=== PATIENT | female | born 1945 | race Caucasian/White ===

== ENCOUNTER 2020-04-23 14:56 | Outpatient (CLI) | payer MEDICARE, SELFPAY ==
--- NOTE | ~2020-04-23 | XR_ITS ---
XR hip RT min 2V DATE: 04/23/2020 16:07 INDICATION: Increased pain, reduced mobility TECHNIQUE: 2 views COMPARISON: None FINDINGS: There is severe right hip joint space narrowing, with obliteration of the joint space super olaterally. There is bone destruction at the lateral aspect of the femoral head and apparently lateral aspect of the acetabulum as well. Right hip joint infection and osteomyelitis are suspected. Differential rick gnosis includes avascular necrosis of the femoral head and severe osteoarthritis. No fracture is evident. Diffuse osteopenia. IMPRESSION: Severe joint space narrowing and bone destruction at the lateral aspect of the femoral he ad and acetabulum, suggesting infected joint, associated osteomyelitis Reviewed, dictated and finalized at location A. [employer] ARTISTIC DIRECTOR IMPRESSION: Severe joint space narrowing and bone destruction at the lateral as pect of the femoral head and acetabulum, suggesting infected joint, associated osteomyelitis
--- NOTE | ~2020-04-23 | XR_ITS ---
EXAMINATION: XR knee RT min 4V DATE: 04/23/2020 16:08 INDICATION: Right knee pain. TECHNIQUE: 4 views of right knee were obtained. COMPARISON: None. FINDINGS: There is varus angulation at the knee. No fracture. There is diffuse osteopenia. There is s evere osteoarthritis of medial compartment and mild osteoarthritis of lateral and patellofemoral comp artments. No knee joint effusion. IMPRESSION: 1. Severe right knee osteoarthritis. Reviewed, dictated and finalized at location A. CIAL LAW CLERK
--- NOTE | ~2020-04-23 | XR_ITS ---
EXAMINATION: XR knee LT min 4V DATE: 04/23/2020 16:08 INDICATION: Left knee pain. TECHNIQUE: 4 views of left knee were obtained. COMPARISON: None. FINDINGS: There is varus angulation at the knee. No fracture. There is severe osteoarthritis of media l compartment and mild osteoarthritis of lateral and patellofemoral compartments. There is chondrocal cinosis of the menisci. There is a small knee joint effusion. IMPRESSION: 1. Severe left knee osteoarthritis. 2. Small left knee joint effusion. Reviewed, dictated and finalized at location A. RAISING DIRECTOR
== END 2020-04-23 14:57 | disposition home or self-care (01) ==
PROVIDERS: PCP Family Medicine
DX: M17.0 Bilateral primary osteoarthritis of knee (principal); M25.462 Effusion, left knee; M25.551 Pain in right hip
CPT/HCPCS: 73502; 73564

== ENCOUNTER 2020-05-01 10:08 | Emergency (ER) | payer MEDICARE, SELFPAY ==
--- NOTE | ~2020-05-01 | CT_ITS ---
EXAMINATION: CT hip RT wo con DATE: 05/01/2020 11:25 INDICATION: Severe right hip arthritis on prior] radiographs with appearance suggestive of possible o steomyelitis. TECHNIQUE: High resolution computed tomography (CT) of the right hip was performed without intravenou s contrast. Additional sagittal and coronal reconstructions were performed. Automated exposure contro l and iterative reconstruction technique were employed. The dose-length product was 887.11 mGy-cm. COMPARISON: Right hip radiographs dated 04/23/2020 FINDINGS: No fracture. Advanced osteoarthritis at the right hip with severe joint space narrowing with bone-on- bone apposition. There is subarticular sclerosis and cystic change along both sides of the joint spac e. There is remodeling with loss of bone stock along the along the cephalad aspect of the right femor al head. There are chronic erosions with sclerotic margins on the superolateral femoral head neck remi ction. The joint space narrowing and remodeling of the bones results in mild superolateral migration of the femoral head relative to the epicenter of the acetabulum. The inferomedial aspect of the joint space is now partially filled with prominent marginal osteophytes arising from the inferomedial aspe ct of the femoral head and inferior aspect of the acetabulum. There is suggestion of possible develop ing fusion across the joint spaces, correlate with physical exam for residual mobility at the hip alejandro nt. No significant right hip joint effusion. Mild fatty atrophy of the musculature about the right hi p and proximal thigh. There are few diverticula along the visualized portion of the sigmoid colon wit hout adjacent inflammatory change to suggest diverticulitis. Bladder and uterus are unremarkable. No pathologically enlarged right pelvic or inguinal lymphadenopathy. IMPRESSION: 1. Advanced right hip osteoarthritis potentially with developing ankylosis. No joint effusion or othe r findings to raise suspicion for septic arthritis/osteomyelitis. Reviewed, dictated and finalized at location B. SOM TECH IMPRESSION: 1. Advanced right hip osteoarthritis potentially with developing ankylosis. No joint effusion or other findings to raise suspicion for septic arthritis/osteom yelitis.
[2020-05-01 10:14] VITALS: BP 146/70; PULSE 78; RESP 16; TEMP 36.4; O2SAT 98
--- NOTE | 2020-05-01 10:21 | ED.GENADULT ---
HPI - General Adult General Chief complaint: Unspecified Stated complaint: hip pain Time Seen by Provider: 05/01/20 10:20 History of Present Illness HPI narrative: Sent here by PCP for possible osteo myelitis of the right hip. She reports that she has chronic pain in the right hip and knees bilaterally. This pain has worsened recently. She had x-rays done yesterday showing possible osteomyelitis or avascular necrosis of the the right hip. She reports no significant trauma. No fever or other systemic symptoms. Related Data Allergies Allergy/AdvReac Type Severity Reaction Status Date / Time No Known Allergies Allergy Verified 05/01/20 10:13 Review of Systems Review of Systems: All systems reviewed & are unremarkable except as noted in HPI and below Constitutional: Constitutional: Denies chills and Denies fever(s) Eyes: Eyes: Reports no additional eye complaints ENT: Reports system reviewed and no additional complaints, except as documented Cardiovascular: Cardiovascular: Denies chest pain Respiratory: Respiratory: Reports dyspnea on exertion Gastrointestinal: Gastrointestinal: Denies nausea and Denies vomiting Neurologic: Denies weakness [facility] Family History Family History (Updated 01/03/17 @ 08:00 by DOCTOR UNKNOWN) Sibling Hypertension Family history of malignant neoplasm of breast in first degree relative Father Hypertension Social History Social History Smoking status: Never smoker Alcohol intake: never Gender identity (if verbalized by the patient): Female Comments She reports no active medical issues Exam Const: General: no acute distress and alert Nutritional Appearance: obese Orientation/consciousness: patient oriented x3 HENMT: Head: normal to inspection Neck: Neck: normal visual inspection Chest: Chest palpation & inspection: no tenderness Resp: Effort & Inspection: normal respiratory effort Auscultation: clear to auscultation bilaterally, no rales, no rhonchi and no wheezes Cardio: Jugular venous distension: no JVD Rate: regular rate Rhythm: regular rhythm Heart sounds: no murmurs GI: Inspection: non-distended GI Palp: Yes Soft to palpation and No Tenderness to palpation present (GI) Skin: General skin exam: normal color Neuro: General: patient oriented x3, gait normal, moves all extremities and CN's II-XI intact bilaterally Speech: normal speech Extrem: General: edema bilateral (2+) Psych: Appearance: well kempt Affect: normal affect Course Course Emergency Course: CT of the hip consistent with severe osteoarthritis. Discussed with Dr. Aquino. He is recommending follow-up with PCP and possibly outpatient refferal to ortho at a later date. Dr. Werner contacted. He will follow-up with her next week. He would like me to prescribe a small amount of pain medication until then. Vital Signs Vital signs: Vital Signs Temperature 36.4 C L 05/01/20 10:14 Pulse Rate 78 05/01/20 10:14 Respiratory Rate 16 05/01/20 10:14 Blood Pressure 146/70 H 05/01/20 10:14 Pulse Oximetry 98 05/01/20 10:14 Temperature 36.4 C L 05/01/20 10:14 Pulse Rate 80 05/01/20 12:21 Respiratory Rate 12 05/01/20 12:21 Blood Pressure 136/73 05/01/20 12:21 Pulse Oximetry 98 05/01/20 12:21 Medical Decision Making Medical Records Medical records reviewed: Yes I reviewed the external patient's medical records. Vital Signs Vital Signs: Vital Signs Temperature 36.4 C L 05/01/20 10:14 Pulse Rate 78 05/01/20 10:14 Respiratory Rate 16 05/01/20 10:14 Blood Pressure 146/70 H 05/01/20 10:14 Pulse Oximetry 98 05/01/20 10:14 Temperature 36.4 C L 05/01/20 10:14 Pulse Rate 80 05/01/20 12:21 Respiratory Rate 12 05/01/20 12:21 Blood Pressure 136/73 05/01/20 12:21 Pulse Oximetry 98 05/01/20 12:21 Lab Data Lab results reviewed: Yes I reviewed the patient's lab results. Imaging Data Radiologist's impression: ITS Impressions
--- NOTE | 2020-05-01 10:34 | ECG_ITS ---
Measurements Intervals [place] Rate: 79 P: 44 MN: 170 QRS: -11 QRSD: 78 T: 47 QT: 375 QTc: 431 Interpretive Statements SINUS RHYTHM DELAYED PRECORDIAL R/S TRANSITION BORDERLINE T WAVE ABNORMALITY- ANTERIOR LEADS BASELINE ARTIFACT- II, III, AVF, V4 BORDERLINE ECG Electronically Signed On 05-01-2020 11:09:44 STATIONARY ENGINEER SUPERVISOR by Malik Dietrich D.O.
[2020-05-01 12:21] VITALS: BP 136/73; PULSE 80; RESP 12; O2SAT 98
== END 2020-05-01 13:38 | disposition home or self-care (01) ==
PROVIDERS: Emergency Provider Emergency Medicine; PCP Family Medicine
DX: M16.11 Unilateral primary osteoarthritis, right hip (principal); R94.31 Abnormal electrocardiogram [ECG] [EKG]
CPT/HCPCS: 73700; 93005; 99284

== ENCOUNTER 2020-06-04 13:15 | Outpatient (RCR) | payer MEDICARE, SELFPAY ==
--- NOTE | 2020-05-14 17:53 | PTOPEVAL ---
PHYSICAL THERAPY EVALUATION Thank you for referring Cristina Will to [facility].? The patient is scheduled to be seen for therapy?1 x/week for 4 weeks. Please review, sign, date and return this plan of care JOHNATHON. I agree with and certify that the following plan of care is medically necessary. Referring Physician Date Attending Provider: Sascha Werner MD *PT Outpatient Evaluation Start: 05/14/20 13:36 Freq: Status: Active Protocol: Document 05/14/20 13:20 MLV (Rec: 05/14/20 14:23 MLV [id number]) Therapy Assessment Status Assessment Status Evaluation Evaluation Information Problem Diagnosis dena. knee DJD/pain Onset chronic and progressive Cause no injury Additional Evaluation Detail The patient reports a progressive increase in dena. knee pain and right hip pain and the symptoms are now affecting her ability to get around. The patient has been using a rollator walker for about 1.5 years and now requires w/c on outings for last few months due to pain/ limits. The patient's goal is to have less pain with mobility in her home. The patient also has pain with sleeping and has a goal to sleep better with less pain. Diagnostic Tests X-Rays For This Problem Yes: severe dena. knee DJD Previous Treatments Previous Treatments For This Problem none Prior Level of Function Activity Level (Last 3 Months) Occupation retired Hand Dominance Right Activity of Daily Living Ability Independent Indoor/Home Mobility Independent Community Mobility Needs Some Help Stairs Ability Independent Functional Cognition (Planning, Shopping Needs Some Help , Taking Medications) Cooking No Cleaning No Laundry Yes Shopping No Driving No Home Setting Home Type House,Multiple Levels Environmental Barriers Jerilyn, Carpet,Jerilyn, Laminate Living Situation With Adult Child Support Available Local Family Support Mobility Assistive Devices (Used Last 3 Walker, Rollator,Wheelchair, Months) Manual,Wheelchair, Scooter Bathroom Environment Kristyn
--- NOTE | 2020-05-30 13:32 | PCPTNOTE ---
Patient called & cancelled scheduled appointment this date due to foot swelling and is calling the
--- NOTE | 2020-06-11 12:37 | PCPTNOTE ---
Patient called & cancelled scheduled appointment this date due to hip pain. Rescheduled.
--- NOTE | 2020-06-20 15:23 | PCPTNOTE ---
Note on 06/11/20 incorrect- patient had cancelled but did not reschedule and has not called to reschedule. Last appointment was to be a reassessment. DC PT at this time.
--- NOTE | 2020-06-20 15:25 | PCPTNOTE ---
PHYSICAL THERAPY DISCHARGE Attending Provider: Sascha Werner MD Patient:Cristina Will Date of :1945 Patient has not returned for any further treatments since 06/04/2020, therefore she will be discharged at this time. Patient?s initial visit was on 05/14/2020 13:15 and she had a total of 2 visits. The goals have not been met; only seen for 2 visits.. Thank you for referring this patient to [facility]. Please review, sign, date and return this discharge summary JOHNATHON. I have been updated about the patient's current status and I agree with discharge from the above service at this time. Referring Physician Date
== END 2020-07-08 14:11 | disposition home or self-care (01) ==
LOC: ANHPT 13:15
PROVIDERS: PCP Family Medicine; Visit Provider Family Medicine
DX: M25.551 Pain in right hip (principal); M25.561 Pain in right knee; M25.562 Pain in left knee
CPT/HCPCS: 97110; 97162; 97530

== ENCOUNTER 2020-10-06 15:30 | Outpatient (RCR) | payer MEDICARE, SELFPAY ==
--- NOTE | 2020-08-25 17:56 | PTOPEVAL ---
PHYSICAL THERAPY EVALUATION AND PLAN OF CARE Thank you for referring Cristina Will to [facility].? The patient is scheduled to be seen for therapy? 2x/month (every other week) for 4 visits to accomodate patient's ability to get transportation to attend visits. Please review, sign, date and return this plan of care JOHNATHON. I agree with and certify that the following plan of care is medically necessary. Referring Physician Date Attending Provider: Sascha Werner MD Evaluation Outpatient Past Medical History Genitourinary History Hx Other Genitourinary Disorders Yes: incontinence Musculoskeletal History Hx Arthritis Yes: severe DJD dena. knees and right hip Hx Back Pain Yes Psychosocial History Hx Anxiety Yes Hx Depression Yes Other History Hx Other Medical Conditions Yes: morbid obesity (BMI 45-49) Diagnosis bilateral knee pain; OA Onset chronic Subjective Information States she has severe Query Text:As Reported By Patient/ bilateral knee OA and right Family hip OA. At the end of August she is going to see an orthopedic surgeon. Uses a rollator walker at home, but any time she has a chance to use a wheelchair she does. States that her knees are probably about the same, but the right side feels worse because of the right hip also. She has pain with sitting, sleeping. standing, walking. States that she used to be lift her right leg into bed, but now she has to pull on her clothes to get them into bed. Self Report Pain Assessment Right Hip(s) Reported Pain Level 9 Pain Frequency Chronic,Continuous Bilateral Knee(s) Reported Pain Level 8 Pain Description With Movement Pain Frequency Chronic,Continuous Other Pain Description unstable Lowest Pain Intensity 8 Greatest Pain Intensity 9 Pain Aggravating Factors Walking,Weight Bearing/ Standing Pain Behaviors Anxious,Guarding Pain Score Pain Score 8,9: Self Report Interventions Used Interventions Used By Clinicians Exercise Lower Extremity Range of Motion Hip Range of Motion Right Hip Flexion Range of Motion - Active 80 Hip Extension Range of Motion - Active -25 Knee Range of Motion B
--- NOTE | 2020-09-24 14:36 | PCPTNOTE ---
Patient called & cancelled scheduled appointment this date due to sacral cyst. She rescheduled for next week.
--- NOTE | 2020-10-20 13:41 | PCPTNOTE ---
Patient called & cancelled scheduled appointment this date. Plans to reschedule this appointment.
--- NOTE | 2021-01-05 17:36 | PCPTNOTE ---
PHYSICAL THERAPY DISCHARGE NOTE Attending Provider: Sascha Werner MD Patient:Cristina Will Date of :1945 Patient has not returned for any further treatments since 10/06/2020, therefore will be discharged at this time. Patient?s initial visit was on 08/25/2020 had a total of 4 visits. Thank you for referring this patient to [facility]. Please review, sign, date and return this discharge summary JOHNATHON. I have been updated about the patient's current status and I agree with discharge from the above service at this time. Referring Physician Date
== END 2020-11-23 23:59 | disposition home or self-care (01) ==
LOC: ANHPT 15:30
PROVIDERS: PCP Family Medicine; Visit Provider Family Medicine
DX: M16.11 Unilateral primary osteoarthritis, right hip (principal)
CPT/HCPCS: 97110; 97163

== ENCOUNTER 2021-02-23 07:37 | Outpatient (RCR) | payer MEDICARE, SELFPAY ==
[2020-12-03 14:04] VITALS: BMI 48.8
--- NOTE | 2021-02-02 13:38 | PCWOUND ---
WOCN NOTE patient had scheduled appointment for today 02/02/21 at 1330. Patient calls at 1335 stating she hadn't left her house yet. Patient has been rescheduled for Tuesday02/03/21.
--- NOTE | 2021-03-02 13:37 | PCWOUND ---
WOCN NOTE patient called 10 minutes(1320) before her appointment time (1330) to say she was now ready to leave her house and was asking is she could still come in. Stated that if she could be here within 20 minutes that we could still see her today. Patient states that she should be able to that. Patient called back at 1335 stating they were just now leaving her subdivision and that she wouldn't make it in time. Patient rescheduled for tomorrow 03/03/21 at 1330.
--- NOTE | 2021-03-03 12:49 | PCWOUND ---
WOCN NOTE Patient left message to cancel for today, she just woke up and can not make it. called her back and rescheduled for Tuesday at 1330. Patient asked what she can do at home to help her legs as she is changing the dressing up to 4 times per day. Reeducated patient on reducing or avoiding salt in diet, elevating legs when sitting, exercising as much as possible, wearing compression, proper wound care. patient states you do not put compression on me when I am there anymore I reeducated patient that due to her large amount of serous exudate she is supposed to be wearing at minimum her tubigrip over her dressing and changing as needed or at least daily. Patient has received education multiple times on the phone and at every visit as she is non compliant. Reaffirmed with patient that she still has an appointment coming up with the vein specialist for evaluation. she states she does on the .
== END 2021-03-03 23:59 | disposition home or self-care (01) ==
LOC: ANHWOC 07:37
PROVIDERS: PCP Family Medicine; Visit Provider Family Medicine
DX: M16.11 Unilateral primary osteoarthritis, right hip (principal); M25.551 Pain in right hip; M25.561 Pain in right knee; M25.562 Pain in left knee
CPT/HCPCS: 29581; 99212; 99213; A9270; G0463

== ENCOUNTER 2021-03-09 13:31 | Outpatient (RCR) | payer MEDICARE, SELFPAY ==
[2021-03-04 00:05] VITALS: BMI 48.8
== END 2021-05-22 12:26 | disposition home or self-care (01) ==
LOC: ANHWOC 13:31
PROVIDERS: PCP Family Medicine; Visit Provider Family Medicine
DX: M16.11 Unilateral primary osteoarthritis, right hip (principal); M25.551 Pain in right hip; M25.561 Pain in right knee; M25.562 Pain in left knee
CPT/HCPCS: 99213; G0463

== ENCOUNTER 2021-03-13 16:58 | Inpatient (IN) | payer MEDICARE, MEDICAID, SELFPAY ==
--- NOTE | ~2021-03-13 | US_ITS ---
US renal BI 03/15/2021 09:03 Procedure: Realtime transabdominal ultrasound of the kidneys and bladder. Indication: Renal failure Comparison: No prior studies for comparison. Findings: Renal echotexture is normal bilaterally without hydronephrosis, contour deforming mass or r enal calculus. The right kidney measures 9.4 cm and left kidney measures 10.9 cm. Bladder within nor mal limits. Fatty infiltration of the liver. Impression: 1: Unremarkable renal ultrasound. No stones, masses or hydronephrosis. Reviewed, dictated and finalized at location A. KFAST SUPERVISOR Impression: 1: Unremarkable renal ultrasound. No stones, masses or hydronephrosis.
--- NOTE | ~2021-03-13 | US_ITS ---
EXAMINATION: US venous doppler [facility] DATE: 03/16/2021 16:54 INDICATION: Lower limb edema. TECHNIQUE: Grayscale ultrasound images without and with compression and Doppler ultrasound images of the bilateral lower extremity veins were obtained. COMPARISON: None. FINDINGS: The visualized portions of right common femoral vein, profunda (deep) femoral vein, femoral vein, pop liteal vein, peroneal veins, posterior tibial veins, and greater saphenous vein outflow are patent. The visualized portions of left common femoral vein, profunda femoral vein, femoral vein, popliteal v ein, peroneal veins, posterior tibial veins, and greater saphenous vein outflow are patent. IMPRESSION: 1. No deep venous thrombosis. Reviewed, dictated and finalized at location A. K CAR AND BUS CLEANER
--- NOTE | ~2021-03-13 | US_ITS ---
EXAMINATION: US art doppler w press LE BI EXAM DATE: 03/14/2021 16:53 INDICATION: Chronic venous stasis ulcers and weak pedal pulse . TECHNIQUE: Segmental pressures and plethysmographic and Doppler waveforms of the brachial and lower e xtremity arteries were obtained. There is no prior study for comparison. FINDINGS: Notation was made that technologist was unable to complete right-sided posterior tibial art mike evaluation due to pain, and on the left side patient had a pressure dressing. Right and left brachial artery pressures of 103 mm Hg and 105 mm Hg, respectively, are concordant (no rmal difference <= 30 mmHg). RIGHT LEG: The ankle-brachial index (NIKOLE) is 0.92 (normal >= 0.9-1). The great toe-brachial index (TBI) is 0.59 (normal >= 0.65). The lower extremity ratios, segmental pressure gradients as follows; Dorsalis pedis: Could not obtain ( mmHg). Posterior tibial: 0.92 (97 mmHg). (Normal gradients <= 20-30 mmHg between adjacent levels on the same leg or the same levels on the two legs). Arterial waveforms are monophasic. LEFT LEG: The ankle-brachial index (NIKOLE) is 1.01 (normal >= 0.9-1). The great toe-brachial index (TBI) is 0.49 (normal >= 0.65). The lower extremity ratios, segmental pressure gradients as follows; Dorsalis pedis: 1.01 (106 mmHg). Posterior tibial: Could not obtain ( mmHg). (Normal gradients <= 20-30 mmHg between adjacent levels on the same leg or the same levels on the two legs). Arterial waveforms are monophasic. IMPRESSION: 1. Right ankle-brachial index 0.92, normal. 2. Left ankle-brachial index 1.01, normal. Reviewed, dictated and finalized at location G. EMIC SUPPORT CENTER DIRECTOR
--- NOTE | ~2021-03-13 | XR_ITS ---
EXAMINATION: XR chest 1V portable INDICATION: Bilateral lower limb swelling TECHNIQUE: Portable AP chest at 1733 hours COMPARISON: None available FINDINGS: The heart size is upper limits of normal for technique. There is a mild diffuse interstitia l pattern. No pleural effusion or pneumothorax is identified. IMPRESSION: 1. Mild diffuse interstitial pattern, likely mild pulmonary edema. Reviewed, dictated and finalized at location F. AND BEVERAGE SERVICE MANAGER
[2021-03-13 16:58] VITALS: BP 104/85; PULSE 103; RESP 30; O2SAT 96
[2021-03-13 17:18] LABS: Basophils Absolute Auto 0.1 K/mm3 (0.0-0.1); Basophils Percent Auto 0.3 % (0.2-1.2); Eosinophils Absolute Auto 0.1 K/mm3 (0-0.3); Eosinophils Percent Auto 0.8 % (0-4.4); Hematocrit 26.1 % (37.0-47.0); Hemoglobin 7.8 g/dL (12.0-15.0); Immature Granulocyte Absolute 0.21 K/mm3 (0.00-0.031); Immature Granulocyte Percent A 1.2 % (0-0.5); Lymphocytes Absolute Auto 2.63 K/mm3 (0.9-3.2); Lymphocytes Percent Auto 15.6 % (18.3-44.2); Mean Corpuscular HGB Conc 29.9 g/dl (32-36); Mean Corpuscular Hemoglobin 24.1 pg (26-34); Mean Corpuscular Volume 80.8 fl (80-100); Mean Platelet Volume 8.5 fl (7.4-10.4); Monocytes Absolute Auto 1.1 K/mm3 (0.1-0.6); Monocytes Percent Auto 6.6 % (2.6-8.5); Neutrophils Absolute Auto 12.7 K/mm3 (1.3-6.7); Neutrophils Percent Auto 75.5 % (45.5-73.1); Nucleated Red Blood Cells Perc 0.1 % (0.0-0.2); Platelet Count Result 544 k/mm3 (150-375); Red Blood Count 3.23 M/mm3 (4.2-5.4); White Blood Count 16.9 K/mm3 (4.5-10.0)
[2021-03-13 17:28] LABS: INR 1.1; Prothrombin Time 14.3 Seconds (11.1-14.7)
[2021-03-13] MEDS: HYDROcodone/acetaminophen (*CRX) 5-325 MG TABLET 1 TAB PO (17:35)
[2021-03-13 17:39] LABS: Anion Gap 14 mmol/L (8-16); Blood Urea Nitrogen 79 mg/dL (7-17); Calcium 9.2 mg/dL (8.4-10.2); Carbon Dioxide 21 mmol/L (22-30); Chloride 92 mmol/L (98-107); Estimated CRCL calculation 31 ml/min; Estimated Glomerular Filt Rate 26; Glucose 314 mg/dL (65-110); Potassium 5.2 mmol/L (3.4-5.0); Sodium 127 mmol/L (137-145)
[2021-03-13 17:53] LABS: CRP 6.1 mg/dL (<1.0)
--- NOTE | 2021-03-13 17:53 | ED.LOWEXIN ---
HPI - Extremity Injury (Lower) General Chief Complaint: Extremity Injury, Lower <Meseret Toribio PA-C - Last Filed: 03/13/21 21:56> Stated Complaint: profuse leg bleeding <ESTEPHANIE Yang Last Filed: 03/13/21 21:56> Time Seen by Provider: 03/13/21 17:19 <Meseret Toribio PA-C - Last Filed: 03/13/21 21:56> Source: patient <ESTEPHANIE Yang Last Filed: 03/13/21 21:56> Mode of arrival: EMS <ESTEPHANIE Yang Last Filed: 03/13/21 21:56> Limitations: no limitations <ESTEPHANIE Yang Last Filed: 03/13/21 21:56> History of Present Illness HPI Narrative: This is a 75 year old female that presents to the ER for bleeding wound. Reports history of lower extremity edema. Ongoing for months. She has been seeing wound care here at [place] for this. Reports she has had trouble with bleeding varicose veins to the lower extremities. She was itching her leg today and the left leg starting bleeding. They were unable to get the bleeding controlled so they called EMS. She is not on any blood thinners. Reports bilateral lower extremity redness and swelling. Denies fever, chest pain or shortness of breath. <ESTEPHANIE Yang Last Filed: 03/13/21 21:56> Related Data Home Medications: Home Medications Medication Instructions Recorded Confirmed amitriptyline 25 mg PO TID 03/13/21 03/13/21 chlorthalidone 25 mg PO DAILY 03/13/21 03/13/21 clotrimazole 1 applic TOPICAL BID 03/13/21 03/13/21 tramadol 50 mg PO TID PRN 03/13/21 03/13/21 <ESTEPHANIE Yang Last Filed: 03/13/21 21:56> Allergies/Adverse Reactions: Allergies Allergy/AdvReac Type Severity Reaction Status Date / Time No Known Allergies Allergy Verified 12/03/20 14:19 <ESTEPHANIE Yang Last Filed: 03/13/21 21:56> Review of Systems Review of Systems: CONSTITUTIONAL: Denies fever CARDIOVASCULAR: Denies chest pain RESPIRATORY: Denies dyspnea. SKIN: Reports erythema and edema <Meseret Toribio PA-C - Last Filed: 03/13/21 21:56> All systems reviewed & are unremarkable except as noted in HPI and below <Meseret Toribio PA-C - Last Filed: 03/13/21 21:56> [facility] Past Medical History Medical History: Medical History Anxiety Arthritis Bilateral knee pain BMI greater than 40 Cellulitis Chronic right hip pain Claustrophobia Degenerative joint disease of knee Degenerative joint disease of right hip Frequency of urination History of cellulitis History of UTI Painful urination Poor dentition Sleep disorder SOB (shortness of breath) Urination pain Vision abnormalities Wears glasses <Meseret Toribio PA-C - Last Filed: 03/13/21 21:56> Surgical History Surgical History: Surgical History History of bilateral carpal tunnel release History of laparoscopic cholecystectomy <ESTEPHANIE Yang Last Filed: 03/13/21 21:56> Family History Family History: Family History Sibling Hypertension Family history of malignant neoplasm of breast in first degree relative Father Hypertension Other Arthritis Asthma Lung disease Skin cancer <Meseret Toribio PA-C - Last Filed: 03/13/21 21:56> Social History Social History: Social History (Updated 03/13/21 @ 23:11 by Thais Wade NP) Social History: The patient is and has 2 children. She lives with her daughter. She is retired. Patient is a former smoker. She denies any drugs alcohol marijuana or illicit drugs. Her 2 children are her durable power of employment law attorney for healthcare. Code status full code Smoking packs per day: 1.5 Smoking cigarettes per day: 30.0 Years smoked: 55 Smoking pack-years: 82.50 Smoking status: Former smoker Smoking end date: 09/28/18 Alcohol intake: never Drinks per week: 1 Substan
[2021-03-13 17:59] LABS: Hypochromasia 1+ (NORMAL); Platelet Estimate Increased (Adequate)
[2021-03-13 18:00] LABS: Anisocytosis 1+ (NORMAL)
[2021-03-13 18:03] LABS: NT Pro B Type Natriuretic Pept 345 pg/mL (5-100)
[2021-03-13 18:04] LABS: Erythrocyte Sedimentation Rate 54 mm/hr (0-20)
[2021-03-13] MEDS: MORPHINE SULFATE (*CRX) 2 MG/ML INJ IV PUSH (18:32)
[2021-03-13 19:17] VITALS: BP 96/44; PULSE 99; RESP 26; O2SAT 100
[2021-03-13 20:01] VITALS: BP 95/60; PULSE 97; RESP 28; TEMP 35.5; O2SAT 96
[2021-03-13 20:16] LABS: Lactic Acid Reflex 3.1 mmol/L (0.7-2.1)
--- NOTE | 2021-03-13 20:26 | PC.NURSE ---
Spoke with Scott from pharmacy, vancomycin dose to be changed per protocol prior to sending to ED.
[2021-03-13 20:33] LABS: Glucose Point of Care 228 mg/dl (65-105)
--- NOTE | 2021-03-13 21:02 | PM.IMHP ---
H&P: HPI History of Present Illness Date/Time: 03/13/21 21:02 this is a 75-year-old female patient who has some peripheral artery disease and has chronic venous stasis ulcers to her lower extremities. The patient stated that she had been going multiple days to the wound care clinic. However she stated that now she is down to once a week. She feels that her legs are getting worse. Today the patient was brought in due to a bleeding varicose vein to lower extremity. EMS had to place a tourniquet on the leg to stop the bleeding. The patient also stated that she started itching her legs today and they started to bleed. She was unable to control the bleeding so she called EMS. The patient is not on any blood thinners. She denied any fever chills or shortness of breath. Patient is rolling around in the bed and screaming in pain. The patient was given a [place] in the emergency room as well as morphine and she stated that her pain did not feel any better. She stated that typically they place Silvadene cream on her legs and dress it and that helps with the pain. The patient stated that she had been taking something for her neuropathy in the past but it was discontinued because it would worsen her peripheral artery disease. The patient stated that she was told to go to a vascular surgeon and she has not done so as of yet. She stated that she was told that her legs would not heal she did not go to a vascular surgeon. The patient stated that the wound care clinic told her they did all they could do and that her wounds will not heal without a vascular surgeon. I explained to the patient that we do not have a vascular surgeon here. The the bleeding has stopped. Her white count is 16.9. H&H is 7.8 and 26.1. Sodium is 127. Potassium 5.2. Creatinine 1.9. Her blood sugar initially was 314 and is now 228. The patient denies having any history of diabetes. Her C reactive protein is 6.1 and lactic is 3.1. We do not have any previous labs to compare these values. Chest x-ray was read as mild diffuse interstitial pattern likely mild pulmonary edema. The patient is being admitted to observation status on the date of service of 03/13/2021. Chief Complaint: Bleeding to lower extremities Review of Systems Review of Systems: All systems reviewed & are unremarkable except as noted in HPI and below Constitutional: Constitutional: Reports as per HPI and Reports no additional constitutional complaints Eyes: Eyes: Reports as per HPI and Reports no additional eye complaints ENT: Reports system reviewed and no additional complaints, except as documented and Reports Normal hearing present Cardiovascular: Cardiovascular: Reports no additional cardiovascular complaints Respiratory: Respiratory: Reports no additional respiratory complaints and Reports no additional respiratory complaints Gastrointestinal: Gastrointestinal: Reports as per HPI and Reports no additional gastrointestinal complaints Musculoskeletal: Musculoskeletal: Reports no additional musculoskeletal complaints Integumentary/Breasts: Skin/Breast: Reports system reviewed and no additional complaints, except as docu and Reports as per HPI Neurologic: Reports system reviewed and no additional complaints, except as documented, Reports as per HPI and Reports Normal hearing present Psychiatric: Psychiatric: Reports no additional psychiatric complaints and Reports as per HPI Endocrine: Endocrine: Reports no additional endocrine complaints Hematologic/Lymphatic: Hematologic/Lymphatic: Reports no additional hematologic/lymphatic complaints Allergic/Immunologic: Allergic/Immunologic: Reports no additional allergic/immunologic complaints PMFSH Past Medical History Medical History Anxiety Arthritis Bilateral knee pain BMI greater than 40 Cellulitis Chronic right hip pain Claustrophobia Degenerative joint disease of knee Degenerative joint disease of ri
[2021-03-13 21:20] VITALS: BP 120/47; PULSE 97; RESP 16; O2SAT 100
[2021-03-13 21:28] LABS: Hemoglobin A1C 8.4 % (<5.7)
[2021-03-13 21:36] VITALS: BP 148/62; PULSE 95; RESP 22; TEMP 36.2; O2SAT 99
--- NOTE | 2021-03-13 21:56 | ADMGEN ---
This patient, Cristina Will, was admitted to Medical Room 243-01. Patient/family oriented to hospital policies and general routines including ID bracelet, bed and alarms, visiting hours, pain management, procedures, bathroom and other care routines, personal items, smoking policy, room service/diet, and visiting hours. Information on how to activate the Rapid Response Team has been discussed. Patient/Family are encouraged to report perceived risks to care and to ask questions if they do not understand what they are told or what they should do.
[2021-03-13 22:00] VITALS: BMI 42.7
[2021-03-13] MEDS: HYDROmorphone HCL INJ (*CRX) 1 MG/ML SYR 0.5 MG IV PUSH (22:39)
[2021-03-13] MEDS: LORazepam (*CRX) 0.5 MG TABLET PO (22:41)
[2021-03-13] MEDS: SILVERGEL (ELTA) 45 ML 1 APPLIC TOPICAL (22:46)
[2021-03-13 23:04] LABS: Reflex Lactic Acid Yes or No Add Lactic
[2021-03-13 23:31] LABS: Hematocrit 23.4 % (37.0-47.0)
[2021-03-13 23:45] LABS: Hemoglobin 6.9 g/dL (12.0-15.0)
[2021-03-13 23:47] LABS: Anion Gap 15 mmol/L (8-16); Blood Urea Nitrogen 75 mg/dL (7-17); Calcium 8.9 mg/dL (8.4-10.2); Carbon Dioxide 18 mmol/L (22-30); Chloride 94 mmol/L (98-107); Estimated CRCL calculation 24 ml/min; Estimated Glomerular Filt Rate 22; Glucose 242 mg/dL (65-110); Potassium 5.5 mmol/L (3.4-5.0); Sodium 127 mmol/L (137-145)
[2021-03-14] VITALS (7 sets, daily range): BP systolic 98–122; BP diastolic 44–68; PULSE 74–102; RESP 17–20; TEMP 36.3–36.8; O2SAT 90–100
--- NOTE | 2021-03-14 | ECHO_ITS ---
Patient Info Name: Cristina Will Age: 75 years : 1945 Gender: Female Ht: 64 in Wt: 249 lbs BSA: 2.32 m2 HR: 102 bpm BP: 122 / 64 mmHg Heart Rhythm: Sinus Rhythm, Tachycardia Technical Quality: Good Exam Date: 03/14/2021 8:21 AM Exam Location: [facility] Pulmonary Exam Room: [facility] Patient Status: Outpatient Admit Date: 03/13/2021 Staff Ordering Physician: Thais Wade NP 911 Operator: Amanda Smith RDCS Attending Provider: Hiren Pryor M.A., MD Referring Physician: Sheri BAH; Exam Type: CA echo doppler color flow Study Info Indications - pulmonary edema elevated bnp Complete two-dimensional, color flow and Doppler transthoracic echocardiogram is performed. Summary 1. Complete two-dimensional, color flow and Doppler transthoracic echocardiogram is performed. 2. Normal left ventricular size with borderline concentric hypertrophy. Hyperdynamic left ventricular systolic function with an ejection fraction of 74%. No focal wall motion abnormalities. Grade 1 diastolic dysfunction is present. 3. Left atrial chamber dimension is mildly enlarged. 4. Moderate pulmonary hypertension, estimated pulmonary arterial systolic pressure is 47 mmHg. 5. No significant valve disease. 6. Sinus tachycardia. Left Ventricle Left ventricular chamber dimension is normal. Left ventricular systolic function is hyperdynamic, estimated at >70%. There is mildly increased left ventricular wall thickness. Left ventricular septal wall motion is normal. The left ventricular diastolic function is grade I diastolic dysfunction. Right Ventricle Right ventricular chamber dimension is normal. Right ventricular systolic function is normal. Left Atria Left atrial chamber dimension is mildly enlarged. Right Atria Right atrial chamber dimension is normal. Aortic Valve The aortic valve is trileaflet. There is no aortic valve sclerosis. There is no aortic valve stenosis. There is no aortic valve regurgitation. Pulmonic Valve The pulmonic valve is normal. There is no pulmonic valve stenosis. There is no pulmonic regurgitation. Mitral Valve The mitral valve has normal leaflets. There is no mitral valve stenosis. There is no mitral valve regurgitation. Tricuspid Valve The tricuspid valve leaflets are normal. There is no significant tricuspid valve stenosis. There is trace tricuspid valve regurgitation. Moderate pulmonary hypertension, estimated pulmonary arterial systolic pressure is 47 mmHg. Pericardium/Pleural The pericardium appears normal. There is no pericardial effusion. Inferior Vena Cava Normal inferior vena cava with >50% collapse upon inspiration consistent with Empty right atrial pressure, 10 mmHg. Aorta The aortic root size at the sinus of Valsalva is normal. The prox ascending aorta size is normal. There is mild aortic atherosclerosis. Left Ventricular Outflow Tract Name Value Normal LVOT 2D LVOT Diameter 2.1 cm LVOT Doppler LVOT Peak Gradient 8 mmHg LVOT Mean Gradient 5 mmHg LVOT VTI
[2021-03-14 00:03] LABS: Lactic Acid 4.2 mmol/L (0.7-2.1)
[2021-03-14] MEDS: SODIUM CHLORIDE 0.9% IV 250 ML 30 ML IV CONT (00:41)
[2021-03-14] MEDS: SODIUM CHLORIDE 0.9% IV 1,000 ML 999 ML IV CONT (00:42)
[2021-03-14] MEDS: SODIUM CHLORIDE 0.9% IV 1,000 ML 100 ML IV CONT ×2 (03:13→13:57)
[2021-03-14] MEDS: HYDROmorphone HCL INJ (*CRX) 1 MG/ML SYR 0.5 MG IV PUSH ×2 (03:15→12:07)
[2021-03-14 04:35] LABS: Hematocrit 24.5 % (37.0-47.0); Hemoglobin 7.5 g/dL (12.0-15.0)
--- NOTE | 2021-03-14 04:40 | PC.NURSE ---
PATIENT HAS BEEN RESTLESS AND TEARFUL THIS SHIFT DESPITE PAIN MEDS AND ANTI ANXIETY MEDS GIVEN.
[2021-03-14 04:53] LABS: Hemoglobin A1C 7.9 % (<5.7); Lactic Acid Reflex 1.6 mmol/L (0.7-2.1)
[2021-03-14 04:58] LABS: Alanine Aminotransferase 18 U/L (4-35); Albumin Level 2.9 g/dL (3.5-5.1); Alkaline Phosphatase 68 U/L (38-126); Anion Gap 9 mmol/L (8-16); Aspartate Amino Transferase 31 U/L (14-36); Bilirubin,Total 0.3 mg/dL (0.2-1.3); Blood Urea Nitrogen 74 mg/dL (7-17); CRP 8.9 mg/dL (<1.0); Calcium 8.6 mg/dL (8.4-10.2); Carbon Dioxide 22 mmol/L (22-30); Chloride 97 mmol/L (98-107); Estimated CRCL calculation 28 ml/min; Estimated Glomerular Filt Rate 26; Glucose 186 mg/dL (65-110); Magnesium 2.3 mg/dL (1.6-2.3); Potassium 5.5 mmol/L (3.4-5.0); Sodium 128 mmol/L (137-145)
[2021-03-14 05:23] LABS: Lactate Dehydrogenase 330 U/L (313-618)
[2021-03-14] MEDS: LORazepam (*CRX) 0.5 MG TABLET PO ×2 (06:26→23:01)
[2021-03-14 07:46] LABS: Glucose Point of Care 163 mg/dl (65-105)
[2021-03-14] MEDS: SILVERGEL (ELTA) 45 ML 1 APPLIC TOPICAL (08:43)
[2021-03-14] MEDS: AMITRIPTYLINE HCL 25 MG TABLET PO ×4 (08:43→21:39)
[2021-03-14] MEDS: traMADol HCL (*CRX) 50 MG TABLET PO ×2 (09:35→16:54)
[2021-03-14 09:59] LABS: Hematocrit 25.2 % (37.0-47.0); Hemoglobin 7.9 g/dL (12.0-15.0)
[2021-03-14 11:19] LABS: Glucose Point of Care 201 mg/dl (65-105)
[2021-03-14] MEDS: INSULIN ASPART (*BKC) 100 UNITS/ML SUB-Q (12:06)
--- NOTE | 2021-03-14 12:41 | PM.IMPN ---
Progress Note: A&P Assessment and Plan (1) Cellulitis: Qualifiers: Laterality: right Site of cellulitis: extremity Site of cellulitis of extremity: lower extremity Qualified Code(s): L03.115 - Cellulitis of right lower limb Code(s): L03.90 - Cellulitis, unspecified Status: Acute Assessment and Plan: Continue Primaxin and vancomycin Continue wound care Scheduled Tylenol with p.r.n. and Dilaudid for pain (2) Anemia: Qualifiers: Anemia type: unspecified type Qualified Code(s): D64.9 - Anemia, unspecified Code(s): D64.9 - Anemia, unspecified Status: Acute Assessment and Plan: Likely a combination of chronic disease and blood loss from her wounds 03/14 H&H stable at 7.9 and 25.2 (3) Acute kidney injury: Code(s): N17.9 - Acute kidney failure, unspecified Status: Acute Assessment and Plan: 03/13 creatinine is 1.9 with K 5.2 and Na 127 (baseline unknown) 03/14 creatinine 1.9, K 5.5, Na 128 (likely chronic) (4) Diabetes mellitus: Qualifiers: Diabetes mellitus complication status: with hyperglycemia Diabetes mellitus terminal gauger insulin use: without alf use Diabetes mellitus type: type 2 Qualified Code(s): E11.65 - Type 2 diabetes mellitus with hyperglycemia Code(s): E11.9 - Type 2 diabetes mellitus without complications Status: Acute Assessment and Plan: Basal glargine 20 U Accu-Cheks AC and HS with Sliding scale insulin. 03/14 BS reviewed and trending down (5) Anxiety: Code(s): F41.9 - Anxiety disorder, unspecified Status: Acute Assessment and Plan: As amitriptyline is relatively contraindicated due to her age, 03/14 dose reduced to 25mg at HS 03/14 tramadol stopped due to potential drug interaction with amitriptyline (6) Chronic right hip pain: Code(s): M25.551 - Pain in right hip; G89.29 - Other chronic pain Status: Acute Assessment and Plan: 03/14 Scheduled acetaminophen, stopped tramadol, reduced amitriptyline from 25mg TID to 25mg q HS Subjective Date/time seen: 03/14/21 12:41 Interval history: Admitted March 13 due to cellulitis of legs with open wounds 03/14 visit: Bilateral leg discomfort. Burning. Hydromorphone helps but causes sedation and the effect does not last long. Fatigued. Poor appetite. Denied pain elsewhere. Denied shortness of breath. Denied abnormal bleeding. Denied GI or changes. Knows that at home she ambulates with a walker. She is very sedentary. Review of Systems Review of Systems: All systems reviewed & are unremarkable except as noted in HPI and below Exam Narrative: HEENT: PERRL, sclerae nonicteric, pharyngeal mucosa pink and intact NECK: No JVD CHEST: Clear to auscultation. Normal effort. HEART: NL S1/S2, regular, no murmur ABDOMEN: BS+, soft, nontender, no mass, no bruits EXTREMITIES: Erythema and venous stasis changes bilateral lower legs with warmth and tenderness and nonpitting edema. NEUROLOGIC: CN intact and symmetric to inspection. MUSCULOSKELETAL: Tone and strength symmetric. PSYCH: Alert. Oriented to person, place, and time. Objective Data Vital Signs Vital Signs: Vital Signs - 24 hr 03/13/21 16:58 03/13/21 19:17 03/13/21 20:01 Temperature 96 F L Pulse Rate 103 H 99 97 Respiratory Rate 30 H 26 H 28 H Blood Pressure 104/85 96/44 L 95/60 L Pulse Oximetry 96 100 96 03/13/21 21:20 03/13/21 21:36 03/14/21 01:04 Temperature 97.2 F L 97.9 F Pulse Rate 97 95 94 Respiratory Rate 16 22 H 20 Blood Pressure 120/47 L 148/62 H 102/48 L Pulse Oximetry 100 99 98 03/14/21 01:19 03/14/21 02:19 03/14/21 03:15 Temperature 97.9 F 98 F 98.2 F Pulse Rate 92 101 H 102 H Respiratory Rate 18 20 20 Blood Pressure 98/44 L 118/58 L 122/64 Pulse Oximetry 94 100 97 03/14/21 03:21 Temperature 98.2 F Pulse Rate 102 H Respiratory Rate 20 Blood Pressure 122/64 Pulse Oximetry 97 Intake/Output Intake/Output:
[2021-03-14 16:46] LABS: Glucose Point of Care 163 mg/dl (65-105)
[2021-03-14] MEDS: ACETAMINOPHEN 500 MG TABLET 1000 MG PO ×2 (16:54→23:01)
[2021-03-14] MEDS: HEPARIN SODIUM 5,000 UNITS/ML VIAL 5000 UNITS SUB-Q (21:39)
[2021-03-14] MEDS: INSULIN GLARGINE (*BKC) 100 UNITS/ML 20 UNITS SUB-Q (21:45)
[2021-03-14 21:56] LABS: Glucose Point of Care 175 mg/dl (65-105)
[2021-03-14 22:02] LABS: Add Urine Microscopic? YES; Appearance Urine Clear (Clear); Bacteria Urine Trace /hpf; Bilirubin Urine Negative (Negative); Blood Urine Negative (Negative); Color Urine Yellow (Yellow); Glucose Urine UA 1+ mg/dL (Negative); Ketones Urine Negative (Negative); Leukocyte Esterase Ur Negative LEU/UL (Negative); Mucus Urine Rare /lpf; Nitrate Urine Negative (Negative); Protein Urine Negative (Negative); RBC Urine 0-2 /hpf (0-2); Specific Grav Ur 1.011 (1.001-1.035); Squamous Epithelial Cell Urine Rare /hpf (Few); Urobilinogen Urine Negative mg/dL (<2.0); WBC Urine 0-3 /hpf
[2021-03-15] VITALS (9 sets, daily range): BP systolic 107–138; BP diastolic 48–62; PULSE 91–96; RESP 16–20; TEMP 36.1–36.8; O2SAT 93–98
[2021-03-15] MEDS: SODIUM CHLORIDE 0.9% IV 1,000 ML 100 ML IV CONT ×2 (02:31→20:46)
[2021-03-15 05:38] LABS: Hematocrit 21.9 % (37.0-47.0); Immature Reticulocyte Fraction 31.1 % (3.0-15.9); Mean Corpuscular HGB Conc 31.1 g/dl (32-36); Mean Corpuscular Hemoglobin 24.5 pg (26-34); Mean Corpuscular Volume 79.1 fl (80-100); Mean Platelet Volume 8.4 fl (7.4-10.4); Platelet Count Result 443 k/mm3 (150-375); Red Blood Count 2.77 M/mm3 (4.2-5.4); Red Cell Distribution Width 15.2 % (11.5-14.5); Reticulocyte Hemoglobin Conten 22.4 pg (28.2-35.7); Reticulocyte Percent 3.18 % (0.7-4.3); Reticulocytes Absolute 0.09 B/L (32.2-175.7); White Blood Count 19.2 K/mm3 (4.5-10.0)
[2021-03-15 06:12] LABS: Iron 13 ug/dL (37-170)
[2021-03-15 06:15] LABS: Albumin Level 2.9 g/dL (3.5-5.1); Anion Gap 7 mmol/L (8-16); Blood Urea Nitrogen 53 mg/dL (7-17); Calcium 8.4 mg/dL (8.4-10.2); Carbon Dioxide 24 mmol/L (22-30); Chloride 100 mmol/L (98-107); Estimated CRCL calculation 48 ml/min; Estimated Glomerular Filt Rate 48; Glucose 117 mg/dL (65-110); Potassium 4.5 mmol/L (3.4-5.0); Sodium 131 mmol/L (137-145); Uric Acid 9.3 mg/dL (2.5-7.5)
[2021-03-15 06:21] LABS: Percent Iron Saturation 5 % (20-50)
[2021-03-15 06:26] LABS: Hemoglobin 6.8 g/dL (12.0-15.0)
[2021-03-15 06:47] LABS: CRP 17.8 mg/dL (<1.0)
[2021-03-15 07:47] LABS: Folic Acid 8.2 ng/mL (2.76->20)
[2021-03-15 07:48] LABS: Glucose Point of Care 124 mg/dl (65-105)
[2021-03-15] MEDS: SODIUM CHLORIDE 0.9% IV 250 ML 30 ML IV CONT (08:09)
[2021-03-15] MEDS: SILVERGEL (ELTA) 45 ML 1 APPLIC TOPICAL (09:58)
[2021-03-15] MEDS: ACETAMINOPHEN 500 MG TABLET 1000 MG PO ×3 (09:58→23:58)
[2021-03-15] MEDS: HEPARIN SODIUM 5,000 UNITS/ML VIAL 5000 UNITS SUB-Q ×2 (10:02→20:52)
[2021-03-15 11:36] LABS: Glucose Point of Care 137 mg/dl (65-105)
--- NOTE | 2021-03-15 12:28 | PM.IMPN ---
Progress Note: A&P Assessment and Plan (1) Cellulitis: Qualifiers: Laterality: right Site of cellulitis: extremity Site of cellulitis of extremity: lower extremity Qualified Code(s): L03.115 - Cellulitis of right lower limb Code(s): L03.90 - Cellulitis, unspecified Status: Acute Assessment and Plan: Continue Primaxin and vancomycin Continue wound care Scheduled Tylenol with p.r.n. and Dilaudid for pain 03/15 CRP increased to 17.8 and WBC to 19.2, f/u labs and clinical progress 03/15 added gabapentin 100mg qid for pain and anxiety (2) Anemia: Qualifiers: Anemia type: unspecified type Qualified Code(s): D64.9 - Anemia, unspecified Code(s): D64.9 - Anemia, unspecified Status: Acute Assessment and Plan: Likely a combination of chronic disease and blood loss from her wounds 03/14 H&H stable at 7.9 and 25.2 03/15 7.3 and 23.2 (repeat after AM 6.8 and 21.9); IV iron sucrose 300mg (3) Acute kidney injury: Code(s): N17.9 - Acute kidney failure, unspecified Status: Acute Assessment and Plan: 03/13 creatinine is 1.9 with K 5.2 and Na 127 (baseline unknown) 03/14 creatinine 1.9, K 5.5, Na 128 (likely chronic) 03/15 creatinine 1.1, K 4.5, Na 131 (4) Diabetes mellitus: Qualifiers: Diabetes mellitus complication status: with hyperglycemia Diabetes mellitus local company intermodal truck driver insulin use: without local company intermodal truck driver use Diabetes mellitus type: type 2 Qualified Code(s): E11.65 - Type 2 diabetes mellitus with hyperglycemia Code(s): E11.9 - Type 2 diabetes mellitus without complications Status: Acute Assessment and Plan: 03/14 Basal glargine 20 U Accu-Cheks AC and HS with Sliding scale insulin. 03/14 BS reviewed and well controlled (5) Anxiety: Code(s): F41.9 - Anxiety disorder, unspecified Status: Acute Assessment and Plan: As amitriptyline is relatively contraindicated due to her age, 03/14 dose reduced to 25mg at HS 03/14 tramadol stopped due to potential drug interaction with amitriptyline 03/15 added gabapentin 100mg qid for pain and anxiety (6) Chronic right hip pain: Code(s): M25.551 - Pain in right hip; G89.29 - Other chronic pain Status: Acute Assessment and Plan: 03/14 Scheduled acetaminophen, stopped tramadol, reduced amitriptyline from 25mg TID to 25mg q HS 03/15 added gabapentin 100mg qid for pain and anxiety Subjective Date/time seen: 03/15/21 12:28 Interval history: Admitted March 13 due to cellulitis of legs with open wounds 03/15 visit: Bilateral leg discomfort. Burning. Hydromorphone helps but causes sedation and the effect does not last long. Acetaminophen scheduled added 03/14 without much relief. Fatigued. Appetite fair. Denied pain elsewhere. Denied shortness of breath. Denied abnormal bleeding. Denied GI or changes. Admits hat at home she ambulates short distances with a walker and is otherwise very sedentary. Review of Systems Review of Systems: All systems reviewed & are unremarkable except as noted in HPI and below Exam Narrative: HEENT: PERRL, sclerae nonicteric, pharyngeal mucosa pink and intact NECK: No JVD CHEST: Clear to auscultation. Normal effort. HEART: NL S1/S2, regular, no murmur ABDOMEN: BS+, soft, nontender, no mass, no bruits EXTREMITIES: Erythema and venous stasis changes bilateral lower legs with warmth and tenderness and nonpitting edema. NEUROLOGIC: CN intact and symmetric to inspection. MUSCULOSKELETAL: Tone and strength symmetric. PSYCH: Alert. Oriented to person, place, and time. Objective Data Vital Signs Vital Signs: Vital Signs - 24 hr 03/14/21 14:50 03/14/21 19:06 03/15/21 03:12 Temperature 98 F 97.4 F L 96.9 F L Pulse Rate 74 98 91 Respiratory Rate 20 17 18 Blood Pressure 103/68 114/45 L 109/56 L Pulse Oximetry 98 90 93 03/15/21 08:41 03/15/21 09:00 Temperature 97.3 F L 97.7 F Pulse Rate 95 96 Respiratory Rate 18 18 Blood Pr
[2021-03-15 12:50] LABS: Hematocrit 23.2 % (37.0-47.0); Hemoglobin 7.3 g/dL (12.0-15.0)
[2021-03-15 16:44] LABS: Glucose Point of Care 126 mg/dl (65-105)
[2021-03-15] MEDS: GABAPENTIN 100 MG CAPSULE PO ×2 (16:47→20:52)
[2021-03-15] MEDS: AMITRIPTYLINE HCL 25 MG TABLET PO (20:52)
[2021-03-15] MEDS: INSULIN GLARGINE (*BKC) 100 UNITS/ML 20 UNITS SUB-Q (20:56)
[2021-03-15 21:33] LABS: Glucose Point of Care 132 mg/dl (65-105)
[2021-03-16 03:14] VITALS: BP 100/48; PULSE 81; RESP 17; TEMP 36.6; O2SAT 92
[2021-03-16] MEDS: LORazepam (*CRX) 0.5 MG TABLET PO (03:18)
[2021-03-16 05:33] LABS: Hematocrit 24.9 % (37.0-47.0); Hemoglobin 7.5 g/dL (12.0-15.0); Mean Corpuscular HGB Conc 30.1 g/dl (32-36); Mean Corpuscular Hemoglobin 24.8 pg (26-34); Mean Corpuscular Volume 82.5 fl (80-100); Mean Platelet Volume 8.3 fl (7.4-10.4); Platelet Count Result 365 k/mm3 (150-375); Red Blood Count 3.02 M/mm3 (4.2-5.4); Red Cell Distribution Width 15.5 % (11.5-14.5)
[2021-03-16 05:54] LABS: Albumin Level 2.6 g/dL (3.5-5.1); Anion Gap 5 mmol/L (8-16); Blood Urea Nitrogen 28 mg/dL (7-17); Calcium 8.2 mg/dL (8.4-10.2); Carbon Dioxide 27 mmol/L (22-30); Chloride 100 mmol/L (98-107); Estimated CRCL calculation 57 ml/min; Estimated Glomerular Filt Rate > 60; Glucose 100 mg/dL (65-110); Phosphorus 3.3 mg/dL (2.5-4.5); Potassium 3.9 mmol/L (3.4-5.0); Sodium 132 mmol/L (137-145)
[2021-03-16 06:03] LABS: CRP 11.4 mg/dL (<1.0)
[2021-03-16 06:52] LABS: IFOB Positive Control Positive; Immunochemical Fecal Occult Bl Positive (N)
[2021-03-16 08:01] LABS: Glucose Point of Care 97 mg/dl (65-105)
[2021-03-16] MEDS: ACETAMINOPHEN 500 MG TABLET 1000 MG PO ×3 (09:35→23:00)
[2021-03-16] MEDS: SILVERGEL (ELTA) 45 ML 1 APPLIC TOPICAL (09:36)
[2021-03-16] MEDS: GABAPENTIN 100 MG CAPSULE PO ×4 (09:36→20:13)
[2021-03-16] MEDS: HEPARIN SODIUM 5,000 UNITS/ML VIAL 5000 UNITS SUB-Q ×2 (09:36→20:13)
[2021-03-16 12:10] LABS: Glucose Point of Care 97 mg/dl (65-105)
--- NOTE | 2021-03-16 14:13 | P.PNIM_ITS ---
Progress Note: A&P Assessment and Plan (1) Cellulitis: Qualifiers: Laterality: right Site of cellulitis: extremity Site of cellulitis of extremity: lower extremity Qualified Code(s): L03.115 - Cellulitis of right lower limb Code(s): L03.90 - Cellulitis, unspecified Status: Acute Assessment and Plan: Bilateral lower extremities. * Continue Primaxin and vancomycin * Continue local wound care * Supportive care. Analgesics available as needed for pain * WBC and CRP improving * Left leg wound culture with growth of Pseudomonas and Staph aureus. info analyst reports this is chronic for patient * Blood cultures negative to date (2) Bilateral leg pain: Code(s): M79.604 - Pain in right leg; M79.605 - Pain in left leg Status: Acute Assessment and Plan: chronic pain of bilateral lower extremities * supportive care. Continue elevation * gabapentin 100 mg qid * outpatient vascular surgery follow-up 03/24/21 * NIKOLE reviewed; normal * Check venous doppler (3) Anemia: Qualifiers: Anemia type: unspecified type Qualified Code(s): D64.9 - Anemia, unspecified Code(s): D64.9 - Anemia, unspecified Status: Acute Assessment and Plan: Acute on chronic. * Suspect secondary to chronic disease * Acutely worsened initially felt to be due to blood loss from leg wounds but Hgb continued to decline even after wound bleeding resolved * She has required 2 units pRBC. Hgb stabilized following transfusion * Stool occult blood test positive though no obvious GI bleeding. Will proceed with GI consultation given acute anemia * Repeat H&H this afternoon to ensure remaining stable. (4) Acute kidney injury: Code(s): N17.9 - Acute kidney failure, unspecified Status: Acute Assessment and Plan: Resolved. * Creatinine 0.9 today * Continue to monitor renal function (5) Diabetes mellitus: Qualifiers: Diabetes mellitus complication status: with hyperglycemia Diabetes mellitus fci insulin use: without load dispatcher use Diabetes mellitus type: type 2 Qualified Code(s): E11.65 - Type 2 diabetes mellitus with hyperglycemia Code(s): E11.9 - Type 2 diabetes mellitus without complications Status: Acute Assessment and Plan: Blood sugars well controlled. A1c is 7.9 * continue Accu-Cheks, sliding scale insulin, hypoglycemic protocol * Lantus 20 units qHS (6) Anxiety: Code(s): F41.9 - Anxiety disorder, unspecified Status: Acute Assessment and Plan: No acute issues at this time * As amitriptyline is relatively contraindicated due to her age, 03/14 dose reduced to 25mg at HS. Follow up with PCP to consider discontinuin * 03/14 tramadol stopped due to potential drug interaction with amitriptyline * 03/15 added gabapentin 100mg qid for pain and anxiety Subjective Date/time seen: 03/16/21 14:13 Interval history: Date of service: 03/16/2021 Cristina Will is a 75-year-old female with a history of recurrent cellulitis, peripheral vascular disease, anxiety who is seen in follow-up for cellulitis. She is established with wound care for the past 3 months for maceration of the extremities. Spoke with wound RN who notes that she has had significant improvement in appearance of legs. She is now being referred to vascular surgery and has an appointment on 03/24/21. She has a habit of scratching and rubbing the legs due to pain and notes that they frequently bleed and weep serous fluid. She admits to wound RN poor complianc
--- NOTE | 2021-03-16 14:13 | PM.IMPN ---
Progress Note: A&P Assessment and Plan (1) Cellulitis: Qualifiers: Laterality: right Site of cellulitis: extremity Site of cellulitis of extremity: lower extremity Qualified Code(s): L03.115 - Cellulitis of right lower limb Code(s): L03.90 - Cellulitis, unspecified Status: Acute Assessment and Plan: Bilateral lower extremities. Continue Primaxin and vancomycin Continue local wound care Supportive care. Analgesics available as needed for pain WBC and CRP improving Left leg wound culture with growth of Pseudomonas and Staph aureus. 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 Continue elevation gabapentin 100 mg qid outpatient vascular surgery follow-up 03/24/21 NIKOLE reviewed; normal Check venous doppler (3) Anemia: Qualifiers: Anemia type: unspecified type Qualified Code(s): D64.9 - Anemia, unspecified Code(s): D64.9 - Anemia, unspecified Status: Acute Assessment and Plan: Acute on chronic. Suspect secondary to chronic disease Acutely worsened initially felt to be due to blood loss from leg wounds but Hgb continued to decline even after wound bleeding resolved She has required 2 units pRBC. Hgb stabilized following transfusion Stool occult blood test positive though no obvious GI bleeding. Will proceed with GI consultation given acute anemia Repeat H&H this afternoon to ensure remaining stable. (4) Acute kidney injury: Code(s): N17.9 - Acute kidney failure, unspecified Status: Acute Assessment and Plan: Resolved. Creatinine 0.9 today Continue to monitor renal function (5) Diabetes mellitus: Qualifiers: Diabetes mellitus complication status: with hyperglycemia Diabetes mellitus readers' advisory service librarian insulin use: without penitentiary use Diabetes mellitus type: type 2 Qualified Code(s): E11.65 - Type 2 diabetes mellitus with hyperglycemia Code(s): E11.9 - Type 2 diabetes mellitus without complications Status: Acute Assessment and Plan: Blood sugars well controlled. A1c is 7.9 continue Accu-Cheks, sliding scale insulin, hypoglycemic protocol Lantus 20 units qHS (6) Anxiety: Code(s): F41.9 - Anxiety disorder, unspecified Status: Acute Assessment and Plan: No acute issues at this time As amitriptyline is relatively contraindicated due to her age, 03/14 dose reduced to 25mg at HS. Follow up with PCP to consider discontinuin 03/14 tramadol stopped due to potential drug interaction with amitriptyline 03/15 added gabapentin 100mg qid for pain and anxiety Subjective Date/time seen: 03/16/21 14:13 Interval history: Date of service: 03/16/2021 Cristina Will is a 75-year-old female with a history of recurrent cellulitis, peripheral vascular disease, anxiety who is seen in follow-up for cellulitis. She is established with wound care for the past 3 months for maceration of the extremities. Spoke with wound RN who notes that she has had significant improvement in appearance of legs. She is now being referred to vascular surgery and has an appointment on 03/24/21. She has a habit of scratching and rubbing the legs due to pain and notes that they frequently bleed and weep serous fluid. She admits to wound RN poor compliance with regimen and states she does not follow low sodium diet or elevate extremities. Today she complains of 8/10 pain in her bilateral lower extremities. This pain affects her mobility and she does require the use of a walker. She has not had any further bleeding from her legs today. She reports regular bowel movements with brown stools. Denies melena or hematochezia. Denies hematuria. No nausea, vomiting, fever,
[2021-03-16 15:18] LABS: Hematocrit 24.9 % (37.0-47.0); Hemoglobin 7.5 g/dL (12.0-15.0)
[2021-03-16 16:40] VITALS: BP 119/58; PULSE 91; RESP 28; TEMP 36.8; O2SAT 95
[2021-03-16 16:49] LABS: Glucose Point of Care 194 mg/dl (65-105)
[2021-03-16 20:00] VITALS: PULSE 94; RESP 21; O2SAT 100
[2021-03-16] MEDS: INSULIN GLARGINE (*BKC) 100 UNITS/ML 20 UNITS SUB-Q (20:15)
[2021-03-16] MEDS: traMADol HCL (*CRX) 50 MG TABLET PO (20:17)
[2021-03-16 21:05] LABS: Hematocrit 25.1 % (37.0-47.0); Hemoglobin 7.5 g/dL (12.0-15.0)
[2021-03-16 21:33] LABS: Vancomycin Trough 10.5 ug/mL (10.0-20.0)
[2021-03-16 22:00] VITALS: BP 102/50; PULSE 94; RESP 21; TEMP 36.3; O2SAT 100
[2021-03-16 22:57] LABS: Glucose Point of Care 159 mg/dl (65-105)
[2021-03-17] MEDS: traMADol HCL (*CRX) 50 MG TABLET PO ×2 (04:20→09:55)
--- NOTE | 2021-03-17 05:35 | PC.NURSE ---
0530 ENTERED PT ROOM AT [facility] REQUEST TO PT YELLING AT [facility]. INSERTER OPERATOR INFORMED ME THAT PT WAS REFUSING TO GET UP AND USE THE RESTROOM ALSO THAT PT HAD NOT URINATED ALL NIGHT. PT YELLING STATING SHE WAS NOT GOING TO TRY TO USE THE BATHROOM AT 5AM AND SHE WOULD GO WHEN SHE FELT LIKE IT. I OFFERED THE PT THE OPTION TO USE THE BEDPAN AND SHE CONTINUED TO YELL THAT SHE WOULD GO WHEN SHE FELT LIKE IT AND TO LEAVE HER ALONE.
[2021-03-17 05:44] LABS: Hematocrit 24.8 % (37.0-47.0); Hemoglobin 7.4 g/dL (12.0-15.0); Mean Corpuscular HGB Conc 29.8 g/dl (32-36); Mean Corpuscular Hemoglobin 24.5 pg (26-34); Mean Corpuscular Volume 82.1 fl (80-100); Mean Platelet Volume 8.1 fl (7.4-10.4); Platelet Count Result 390 k/mm3 (150-375); Red Blood Count 3.02 M/mm3 (4.2-5.4); Red Cell Distribution Width 15.7 % (11.5-14.5); White Blood Count 10.6 K/mm3 (4.5-10.0)
[2021-03-17 05:52] LABS: CRP 6.7 mg/dL (<1.0)
[2021-03-17 05:58] LABS: Albumin Level 2.7 g/dL (3.5-5.1); Anion Gap 4 mmol/L (8-16); Blood Urea Nitrogen 18 mg/dL (7-17); Calcium 8.2 mg/dL (8.4-10.2); Carbon Dioxide 28 mmol/L (22-30); Chloride 101 mmol/L (98-107); Estimated CRCL calculation 64 ml/min; Estimated Glomerular Filt Rate > 60; Glucose 92 mg/dL (65-110); Potassium 3.7 mmol/L (3.4-5.0); Sodium 133 mmol/L (137-145)
[2021-03-17 06:00] VITALS: BP 115/64; PULSE 86; RESP 18; TEMP 36.2; O2SAT 96
[2021-03-17 08:42] LABS: Glucose Point of Care 142 mg/dl (65-105)
[2021-03-17] MEDS: ACETAMINOPHEN 500 MG TABLET 1000 MG PO (09:51)
[2021-03-17] MEDS: GABAPENTIN 100 MG CAPSULE PO ×4 (09:51→21:08)
[2021-03-17] MEDS: HEPARIN SODIUM 5,000 UNITS/ML VIAL 5000 UNITS SUB-Q ×2 (09:52→21:08)
[2021-03-17] MEDS: SILVERGEL (ELTA) 45 ML 1 APPLIC TOPICAL (09:52)
--- NOTE | 2021-03-17 11:37 | WPDGICN ---
Assessment and Plan Assessment and plan (1) Acute on chronic blood loss anemia: Code(s): D62 - Acute posthemorrhagic anemia Status: Acute Assessment and Plan: probably from recent recurrent bleeding from varicose veins but also noted occult blood in stools. She denies overt gib, no abdominal pain. Also noted that she has been taking daily nsaid's for a while. I recommended to get EGD to check if ulcers, esophagitis, etc and also colonoscopy since never had one but patient refuses, she understands that could have even colon lesion but does not want to have any endoscopic evaluation. If she changes her mind then she can contact our office. use ppi for now and avoid nsaid's if possible (2) Occult blood positive stool: Code(s): R19.5 - Other fecal abnormalities Status: Acute Assessment and Plan: no overt gib patient does not want to have scopes (3) Cellulitis: Qualifiers: Laterality: right Site of cellulitis: extremity Site of cellulitis of extremity: lower extremity Qualified Code(s): L03.115 - Cellulitis of right lower limb Code(s): L03.90 - Cellulitis, unspecified Status: Acute Assessment and Plan: on antibiotics (4) Acute kidney injury: Code(s): N17.9 - Acute kidney failure, unspecified Status: Acute Assessment and Plan: resolved (5) Bilateral edema of lower extremity: Code(s): R60.0 - Localized edema Status: Acute (6) Bilateral leg pain: Code(s): M79.604 - Pain in right leg; M79.605 - Pain in left leg Status: Acute (7) BMI greater than 40: Status: Acute GI Consult Note Consult date/time: 03/17/21 11:37 Reason for consult: acute on chronic blood loss anemia, FOBT + HPI: Cristina Will is a 75 year old female with history of peripheral artery disease, chronic venous stasis ulcers in legs, recurrent cellulitis who is established with wound care for the past 3 months for maceration of the extremities. She normally will scratch and rub her legs due to pain and recently has been having episodes of more bleeding and weeping serous fluid, in fact she was admitted 4 days ago after had more bleeding than usual and noted to have cellulitis. Hb ~ 7, received blood transfusion but denies overt gib however never had egd or colonoscopy. FOBT was positive though, she says that normally takes aleve daily for last few years because of chronic pain, no blood thinners. Denies abdominal pain, nausea, dysphagia and she has good appetite. Review of Systems Constitutional: Constitutional: Denies chills Eyes: Eyes: Reports no additional eye complaints ENT: Reports Normal hearing present Cardiovascular: Cardiovascular: Denies chest pain Respiratory: Respiratory: Denies dyspnea Gastrointestinal: Gastrointestinal: Denies abdominal pain, Denies nausea and Denies vomiting Genitourinary: Genitourinary: Denies hematuria Musculoskeletal: Comments: chronic venous stasis legs Neurologic: Denies headache(s) Psychiatric: Psychiatric: Reports no additional psychiatric complaints [facility] Past Medical History Medical History (Updated 03/17/21 @ 11:47 by Gera Perrin MD) Acute on chronic blood loss anemia Anxiety Arthritis Bilateral knee pain BMI greater than 40 Cellulitis Chronic right hip pain Claustrophobia 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
[2021-03-17 12:25] LABS: Glucose Point of Care 102 mg/dl (65-105)
[2021-03-17 13:45] VITALS: BP 116/50; PULSE 87; RESP 22; TEMP 37; O2SAT 92
--- NOTE | 2021-03-17 14:06 | P.PNIM_ITS ---
Progress Note: A&P Assessment and Plan (1) Cellulitis: Qualifiers: Laterality: right Site of cellulitis: extremity Site of cellulitis of extremity: lower extremity Qualified Code(s): L03.115 - Cellulitis of right lower limb Code(s): L03.90 - Cellulitis, unspecified Status: Acute Assessment and Plan: Bilateral lower extremities. * Left leg wound culture with growth of Pseudomonas and Staph aureus * Continue Primaxin based on susceptibilities for Pseudomonas * Discontinue Vancomycin. Transition to PO doxycycline which is appropriate based on susceptibilites for Staph aureus. * Continue local wound care * Supportive care. Analgesics available as needed for pain * WBC and CRP improving * Blood cultures negative to date (2) Bilateral leg pain: Code(s): M79.604 - Pain in right leg; M79.605 - Pain in left leg Status: Acute Assessment and Plan: chronic pain of bilateral lower extremities * supportive care. Continue elevation * gabapentin 100 mg qid * outpatient vascular surgery follow-up 03/24/21 * NIKOLE reviewed; normal * Venous doppler negative for DVT (3) Anemia: Qualifiers: Anemia type: unspecified type Qualified Code(s): D64.9 - Anemia, unspecified Code(s): D64.9 - Anemia, unspecified Status: Acute Assessment and Plan: Acute on chronic. * Suspect secondary to chronic disease * Acutely worsened initially felt to be due to blood loss from leg wounds. * She does have occult positive stools but no obvious active GI bleeding * H&H remaining stable but is low. * She has required 2 units pRBC. Hgb stabilized following transfusion * Iron stores are low. Will initiate IV iron infusions and plan to transition to PO iron supplementation daily (4) Acute kidney injury: Code(s): N17.9 - Acute kidney failure, unspecified Status: Acute Assessment and Plan: Resolved. * Creatinine 0.8 today * Continue to monitor renal function (5) Diabetes mellitus: Qualifiers: Diabetes mellitus complication status: with hyperglycemia Diabetes mellitus retirement insulin use: without petroleum terminal plant operator use Diabetes mellitus type: type 2 Qualified Code(s): E11.65 - Type 2 diabetes mellitus with hyperglycemia Code(s): E11.9 - Type 2 diabetes mellitus without complications Status: Acute Assessment and Plan: Blood sugars well controlled. A1c is 7.9 * continue Accu-Cheks, sliding scale insulin, hypoglycemic protocol * Lantus 20 units qHS (6) Anxiety: Code(s): F41.9 - Anxiety disorder, unspecified Status: Acute Assessment and Plan: No acute issues at this time * As amitriptyline is relatively contraindicated due to her age, 03/14 dose reduced to 25mg at HS. Follow up with PCP to consider discontinuing * 03/14 tramadol stopped due to potential drug interaction with amitriptyline. * 03/15 added gabapentin 100mg qid for pain and anxiety (7) Occult blood positive stool: Code(s): R19.5 - Other fecal abnormalities Status: Acute Assessment and Plan: No obvious GI bleed * She does endorse daily NSAID use * Seen in consultation by Gastroenterology * Recommended EGD, however patient refused * Avoid NSAIDs * Protonix b.i.d. * Consider outpatient EGD and colonoscopy if she changes her mind Subjective Date/time seen: 03/17/21 14:06 Interval history: Date of service: 03/17/2021 Cristina Tomas Will is a 75-year-old female with a history of recurrent cell
--- NOTE | 2021-03-17 14:06 | PM.IMPN ---
Progress Note: A&P Assessment and Plan (1) Cellulitis: Qualifiers: Laterality: right Site of cellulitis: extremity Site of cellulitis of extremity: lower extremity Qualified Code(s): L03.115 - Cellulitis of right lower limb Code(s): L03.90 - Cellulitis, unspecified Status: Acute Assessment and Plan: Bilateral lower extremities. Left leg wound culture with growth of Pseudomonas and Staph aureus Continue Primaxin based on susceptibilities for Pseudomonas Discontinue Vancomycin. Transition to PO doxycycline which is appropriate based on susceptibilites for Staph aureus. Continue local wound care Supportive care. Analgesics available as needed for pain WBC and CRP improving Blood cultures negative to date (2) Bilateral leg pain: Code(s): M79.604 - Pain in right leg; M79.605 - Pain in left leg Status: Acute Assessment and Plan: chronic pain of bilateral lower extremities supportive care. Continue elevation gabapentin 100 mg qid outpatient vascular surgery follow-up 03/24/21 NIKOLE reviewed; normal Venous doppler negative for DVT (3) Anemia: Qualifiers: Anemia type: unspecified type Qualified Code(s): D64.9 - Anemia, unspecified Code(s): D64.9 - Anemia, unspecified Status: Acute Assessment and Plan: Acute on chronic. Suspect secondary to chronic disease Acutely worsened initially felt to be due to blood loss from leg wounds. She does have occult positive stools but no obvious active GI bleeding H&H remaining stable but is low. She has required 2 units pRBC. Hgb stabilized following transfusion Iron stores are low. Will initiate IV iron infusions and plan to transition to PO iron supplementation daily (4) Acute kidney injury: Code(s): N17.9 - Acute kidney failure, unspecified Status: Acute Assessment and Plan: Resolved. Creatinine 0.8 today Continue to monitor renal function (5) Diabetes mellitus: Qualifiers: Diabetes mellitus complication status: with hyperglycemia Diabetes mellitus sales vendor insulin use: without alf use Diabetes mellitus type: type 2 Qualified Code(s): E11.65 - Type 2 diabetes mellitus with hyperglycemia Code(s): E11.9 - Type 2 diabetes mellitus without complications Status: Acute Assessment and Plan: Blood sugars well controlled. A1c is 7.9 continue Accu-Cheks, sliding scale insulin, hypoglycemic protocol Lantus 20 units qHS (6) Anxiety: Code(s): F41.9 - Anxiety disorder, unspecified Status: Acute Assessment and Plan: No acute issues at this time As amitriptyline is relatively contraindicated due to her age, 03/14 dose reduced to 25mg at HS. Follow up with PCP to consider discontinuing 03/14 tramadol stopped due to potential drug interaction with amitriptyline. 03/15 added gabapentin 100mg qid for pain and anxiety (7) Occult blood positive stool: Code(s): R19.5 - Other fecal abnormalities Status: Acute Assessment and Plan: No obvious GI bleed She does endorse daily NSAID use Seen in consultation by Gastroenterology Recommended EGD, however patient refused Avoid NSAIDs Protonix b.i.d. Consider outpatient EGD and colonoscopy if she changes her mind Subjective Date/time seen: 03/17/21 14:06 Interval history: Date of service: 03/17/2021 Cristina Will is a 75-year-old female with a history of recurrent cellulitis, peripheral vascular disease, anxiety who is seen in follow-up for cellulitis. She is doing okay today. She was upset this morning because someone came in her room at 4:00 a.m. to wake her up. She states she did not get good sleep last night. She also complains of leg pain. She says her legs are ?like raw meat.? She did say the gabapentin helped. She has not been weeping as much fluid and overall she feels that she is improving. No more bleeding from
[2021-03-17] MEDS: IRON SUCROSE COMPLEX 200 MG in SODIUM CHLORIDE 0.9% IV 50 ML 120 MG IVPB (15:05)
--- NOTE | 2021-03-17 16:45 | PC.NURSE ---
On 03/17/21, the student Gloria Lopez provided care and completed [employer] documentation on the patient. I have reviewed the student's documentation and agree with the findings.
[2021-03-17] MEDS: HYDROcodone/acetaminophen (*CRX) 5-325 MG TABLET 1 TAB PO (16:49)
[2021-03-17 16:58] LABS: Glucose Point of Care 105 mg/dl (65-105)
[2021-03-17 20:00] VITALS: PULSE 82; RESP 18; O2SAT 92
[2021-03-17] MEDS: PANTOPRAZOLE 40 MG TABLET PO (21:08)
[2021-03-17] MEDS: INSULIN GLARGINE (*BKC) 100 UNITS/ML 20 UNITS SUB-Q (21:08)
[2021-03-17] MEDS: DOXYCYCLINE HYCLATE 100 MG TABLET PO (21:08)
[2021-03-17 21:37] VITALS: BP 107/48; PULSE 82; RESP 18; TEMP 37.4; O2SAT 92
[2021-03-17 22:47] LABS: Glucose Point of Care 109 mg/dl (65-105)
[2021-03-18] VITALS (7 sets, daily range): BP systolic 85–118; BP diastolic 46–61; PULSE 78–97; RESP 16–24; TEMP 36.3–36.9; O2SAT 93–98
[2021-03-18] MEDS: ONDANSETRON INJ 4 MG/2 ML VIAL IV PUSH (03:16)
[2021-03-18] MEDS: HYDROcodone/acetaminophen (*CRX) 5-325 MG TABLET 1 TAB PO ×2 (04:02→14:04)
[2021-03-18 05:16] LABS: Hematocrit 25.6 % (37.0-47.0); Hemoglobin 7.5 g/dL (12.0-15.0); Mean Corpuscular HGB Conc 29.3 g/dl (32-36); Mean Corpuscular Hemoglobin 24.2 pg (26-34); Mean Corpuscular Volume 82.6 fl (80-100); Mean Platelet Volume 8.2 fl (7.4-10.4); Platelet Count Result 397 k/mm3 (150-375); Red Cell Distribution Width 16.5 % (11.5-14.5)
[2021-03-18 05:49] LABS: Anion Gap 7 mmol/L (8-16); Blood Urea Nitrogen 13 mg/dL (7-17); CRP 4.8 mg/dL (<1.0); Calcium 8.4 mg/dL (8.4-10.2); Carbon Dioxide 29 mmol/L (22-30); Chloride 98 mmol/L (98-107); Estimated CRCL calculation 64 ml/min; Estimated Glomerular Filt Rate > 60; Glucose 91 mg/dL (65-110); Potassium 3.8 mmol/L (3.4-5.0); Sodium 134 mmol/L (137-145)
[2021-03-18 07:58] LABS: Glucose Point of Care 115 mg/dl (65-105)
[2021-03-18] MEDS: GABAPENTIN 100 MG CAPSULE PO ×4 (09:02→21:09)
[2021-03-18] MEDS: ACETAMINOPHEN 325 MG TABLET 650 MG PO (09:02)
[2021-03-18] MEDS: HEPARIN SODIUM 5,000 UNITS/ML VIAL 5000 UNITS SUB-Q ×2 (09:03→21:09)
[2021-03-18] MEDS: SILVERGEL (ELTA) 45 ML 1 APPLIC TOPICAL (09:03)
[2021-03-18] MEDS: PANTOPRAZOLE 40 MG TABLET PO ×2 (09:03→21:09)
[2021-03-18] MEDS: DOXYCYCLINE HYCLATE 100 MG TABLET PO ×2 (09:03→21:09)
--- NOTE | 2021-03-18 10:26 | P.PNIM_ITS ---
Progress Note: A&P Assessment and Plan (1) Cellulitis: Qualifiers: Laterality: right Site of cellulitis: extremity Site of cellulitis of extremity: lower extremity Qualified Code(s): L03.115 - Cellulitis of right lower limb Code(s): L03.90 - Cellulitis, unspecified Status: Acute Assessment and Plan: Bilateral lower extremities. * Left leg wound culture with growth of Pseudomonas and Staph aureus * Continue Primaxin based on susceptibilities for Pseudomonas * Continue PO doxycycline which is appropriate based on susceptibilites for Staph aureus. * Continue local wound care * Supportive care. Analgesics available as needed for pain * WBC and CRP improved * Blood cultures negative to date (2) Bilateral leg pain: Code(s): M79.604 - Pain in right leg; M79.605 - Pain in left leg Status: Acute Assessment and Plan: chronic pain of bilateral lower extremities * supportive care. Continue elevation * gabapentin 100 mg qid * outpatient vascular surgery follow-up 03/24/21 * NIKOLE reviewed; normal * Venous doppler negative for DVT (3) Anemia: Qualifiers: Anemia type: unspecified type Qualified Code(s): D64.9 - Anemia, unspecified Code(s): D64.9 - Anemia, unspecified Status: Acute Assessment and Plan: Acute on chronic. * Suspect secondary to chronic disease * Acutely worsened initially felt to be due to blood loss from leg wounds. * She does have occult positive stools but no obvious active GI bleeding. EGD this afternoon to assess. * H&H remaining stable but is low. * She required 2 units pRBC. Hgb stabilized following transfusion * Iron stores are low. Continue IV iron infusions and plan to transition to PO iron supplementation daily (4) Acute kidney injury: Code(s): N17.9 - Acute kidney failure, unspecified Status: Acute Assessment and Plan: Resolved. * Creatinine 0.8 today * Continue to monitor renal function (5) Diabetes mellitus: Qualifiers: Diabetes mellitus complication status: with hyperglycemia Diabetes mellitus senior living insulin use: without termite treater use Diabetes mellitus type: type 2 Qualified Code(s): E11.65 - Type 2 diabetes mellitus with hyperglycemia Code(s): E11.9 - Type 2 diabetes mellitus without complications Status: Acute Assessment and Plan: New onset. A1c is 7.9. Blood sugars well controlled with fasting glucose 91 this morning. * continue Accu-Cheks, sliding scale insulin, hypoglycemic protocol * Decrease Lantus to 18 units qHS * Patient would like diabetes education and ginner evaluation (6) Anxiety: Code(s): F41.9 - Anxiety disorder, unspecified Status: Acute Assessment and Plan: No acute issues at this time * As amitriptyline is relatively contraindicated due to her age, 03/14 dose reduced to 25mg at HS. Follow up with PCP to consider discontinuing * 03/14 tramadol stopped due to potential drug interaction with amitriptyline. * 03/15 added gabapentin 100mg qid for pain and anxiety (7) Occult blood positive stool: Code(s): R19.5 - Other fecal abnormalities Status: Acute Assessment and Plan: No obvious GI bleed * She does endorse daily NSAID use * Seen in consultation by Gastroenterology * Avoid NSAIDs * Protonix b.i.d. * Plan for EGD this afternoon. She declined colonoscopy Subjective Date/time seen: 03/18/21 10:26 Interval history: Date of service: 03/17/2021
--- NOTE | 2021-03-18 10:26 | PM.IMPN ---
Progress Note: A&P Assessment and Plan (1) Cellulitis: Qualifiers: Laterality: right Site of cellulitis: extremity Site of cellulitis of extremity: lower extremity Qualified Code(s): L03.115 - Cellulitis of right lower limb Code(s): L03.90 - Cellulitis, unspecified Status: Acute Assessment and Plan: Bilateral lower extremities. Left leg wound culture with growth of Pseudomonas and Staph aureus Continue Primaxin based on susceptibilities for Pseudomonas Continue PO doxycycline which is appropriate based on susceptibilites for Staph aureus. Continue local wound care Supportive care. Analgesics available as needed for pain WBC and CRP improved Blood cultures negative to date (2) Bilateral leg pain: Code(s): M79.604 - Pain in right leg; M79.605 - Pain in left leg Status: Acute Assessment and Plan: chronic pain of bilateral lower extremities supportive care. Continue elevation gabapentin 100 mg qid outpatient vascular surgery follow-up 03/24/21 NIKOLE reviewed; normal Venous doppler negative for DVT (3) Anemia: Qualifiers: Anemia type: unspecified type Qualified Code(s): D64.9 - Anemia, unspecified Code(s): D64.9 - Anemia, unspecified Status: Acute Assessment and Plan: Acute on chronic. Suspect secondary to chronic disease Acutely worsened initially felt to be due to blood loss from leg wounds. She does have occult positive stools but no obvious active GI bleeding. EGD this afternoon to assess. H&H remaining stable but is low. She required 2 units pRBC. Hgb stabilized following transfusion Iron stores are low. Continue IV iron infusions and plan to transition to PO iron supplementation daily (4) Acute kidney injury: Code(s): N17.9 - Acute kidney failure, unspecified Status: Acute Assessment and Plan: Resolved. Creatinine 0.8 today Continue to monitor renal function (5) Diabetes mellitus: Qualifiers: Diabetes mellitus complication status: with hyperglycemia Diabetes mellitus senior living insulin use: without senior living use Diabetes mellitus type: type 2 Qualified Code(s): E11.65 - Type 2 diabetes mellitus with hyperglycemia Code(s): E11.9 - Type 2 diabetes mellitus without complications Status: Acute Assessment and Plan: New onset. A1c is 7.9. Blood sugars well controlled with fasting glucose 91 this morning. continue Accu-Cheks, sliding scale insulin, hypoglycemic protocol Decrease Lantus to 18 units qHS Patient would like diabetes education and market risk specialist evaluation (6) Anxiety: Code(s): F41.9 - Anxiety disorder, unspecified Status: Acute Assessment and Plan: No acute issues at this time As amitriptyline is relatively contraindicated due to her age, 03/14 dose reduced to 25mg at . Follow up with PCP to consider discontinuing 03/14 tramadol stopped due to potential drug interaction with amitriptyline. 03/15 added gabapentin 100mg qid for pain and anxiety (7) Occult blood positive stool: Code(s): R19.5 - Other fecal abnormalities Status: Acute Assessment and Plan: No obvious GI bleed She does endorse daily NSAID use Seen in consultation by Gastroenterology Avoid NSAIDs Protonix b.i.d. Plan for EGD this afternoon. She declined colonoscopy Subjective Date/time seen: 03/18/21 10:26 Interval history: Date of service: 03/17/2021 Cristina Will is a 75-year-old female with a history of recurrent cellulitis, peripheral vascular disease, anxiety who is seen in follow-up for cellulitis. She is doing all right today. She stated last night she felt nauseous but did not have any vomiting. This morning she endorses nasal congestion and intermittent nonproductive cough. She denies fevers or chills. Denies chest pain, shortness of breath, palpitations, dizziness, lightheadedness. Last bowel moveme
[2021-03-18 11:53] LABS: Glucose Point of Care 91 mg/dl (65-105)
--- NOTE | 2021-03-18 12:01 | WPDANESEPPF ---
Anes - Initial Pre Proc Eval Procedure: Operation Date: 03/18/21 14:30 Proposed Procedures p Esophagogastroduodenoscopy - Gera Perrin MD Date/Time: 03/18/21 12:01 Surgeon: Rena Rocha PA-C Pre Op Diagnosis: Lower extremity cellulitis Patient Data Age: 75 Gender: F Height: 1.63 m Weight: 113 kg Last Vital Signs Temp 36.9 C 03/18/21 06:00 Pulse 92 03/18/21 06:00 Resp 18 03/18/21 06:00 BP 114/53 L 03/18/21 06:00 Pulse Ox 94 03/18/21 06:00 Allergies Allergy/AdvReac Type Severity Reaction Status Date / Time No Known Allergies Allergy Verified 03/18/21 12:00 Home Medications Medication Instructions Recorded Confirmed Type amitriptyline 25 mg PO TID 03/13/21 03/18/21 History chlorthalidone 25 mg PO DAILY 03/13/21 03/18/21 History clotrimazole 1 applic TOPICAL BID 03/13/21 03/18/21 History tramadol 50 mg PO TID PRN 03/13/21 03/18/21 History Laboratory Tests 03/17/21 03/17/21 03/17/21 11:49 16:36 20:53 WBC RBC Hgb Hct MCV MCH MCHC RDW Plt Count MPV Sodium Potassium Chloride Carbon Dioxide Anion Gap BUN Creatinine Estim Creat Clear Calc Estimated GFR Glucose POC Capillary Glucose 102 mg/dl mg/dl 105 mg/dl mg/dl 109 mg/dl H mg/dl (65-105) (65-105) (65-105) Calcium C-Reactive Protein 03/18/21 03/18/21 03/18/21 04:08 04:08 07:49 WBC 12.0 K/mm3 H K/mm3 (4.5-10.0) RBC 3.10 M/mm3 L M/mm3 (4.2-5.4) Hgb 7.5 g/dL L g/dL (12.0-15.0) Hct 25.6 % L % (37.0-47.0) MCV 82.6 fl fl (80-100) MCH 24.2 pg L pg (26-34) MCHC 29.3 g/dl L g/dl (32-36) RDW 16.5 % H % (11.5-14.5) Plt Count 397 k/mm3 H k/mm3 (150-375) MPV 8.2 fl fl (7.4-10.4) Sodium 134 mmol/L L mmol/L (137-145) Potassium 3.8 mmol/L mmol/L (3.4-5.0) Chloride 98 mmol/L mmol/L (98-107) Carbon Dioxide 29 mmol/L mmol/L (22-30) Anion Gap 7 mmol/L L mmol/L (8-16) BUN 13 mg/dL D mg/dL (7-17) Creatinine 0.80 mg/dL mg/dL (0.7-1.0) Estim Creat Clear Calc 64 ml/min ml/min Estimated GFR > 60 (59 - ) Glucose 91 mg/dL mg/dL (65-110) POC Capillary Glucose 115 mg/dl H mg/dl (65-105) Calcium 8.4 mg/dL mg/dL (8.4-10.2) C-Reactive Protein 4.8 mg/dL H mg/dL (<1.0) 03/18/21 11:44 WBC RBC Hgb Hct MCV MCH MCHC RDW Plt Count MPV Sodium Potassium Chloride Carbon Dioxide Anion Gap BUN Creatinine Estim Creat Clear Calc Estimated GFR Glucose POC Capillary Glucose 91 mg/dl mg/dl (65-105) Calcium C-Reactive Protein Patient hx anesthesia problems: none Family hx anesthesia problems: none Results Review: All pre-operative results and documents have been reviewed as part of the pre-operative evaluation. 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
[2021-03-18] MEDS: LACTATED RINGERS 1,000 ML 150 ML IV CONT (12:06)
--- NOTE | 2021-03-18 12:46 | PCDIET ---
Consulted to provide diabetes management education. Attempted to provide education but pt was not in room due to a procedure. Will attempt to educate at a later time.
[2021-03-18] MEDS: IRON SUCROSE COMPLEX 200 MG in SODIUM CHLORIDE 0.9% IV 50 ML 120 MG IVPB (13:55)
[2021-03-18] MEDS: LORazepam (*CRX) 0.5 MG TABLET PO (14:04)
--- NOTE | 2021-03-18 18:51 | PC.NURSE ---
pt's daughter, Allyn, called and wants/needs to be the point of contact going forward as pt lives with her and she is the one who will be taking care of pt upon discharge. Her contact information is [phone] (home) and [phone] (cell). Allyn would also like to have a list of recommended PCP for pt to begin using upon discharge if care coordination would provide that to her. She would also like to be included in the diabetes education so that she can provide better meals/care for pt going forward.
[2021-03-18] MEDS: AMITRIPTYLINE HCL 25 MG TABLET PO (21:09)
[2021-03-18] MEDS: INSULIN GLARGINE (*BKC) 100 UNITS/ML 18 UNITS SUB-Q (21:09)
[2021-03-18 21:27] LABS: Glucose Point of Care 124 mg/dl (65-105)
[2021-03-19] MEDS: HYDROcodone/acetaminophen (*CRX) 5-325 MG TABLET 1 TAB PO ×2 (02:23→10:38)
[2021-03-19 02:49] LABS: Hematocrit 26.3 % (37.0-47.0); Hemoglobin 7.8 g/dL (12.0-15.0); Mean Corpuscular HGB Conc 29.7 g/dl (32-36); Mean Corpuscular Hemoglobin 25.3 pg (26-34); Mean Corpuscular Volume 85.4 fl (80-100); Mean Platelet Volume 7.9 fl (7.4-10.4); Platelet Count Result 335 k/mm3 (150-375); Red Blood Count 3.08 M/mm3 (4.2-5.4); Red Cell Distribution Width 17.2 % (11.5-14.5); White Blood Count 12.9 K/mm3 (4.5-10.0)
[2021-03-19 03:00] LABS: Anion Gap 3 mmol/L (8-16); Blood Urea Nitrogen 11 mg/dL (7-17); Calcium 8.4 mg/dL (8.4-10.2); Carbon Dioxide 32 mmol/L (22-30); Chloride 97 mmol/L (98-107); Estimated CRCL calculation 57 ml/min; Estimated Glomerular Filt Rate > 60; Glucose 108 mg/dL (65-110); Sodium 132 mmol/L (137-145)
[2021-03-19 03:19] LABS: Vancomycin Trough < 5.0 ug/mL (10.0-20.0)
[2021-03-19] MEDS: LORazepam (*CRX) 0.5 MG TABLET PO (04:55)
[2021-03-19 06:00] VITALS: BP 114/50; PULSE 89; RESP 20; TEMP 36.8; O2SAT 94
[2021-03-19 08:00] LABS: Glucose Point of Care 85 mg/dl (65-105)
[2021-03-19 08:30] VITALS: BP 118/50; PULSE 86; RESP 16; TEMP 37.7; O2SAT 88
[2021-03-19] MEDS: PANTOPRAZOLE 40 MG TABLET PO ×2 (08:50→18:28)
[2021-03-19] MEDS: HEPARIN SODIUM 5,000 UNITS/ML VIAL 5000 UNITS SUB-Q ×2 (08:50→20:35)
[2021-03-19] MEDS: GABAPENTIN 100 MG CAPSULE PO ×4 (08:50→20:35)
[2021-03-19] MEDS: SILVERGEL (ELTA) 45 ML 1 APPLIC TOPICAL (08:51)
--- NOTE | 2021-03-19 10:44 | PCDIET ---
Physician consult for Diabetes. See Nutritional Teaching Intervention. Spoke with URIEL Chase today recommending a diabetic diet vs regular. Thank you for the consult.
--- NOTE | 2021-03-19 11:00 | P.PNIM_ITS ---
Progress Note: A&P Assessment and Plan (1) Wound of lower extremity: Code(s): S81.809A - Unspecified open wound, unspecified lower leg, initial encounter Status: Acute Assessment and Plan: Infected wound of bilateral lower extremities, likely secondary to persistent scratching. * Left leg wound culture with growth of Pseudomonas and Staph aureus * Continue Primaxin based on susceptibilities for Pseudomonas * Change to Ancef for Staph aureus. * Continue local wound care. Appreciate wound nurse evaluation, with whom patient is established and noted to be poorly compliant with wound care at home. Home health being arranged to assist. * Supportive care. Analgesics available as needed for pain * CRP improved. Slight increase in WBC * Blood cultures negative to date (2) Bilateral leg pain: Code(s): M79.604 - Pain in right leg; M79.605 - Pain in left leg Status: Acute Assessment and Plan: chronic pain of bilateral lower extremities * supportive care. Continue elevation * gabapentin 100 mg qid * outpatient vascular surgery follow-up 03/24/21 * NIKOLE reviewed; normal * Venous doppler negative for DVT (3) Anemia: Qualifiers: Anemia type: unspecified type Qualified Code(s): D64.9 - Anemia, unspecified Code(s): D64.9 - Anemia, unspecified Status: Acute Assessment and Plan: Acute on chronic. * Suspect secondary to chronic disease * Acutely worsened initially felt to be due to blood loss from leg wounds (secondary to scratching). * H&H low but remains stable * She required 2 units pRBC. Hgb stabilized following transfusion * Iron stores are low. Continue IV iron infusions and plan to transition to PO iron supplementation daily (4) Acute kidney injury: Code(s): N17.9 - Acute kidney failure, unspecified Status: Acute Assessment and Plan: Resolved. * Creatinine 0.9 today * Continue to monitor renal function (5) Diabetes mellitus: Qualifiers: Diabetes mellitus complication status: with hyperglycemia Diabetes mellitus continuous churn buttermaker insulin use: without fci use Diabetes mellitus type: type 2 Qualified Code(s): E11.65 - Type 2 diabetes mellitus with hyperglycemia Code(s): E11.9 - Type 2 diabetes mellitus without complications Status: Acute Assessment and Plan: New onset. A1c is 7.9. Blood sugars well controlled with fasting glucose 108 this morning. * continue Accu-Cheks, sliding scale insulin, hypoglycemic protocol * Continue Lantus 18 units qHS * Patient would like diabetes education and manager of construction evaluation. Seen by manager of construction and education provided 03/19 * She would like to start metformin at discharge. She is not agreeable to starting insulin at this time. (6) Anxiety: Code(s): F41.9 - Anxiety disorder, unspecified Status: Acute Assessment and Plan: No acute issues at this time * As amitriptyline is relatively contraindicated due to her age, 03/14 dose reduced to 25mg at HS. Follow up with PCP to consider discontinuing after taper * 03/14 tramadol stopped due to potential drug interaction with amitriptyline. * 03/15 added gabapentin 100mg qid for pain and anxiety (7) Occult blood positive stool: Code(s): R19.5 - Other fecal abnormalities Status: Acute Assessment and Plan: No obvious GI bleed * She does endorse daily NSAID use * Seen in consultation by Gastroenterology * Underwent EGD 03/18/21 which showed gastritis that explains occult blood though
--- NOTE | 2021-03-19 11:00 | PM.IMPN ---
Progress Note: A&P Assessment and Plan (1) Wound of lower extremity: Code(s): S81.809A - Unspecified open wound, unspecified lower leg, initial encounter Status: Acute Assessment and Plan: Infected wound of bilateral lower extremities, likely secondary to persistent scratching. Left leg wound culture with growth of Pseudomonas and Staph aureus Continue Primaxin based on susceptibilities for Pseudomonas Change to Ancef for Staph aureus. Continue local wound care. Appreciate wound nurse evaluation, with whom patient is established and noted to be poorly compliant with wound care at home. Home health being arranged to assist. Supportive care. Analgesics available as needed for pain CRP improved. Slight increase in WBC Blood cultures negative to date (2) Bilateral leg pain: Code(s): M79.604 - Pain in right leg; M79.605 - Pain in left leg Status: Acute Assessment and Plan: chronic pain of bilateral lower extremities supportive care. Continue elevation gabapentin 100 mg qid outpatient vascular surgery follow-up 03/24/21 NIKOLE reviewed; normal Venous doppler negative for DVT (3) Anemia: Qualifiers: Anemia type: unspecified type Qualified Code(s): D64.9 - Anemia, unspecified Code(s): D64.9 - Anemia, unspecified Status: Acute Assessment and Plan: Acute on chronic. Suspect secondary to chronic disease Acutely worsened initially felt to be due to blood loss from leg wounds (secondary to scratching). H&H low but remains stable She required 2 units pRBC. Hgb stabilized following transfusion Iron stores are low. Continue IV iron infusions and plan to transition to PO iron supplementation daily (4) Acute kidney injury: Code(s): N17.9 - Acute kidney failure, unspecified Status: Acute Assessment and Plan: Resolved. Creatinine 0.9 today Continue to monitor renal function (5) Diabetes mellitus: Qualifiers: Diabetes mellitus complication status: with hyperglycemia Diabetes mellitus terminal manager insulin use: without terminal manager use Diabetes mellitus type: type 2 Qualified Code(s): E11.65 - Type 2 diabetes mellitus with hyperglycemia Code(s): E11.9 - Type 2 diabetes mellitus without complications Status: Acute Assessment and Plan: New onset. A1c is 7.9. Blood sugars well controlled with fasting glucose 108 this morning. continue Accu-Cheks, sliding scale insulin, hypoglycemic protocol Continue Lantus 18 units qHS Patient would like diabetes education and ceo & board director evaluation. Seen by ceo & board director and education provided 1/20 She would like to start metformin at discharge. She is not agreeable to starting insulin at this time. (6) Anxiety: Code(s): F41.9 - Anxiety disorder, unspecified Status: Acute Assessment and Plan: No acute issues at this time As amitriptyline is relatively contraindicated due to her age, 03/14 dose reduced to 25mg at HS. Follow up with PCP to consider discontinuing after taper 03/14 tramadol stopped due to potential drug interaction with amitriptyline. 03/15 added gabapentin 100mg qid for pain and anxiety (7) Occult blood positive stool: Code(s): R19.5 - Other fecal abnormalities Status: Acute Assessment and Plan: No obvious GI bleed She does endorse daily NSAID use Seen in consultation by Gastroenterology Underwent EGD 03/18/21 which showed gastritis that explains occult blood though no active bleeding on EGD Continue protonix BID Avoid NSAIDs Repeat EGD in 8 weeks to assess for healing. Can also have outpatient colonoscopy at that time Subjective Date/time seen: 03/19/21 11:00 Interval history: Date of service: 03/19/2021 Cristina Will is a 75-year-old female with a history of recurrent cellulitis, peripheral vascular disease, anxiety who is seen in follow-up for wound infection of the lower extremitie
[2021-03-19 11:07] VITALS: O2SAT 92
[2021-03-19 11:48] LABS: Glucose Point of Care 184 mg/dl (65-105)
[2021-03-19 14:05] VITALS: BP 106/50; PULSE 90; RESP 18; TEMP 37; O2SAT 93
--- NOTE | 2021-03-19 14:54 | WPDGIPROGNO ---
Progress Note: A&P Assessment and Plan (1) Erosive esophagitis: Code(s): K22.10 - Ulcer of esophagus without bleeding Status: Acute Assessment and Plan: found yesterday now on ppi and she can go home with protonix bid or similar, then can do EGD in 8 weeks to assess healing and also colonoscopy (if she is finally agreeable) (2) Occult blood positive stool: Code(s): R19.5 - Other fecal abnormalities Status: Acute Assessment and Plan: probably from egd findings, she will think about colonoscopy as outpatient (3) Acute on chronic blood loss anemia: Code(s): D62 - Acute posthemorrhagic anemia Status: Acute (4) Bilateral edema of lower extremity: Code(s): R60.0 - Localized edema Status: Acute (5) Cellulitis: Qualifiers: Laterality: right Site of cellulitis: extremity Site of cellulitis of extremity: lower extremity Qualified Code(s): L03.115 - Cellulitis of right lower limb Code(s): L03.90 - Cellulitis, unspecified Status: Acute (6) NSAID induced gastritis: Code(s): K29.60 - Other gastritis without bleeding; T39.395A - Adverse effect of other nonsteroidal anti-inflammatory drugs [NSAID], initial encounter Status: Acute Assessment and Plan: discussed about it and will discontinue Subjective Date/time seen: 03/19/21 14:54 Interval history: egd yesterday showed severe esophagitis and moderate erosive gastritis, she is doing well today. Review of Systems Review of Systems: All systems reviewed & are unremarkable except as noted in HPI and below Exam Const: General: comfortable and no acute distress HENMT: General nose exam: Normal nares present Eyes: Sclera: sclerae normal Neck: Neck: supple Resp: Effort & Inspection: normal respiratory effort Auscultation: clear to auscultation bilaterally Cardio: Rate: regular rate GI: Inspection: non-distended GI Palp: Yes Soft to palpation, No Tenderness to palpation present (GI) and No Guarding due to palpation present (GI) Auscultation: normal bowel sounds Skin: Other: chronic venous stasis, Legs are wrapped and dressing is clean and dry Neuro: Speech: normal speech Motor exam (neuro): Normal motor muscle tone present throughout Extrem: Other: cellulitis legs Psych: Mental Status: mental status grossly normal Objective Data Vital Signs Vital Signs: Vital Signs - 24 hr 03/18/21 21:12 03/19/21 06:00 03/19/21 08:30 Temperature 98.3 F 98.2 F 99.8 F H Pulse Rate 97 89 86 Respiratory Rate 16 20 16 Blood Pressure 90/61 L 114/50 L 118/50 L Pulse Oximetry 93 94 88 L 03/19/21 11:07 03/19/21 14:05 Temperature 98.6 F Pulse Rate 90 Respiratory Rate 18 Blood Pressure 106/50 L Pulse Oximetry 92 93 Intake/Output Intake/Output: Intake & Output 03/16/21 03/17/21 03/18/21 03/19/21 23:59 23:59 23:59 23:59 Intake Total 1420 1620 1190 1130 Output Total 1900 1050 600 Balance -480 815 432 7591 Meds/Results Medications: Active Medications Generic Name Dose Route Start Last Admin Trade Name Freq PRN Reason Stop Dose Admin Acetaminophen 650 mg 03/17/21 14:35 03/18/21 09:02 Acetaminophen 325 Mg Tablet PO 650 mg Q4H PRN Administration Pain 1-5 Hydrocodone Bitart/Acetaminophen 1 tab 03/17/21 14:34 03/19/21 10:38 Hydrocodone/Acetaminophen (*Crx) 5-325 Mg Tablet PO 1 tab Q4H PRN Administration Pain Rated 6-10 Amitriptyline HCl 25 mg 03/14/21 21:00 03/18/21 21:09 Amitriptyline Hcl 25 Mg Tablet PO 25 mg HS AL Administration Dextrose 12.5 gm 03/13/21 23:07 Dextrose 50% 25 Gm/50 Ml Syringe IV PUSH PRN PRN Hypoglycemia Protocol Ferrous Sulfate 324 mg 03/19/21 17:00 Ferrous Sulfate 324 Mg Tablet PO BIDWM AL Gabapentin 100 mg 03/15/21 17:00 03/19/21 12:45 Gabapentin 100 Mg Capsule PO 100 mg QID AL Administration Glucagon 1 mg 03/13/21 23:07 Glucagon For
--- NOTE | 2021-03-19 15:45 | PC.NURSE ---
On 03/19/21, the student, [Viviane Valentine], provided care and completed [facility] documentation on this patient. I have reviewed the student's documentation and agree with the findings.
[2021-03-19 16:49] LABS: Glucose Point of Care 176 mg/dl (65-105)
[2021-03-19] MEDS: FERROUS SULFATE 324 MG TABLET PO (17:46)
[2021-03-19 19:24] VITALS: BP 108/58; PULSE 89; RESP 17; TEMP 36.2; O2SAT 94
[2021-03-19 20:21] LABS: Glucose Point of Care 213 mg/dl (65-105)
[2021-03-19] MEDS: AMITRIPTYLINE HCL 25 MG TABLET PO (20:35)
[2021-03-19] MEDS: INSULIN GLARGINE (*BKC) 100 UNITS/ML 18 UNITS SUB-Q (20:36)
[2021-03-20 03:38] VITALS: BP 101/58; PULSE 84; RESP 16; TEMP 37.2; O2SAT 92
[2021-03-20] MEDS: LORazepam (*CRX) 0.5 MG TABLET PO (03:47)
[2021-03-20] MEDS: HYDROcodone/acetaminophen (*CRX) 5-325 MG TABLET 1 TAB PO (04:42)
[2021-03-20 05:47] LABS: Anion Gap 7 mmol/L (8-16); Blood Urea Nitrogen 14 mg/dL (7-17); Calcium 8.2 mg/dL (8.4-10.2); Carbon Dioxide 30 mmol/L (22-30); Chloride 95 mmol/L (98-107); Estimated CRCL calculation 57 ml/min; Estimated Glomerular Filt Rate > 60; Glucose 112 mg/dL (65-110); Potassium 3.9 mmol/L (3.4-5.0); Sodium 132 mmol/L (137-145)
[2021-03-20 05:51] LABS: Basophils Percent Auto 0.3 % (0.2-1.2); Eosinophils Absolute Auto 0.2 K/mm3 (0-0.3); Eosinophils Percent Auto 1.4 % (0-4.4); Hematocrit 25.8 % (37.0-47.0); Hemoglobin 7.7 g/dL (12.0-15.0); Immature Granulocyte Absolute 0.25 K/mm3 (0.00-0.031); Immature Granulocyte Percent A 1.8 % (0-0.5); Lymphocytes Absolute Auto 1.69 K/mm3 (0.9-3.2); Lymphocytes Percent Auto 12.1 % (18.3-44.2); Mean Corpuscular HGB Conc 29.8 g/dl (32-36); Mean Corpuscular Volume 83.8 fl (80-100); Mean Platelet Volume 8.3 fl (7.4-10.4); Monocytes Absolute Auto 1.7 K/mm3 (0.1-0.6); Monocytes Percent Auto 11.8 % (2.6-8.5); Neutrophils Absolute Auto 10.1 K/mm3 (1.3-6.7); Neutrophils Percent Auto 72.6 % (45.5-73.1); Nucleated Red Blood Cells Perc 0.1 % (0.0-0.2); Platelet Count Result 367 k/mm3 (150-375); Red Blood Count 3.08 M/mm3 (4.2-5.4); Red Cell Distribution Width 17.6 % (11.5-14.5)
[2021-03-20 06:48] LABS: Anisocytosis 1+ (NORMAL); Hypochromasia 1+ (NORMAL); Platelet Estimate Adequate (Adequate)
[2021-03-20 07:52] LABS: Glucose Point of Care 115 mg/dl (65-105)
[2021-03-20] MEDS: GABAPENTIN 100 MG CAPSULE PO ×3 (09:19→17:07)
[2021-03-20] MEDS: PANTOPRAZOLE 40 MG TABLET PO (09:19)
[2021-03-20] MEDS: HEPARIN SODIUM 5,000 UNITS/ML VIAL 5000 UNITS SUB-Q (09:19)
[2021-03-20] MEDS: FERROUS SULFATE 324 MG TABLET PO ×2 (09:19→17:06)
[2021-03-20] MEDS: TOLNAFTATE 1% POWDER 45 GM BTL 1 APPLIC TOPICAL (09:19)
[2021-03-20] MEDS: SILVERGEL (ELTA) 45 ML 1 APPLIC TOPICAL (09:21)
[2021-03-20 10:15] VITALS: BMI 42.7
[2021-03-20 12:06] LABS: Glucose Point of Care 148 mg/dl (65-105)
--- NOTE | 2021-03-20 13:53 | P.DS_ITS ---
DS: Admitting Diagnosis Discharge Date 03/20/2021 Admitting Diagnosis Bilateral leg wounds DS: Discharge Diagnosis Discharge Diagnosis (1) Wound of lower extremity: Code(s): S81.809A - Unspecified open wound, unspecified lower leg, initial encounter Status: Acute Assessment and Plan: Infected wound of bilateral lower extremities, likely secondary to persistent scratching. * Left leg wound culture with growth of Pseudomonas and Staph aureus * Treated with IV Primaxin based on susceptibilities for Pseudomonas. Switched to PO Levaquin on discharge based on susceptibilities to complete 10 days of antibiotic therapy. * Treated with IV Ancef for Staph aureus. Switched to PO Keflex and will complete 10 days. * Continue local wound care. Appreciate wound nurse evaluation, with whom patient is established and noted to be poorly compliant with wound care at home. Home health arranged for wound care management. * CRP improved. Slight increase in WBC although wounds improved with resolution of drainage, patient remained afebrile. * Blood cultures negative (2) Bilateral leg pain: Code(s): M79.604 - Pain in right leg; M79.605 - Pain in left leg Status: Acute Assessment and Plan: chronic pain of bilateral lower extremities * supportive care. Continue elevation * Started on gabapentin 100 mg qid * outpatient vascular surgery follow-up 03/24/21 * NIKOLE reviewed; normal * Venous doppler negative for DVT (3) Anemia: Qualifiers: Anemia type: unspecified type Qualified Code(s): D64.9 - Anemia, unspecified Code(s): D64.9 - Anemia, unspecified Status: Acute Assessment and Plan: Acute on chronic. * Suspect secondary to chronic disease * Acutely worsened initially felt to be due to blood loss from leg wounds (secondary to scratching). * She required 2 units pRBC. Hgb stabilized following transfusion * H&H was low but remained stable. * Iron stores are low. Received IV iron infusions and will continue PO iron supplementation daily (4) Acute kidney injury: Code(s): N17.9 - Acute kidney failure, unspecified Status: Acute Assessment and Plan: Resolved. (5) Diabetes mellitus: Qualifiers: Diabetes mellitus complication status: with hyperglycemia Diabetes mellitus terminal gauger insulin use: without terminal gauger use Diabetes mellitus type: type 2 Qualified Code(s): E11.65 - Type 2 diabetes mellitus with hyperglycemia Code(s): E11.9 - Type 2 diabetes mellitus without complications Status: Acute Assessment and Plan: New onset. A1c is 7.9. Blood sugars well controlled during admission * managed with Accu-Cheks, sliding scale insulin, hypoglycemic protocol. * Long acting insulin initiated during hospitalization but patient did not wish to continue with home insulin * Started on metformin 500 mg BID * Continue to monitor glucose at home and follow up with PCP in 1 week for monitoring. May need uptitration of metformin based on tolerability * Evaluated by diabetes education and cafeteria associate for education. (6) Anxiety: Code(s): F41.9 - Anxiety disorder, unspecified Status: Acute Assessment and Plan: No acute issues at this time * As amitriptyline is relatively contraindicated due to her age dose was educed to 25mg HS. Follow up with PCP to consider discontinuing after taper * Tramadol stopped due to potential drug interaction with amitriptyline. * Started on gabapentin 100mg qid for pain and anxiety (7) Occult blo
--- NOTE | 2021-03-20 13:53 | PM.DS ---
DS: Admitting Diagnosis Discharge Date 03/20/2021 Admitting Diagnosis Bilateral leg wounds DS: Discharge Diagnosis Discharge Diagnosis (1) Wound of lower extremity: Code(s): S81.809A - Unspecified open wound, unspecified lower leg, initial encounter Status: Acute Assessment and Plan: Infected wound of bilateral lower extremities, likely secondary to persistent scratching. Left leg wound culture with growth of Pseudomonas and Staph aureus Treated with IV Primaxin based on susceptibilities for Pseudomonas. Switched to PO Levaquin on discharge based on susceptibilities to complete 10 days of antibiotic therapy. Treated with IV Ancef for Staph aureus. Switched to PO Keflex and will complete 10 days. Continue local wound care. Appreciate wound nurse evaluation, with whom patient is established and noted to be poorly compliant with wound care at home. Home health arranged for wound care management. CRP improved. Slight increase in WBC although wounds improved with resolution of drainage, patient remained afebrile. Blood cultures negative (2) Bilateral leg pain: Code(s): M79.604 - Pain in right leg; M79.605 - Pain in left leg Status: Acute Assessment and Plan: chronic pain of bilateral lower extremities supportive care. Continue elevation Started on gabapentin 100 mg qid outpatient vascular surgery follow-up 03/24/21 NIKOLE reviewed; normal Venous doppler negative for DVT (3) Anemia: Qualifiers: Anemia type: unspecified type Qualified Code(s): D64.9 - Anemia, unspecified Code(s): D64.9 - Anemia, unspecified Status: Acute Assessment and Plan: Acute on chronic. Suspect secondary to chronic disease Acutely worsened initially felt to be due to blood loss from leg wounds (secondary to scratching). She required 2 units pRBC. Hgb stabilized following transfusion H&H was low but remained stable. Iron stores are low. Received IV iron infusions and will continue PO iron supplementation daily (4) Acute kidney injury: Code(s): N17.9 - Acute kidney failure, unspecified Status: Acute Assessment and Plan: Resolved. (5) Diabetes mellitus: Qualifiers: Diabetes mellitus complication status: with hyperglycemia Diabetes mellitus truck terminal manager insulin use: without truck terminal manager use Diabetes mellitus type: type 2 Qualified Code(s): E11.65 - Type 2 diabetes mellitus with hyperglycemia Code(s): E11.9 - Type 2 diabetes mellitus without complications Status: Acute Assessment and Plan: New onset. A1c is 7.9. Blood sugars well controlled during admission managed with Accu-Cheks, sliding scale insulin, hypoglycemic protocol. Long acting insulin initiated during hospitalization but patient did not wish to continue with home insulin Started on metformin 500 mg BID Continue to monitor glucose at home and follow up with PCP in 1 week for monitoring. May need uptitration of metformin based on tolerability Evaluated by diabetes education and rv service technician for education. (6) Anxiety: Code(s): F41.9 - Anxiety disorder, unspecified Status: Acute Assessment and Plan: No acute issues at this time As amitriptyline is relatively contraindicated due to her age dose was educed to 25mg HS. Follow up with PCP to consider discontinuing after taper Tramadol stopped due to potential drug interaction with amitriptyline. Started on gabapentin 100mg qid for pain and anxiety (7) Occult blood positive stool: Code(s): R19.5 - Other fecal abnormalities Status: Acute Assessment and Plan: No obvious GI bleed She endorsed daily NSAID use Seen in consultation by Gastroenterology Underwent EGD 03/18/21 which showed gastritis that explains occult blood though no active bleeding on EGD Continue protonix BID Avoid NSAIDs Repeat EGD in 8 weeks to assess for healing. Can also have outpatient col
[2021-03-20 14:00] VITALS: BP 130/58; PULSE 89; RESP 12; TEMP 37; O2SAT 97
[2021-03-20 16:30] LABS: Glucose Point of Care 146 mg/dl (65-105)
--- NOTE | 2021-03-20 18:20 | PC.NURSE ---
discharge packet gone over with pt and IV removed. Attempted to get pt dressed including having pt sit on the side of the bed and then stand and pivot to chair in anticipation of getting pt in the car to be transported home. Pt screamed in pain while getting her to sit up and sit on the side of the bed. attempted to get pt to stand for nearly 20+ minutes but pt was not able to do so. Pt was not able to lift her butt off the bed at all. Discussion was had my multiple members of the healthcare team about getting rehab, et al. but pt refused all of it and said she was content to urinate on herself and sit in it all day. An ambulance was ordered, with pt's consent, to transport pt home.
[2021-03-20 19:28] VITALS: BP 117/76; PULSE 94; RESP 17; TEMP 36.3; O2SAT 93
== END 2021-03-20 19:53 | disposition home or self-care (01) | DRG 603 ==
LOC: ANHED 20:23 → ANH2MED 20:28
PROVIDERS: Internal Medicine; Internal Medicine Gastroenterology; Nurse Practitioner; Physician Assistant; Admitting Provider Internal Medicine; Emergency Provider Emergency Medicine; PCP Family Medicine; Visit Provider Physician Assistant
PROC: 0DJ08ZZ Inspection of Upper Intestinal Tract, Via Natural or Artificial Opening Endoscopic (ICD-10-PCS; CPT 43235; principal; 2021-03-18 14:30)
DX: L03.115 Cellulitis of right lower limb (principal); N17.9 Acute kidney failure, unspecified; D62 Acute posthemorrhagic anemia; S81.802A Unspecified open wound, left lower leg, initial encounter; S81.801A Unspecified open wound, right lower leg, initial encounter; B96.5 Pseudomonas (aeruginosa) (mallei) (pseudomallei) as the cause of diseases classified elsewhere; B95.61 Methicillin susceptible Staphylococcus aureus infection as the cause of diseases classified elsewhere; M79.605 Pain in left leg; M79.604 Pain in right leg; M25.551 Pain in right hip; G89.29 Other chronic pain; K21.00 Gastro-esophageal reflux disease with esophagitis, without bleeding; K29.60 Other gastritis without bleeding; T39.395A Adverse effect of other nonsteroidal anti-inflammatory drugs [NSAID], initial encounter; R19.5 Other fecal abnormalities; I87.8 Other specified disorders of veins; E11.65 Type 2 diabetes mellitus with hyperglycemia; E11.51 Type 2 diabetes mellitus with diabetic peripheral angiopathy without gangrene; F41.9 Anxiety disorder, unspecified; Z28.21 Immunization not carried out because of patient refusal; Z87.891 Personal history of nicotine dependence; Z79.1 Long term (current) use of non-steroidal anti-inflammatories (NSAID)
CPT/HCPCS: 36415; 36430; 71045; 76775; 80048; 80053; 80069; 80202; 81001; 82274; 82607; 82728; 82746; 82948; 83036; 83540; 83550; 83605; 83615; 83735; 83880; 84443; 84550; 85014; 85018; 85025; 85027; 85046; 85610; 85652; 86140; 86850; 86900; 86901; 86920; 87040; 87070; 87077; 87081; 87186; 87205; 88305; 93306; 93923; 93970; 96361; 96365; 96366; 96367; 96375; 96376; 97110; 97162; 97166; 97530; 97535; 99285; A9270; G0378; J0131; J0690; J0743; J1170; J1644; J1756; J1815; J2270; J2405; J2704; J3370; J7030; J7050; J7120; P9016

== ENCOUNTER 2021-03-22 17:14 | Inpatient (IN) | payer MEDICARE, SELFPAY ==
[2021-03-22] VITALS (37 sets, daily range): BP systolic 78–130; BP diastolic 46–83; PULSE 92–113; RESP 14–32; O2SAT 82–100
--- NOTE | ~2021-03-22 | XR_ITS ---
EXAMINATION: XR chest 1V portable EXAM DATE: 03/25/2021 06:10 INDICATION: COVID . TECHNIQUE: Portable AP frontal chest x-ray was obtained. Comparison is made to prior examination from 03/24/2021. FINDINGS: Mild cardiomegaly. There is pulmonary vascular congestion. There is indistinct reticulation with a bibasal predominance which may indicate pulmonary edema. Superimposed ill-defined and conflue nt pneumonia also possible. There is no pneumothorax suspected. There are no pleural effusions. There is aortic arteriosclerosis. There are mild bony degenerative changes. IMPRESSION: 1. Small to moderate amount of ill-defined edema or pneumonia. Reviewed, dictated and finalized at location A. NT COORDINATOR
--- NOTE | ~2021-03-22 | US_ITS ---
EXAMINATION:US venous doppler LE BI INDICATION:Cellulitis TECHNIQUE: Multiple grayscale, color flow and Doppler images of the right and left lower extremity de ep venous systems were obtained and reviewed. COMPARISON:03/16/2021 FINDINGS: The common femoral, superficial femoral and popliteal veins demonstrate normal respiratory variation, augmentation and compressibility. Color flow is also seen within the posterior tibial, pe roneal, greater saphenous and profunda veins. IMPRESSION: 1: No lower extremity deep venous thrombosis. Reviewed, dictated and finalized at location B. T MAKER LOCKSTITCH
--- NOTE | ~2021-03-22 | XR_ITS ---
EXAMINATION: XR chest 1V portable EXAM DATE: 03/27/2021 10:53 INDICATION: covid . TECHNIQUE: Portable AP frontal chest x-ray was obtained. Comparison is made to prior examination from 03/25/2021, 03/24, 03/22. FINDINGS: Continued interval progression in small to moderate amount of right-sided, small amount of left-sided ill-defined airspace disease, probably COVID pneumonia. No sizable pleural effusion or pne umothorax. Mild cardiomegaly. IMPRESSION: Mild progression in small to moderate amount of pneumonia. Reviewed, dictated and finalized at location A. OMER COUNTER REPRESENTATIVE
--- NOTE | ~2021-03-22 | US_ITS ---
EXAMINATION: US renal BI DATE: 03/23/2021 16:19 INDICATION: Acute kidney injury. TECHNIQUE: Multiple ultrasound grayscale images of the kidneys were obtained. COMPARISON: Ultrasound kidneys 03/15/2021 FINDINGS: The right kidney measures 9.9 x 5.1 x 5.7 cm. The left kidney measures 11.0 x 5.8 x 6.1 cm. The kidne ys demonstrate normal parenchymal echogenicity. There is no hydronephrosis. The bladder is normal. IMPRESSION: 1. Normal kidneys. No hydronephrosis. Reviewed, dictated and finalized at location A. GER GROCERY
--- NOTE | ~2021-03-22 | CT_ITS ---
EXAMINATION: CT pelvis wo con DATE: 03/23/2021 15:56 INDICATION: Right hip pain. TECHNIQUE: Computed tomography (CT) of the pelvis was performed without intravenous contrast. Automat ed exposure control and iterative reconstruction technique were employed. The dose-length product was 862.11 mGy-cm. COMPARISON: Right hip radiographs 03/23/2021, right hip CT 05/01/2020 FINDINGS: There is an umbilical hernia containing fat. There is mild bilateral common iliac, external iliac, and inguinal lymphadenopathy. For example, a right inguinal lymph node measures 2.8 x 2.2 cm. There is lumbar levoscoliosis and severe spondylosis. There is advanced right hip osteoarthritis inc luding flattening of superior femoral head. There is moderate left hip osteoarthritis. There is no fr acture. IMPRESSION: 1. No fracture. 2. Advanced right hip osteoarthritis and moderate left hip osteoarthritis. 3. Chronic mild pelvic lymphadenopathy, likely reactive. Reviewed, dictated and finalized at location A. AND TROLLEY DISPATCHER
--- NOTE | ~2021-03-22 | XR_ITS ---
EXAMINATION: XR chest 1V portable DATE: 03/29/2021 10:16 INDICATION: Shortness of breath. TECHNIQUE: A single frontal view of the chest was obtained. COMPARISON: Chest single view 03/27/2021 FINDINGS: The patient is rotated to her left. There are airspace opacities in the perihilar regions b ilaterally. No pleural effusion or pneumothorax. The heart size is normal. IMPRESSION: 1. Stable airspace opacities in the perihilar regions, consistent with pulmonary edema versus pneumon ia. Reviewed, dictated and finalized at location A. E SPLITTER IMPRESSION: 1. Stable airspace opacities in the perihilar regions, consistent with pulmonar y edema versus pneumonia.
--- NOTE | ~2021-03-22 | XR_ITS ---
XR hip RT 2V w AP pelvis 03/23/2021 14:53 Indication: Severe right hip pain Procedure: 3 portable views of the right hip Comparison: 09/22/2020 Findings: The study is very limited due to patient body habitus. There is severe osteoarthritis of th e right hip with possible underlying avascular necrosis of the femoral head. There is sclerosis in th e subcapital region of the femur which may be due to osteophyte formation, although a nondisplaced fr acture is not excluded. Impression: 1: Significantly limited study due to patient body habitus. Severe osteoarthritis. Cannot exclude non displaced femoral neck fracture. Reviewed, dictated and finalized at location B. NCE ASSISTANT Impression: 1: Significantly limited study due to patient body habitus. Severe osteoarthrit is. Cannot exclude nondisplaced femoral neck fracture.
--- NOTE | ~2021-03-22 | XR_ITS ---
EXAMINATION: XR chest 1V portable DATE: 03/31/2021 12:59 INDICATION: Fever TECHNIQUE: frontal view of the chest was obtained. COMPARISON: Chest radiograph dated 03/29/2021 FINDINGS: Significant interval improvement in the prior perihilar predominant pulmonary vascular congestion lik michelle pulmonary edema. Residual opacities in the bilateral lower lung zones. No pneumothorax or definit milagro pleural effusion. Heart size is normal. IMPRESSION: 1. Opacities in the bilateral lower lung zones which could represent atelectasis, pulmonary edema, pn eumonia or some combination thereof. 2. Improvement in prior perihilar pulmonary vascular congestion and pulmonary edema. Reviewed, dictated and finalized at location A. RANCE DEFENSE ATTORNEY IMPRESSION: 1. Opacities in the bilateral lower lung zones which could represent atelectasi s, pulmonary edema, pneumonia or some combination thereof. 2. Improvement in prior perihilar pulmonary vascular congestion and pulmonary e traci.
--- NOTE | ~2021-03-22 | XR_ITS ---
EXAMINATION: XR chest 1V portable EXAM DATE: 03/24/2021 05:35 INDICATION: covid . TECHNIQUE: Portable AP frontal chest x-ray was obtained. Comparison is made to prior examination from 03/22, 03/13. FINDINGS: Small amount of ill-defined bilateral pneumonia or edema not significantly changed. No pneu mothorax or pleural effusion. The cardiomediastinal silhouette is prominent but magnified on this AP technique. There are no osseous abnormalities identified. IMPRESSION: Small amount of bilateral ill-defined pneumonia or edema, unchanged. Reviewed, dictated and finalized at location A. ARY ACQUISITIONS TECHNICIAN IMPRESSION: Small amount of bilateral ill-defined pneumonia or edema, unchanged .
--- NOTE | ~2021-03-22 | XR_ITS ---
EXAMINATION: XR chest 1V portable INDICATION: Tachycardia TECHNIQUE: Portable AP chest at 1927 hours COMPARISON: 03/13/2021 FINDINGS: The lungs are free of acute opacities. There is no pleural effusion or pneumothorax. The ca rdiomediastinal silhouette is stable. IMPRESSION: 1. No acute cardiopulmonary abnormality. Reviewed, dictated and finalized at location F. TE HEALTH COACH
--- NOTE | 2021-03-22 19:20 | ECG_ITS ---
Measurements Intervals [place] Rate: 100 P: 48 SD: 148 QRS: 7 QRSD: 74 T: 49 QT: 324 QTc: 418 Interpretive Statements SINUS TACHYCARDIA VENTRICULAR PREMATURE COMPLEXES BORDERLINE T WAVE ABNORMALITY- ANTERIOR LEADS BASELINE ARTIFACT- I, II, III, AVR, AVL, AVF, V3-V6 BORDERLINE ECG Electronically Signed On 03-22-2021 20:26:30 [employer]ITATION TRUCK [employer] by Malik Dietrich D.O.
--- NOTE | 2021-03-22 19:25 | ED.GENADULT ---
HPI - General Adult General Chief complaint: Extremity Injury, Lower Stated complaint: cellulitis Time Seen by Provider: 03/22/21 17:22 History of Present Illness HPI narrative: Patient presents for evaluation of difficulty getting up out of her wheelchair. She was admitted here in on 03/13/2021 due to bleeding from a wound on her lower extremity. On presentation her hemoglobin was 6.9, sodium 127, potassium 5.5. Chest x-ray showed mild diffuse interstitial pattern. She was seen by gastroenterology. She was treated with IV antibiotics for cellulitis in the lower extremities. Wound culture grew out Pseudomonas and staph and she was treated with Primaxin and Ancef. She underwent EGD due to anemia and occult blood in stool. She was converted to Levaquin and Keflex. She was discharged 2 days ago. She states that she has been unable to get up out of her wheelchair at home. She continued to urinate on herself at home. Neither her daughter nor her son were able to get her up. Therefore she contacted EMS who brought her here for further evaluation. She reports that she was diagnosed with diabetes during her hospitalization here. She was unable to get testing strips due to the manner in which the prescription was written. Therefore she has not been checking her blood sugar at home. She has experienced chills since arriving here in the emergency department. She has experienced nausea without vomiting. She denies any fever. She reports neuropathy in lower extremities for which gabapentin has been effective. Related Data Allergies Allergy/AdvReac Type Severity Reaction Status Date / Time No Known Allergies Allergy Verified 03/22/21 17:44 Review of Systems Review of Systems: CONSTITUTIONAL: Reports chills. Denies fever EYES: Denies visual changes, redness, or discharge. ENT: Denies rhinorrhea, congestion, sore throat, or otalgia. CARDIOVASCULAR: Denies chest pain, palpitations, or edema. RESPIRATORY: Denies cough or dyspnea. GASTROINTESTINAL: Denies abdominal pain, nausea, vomiting, or diarrhea. GENITOURINARY: Denies dysuria or hematuria. SKIN: Reports redness to bilateral lower extremities. Denies rash or itching. MUSCULOSKELETAL: Reports pain in bilateral lower extremities denies back pain, joint pain NEUROLOGIC: Reports numbness, tingling, burning sensation in bilateral lower extremity. Denies headache, dizziness, or weakness. PSYCHIATRIC: Denies anxiety or depression. [facility] Past Medical History Medical History (Updated 03/22/21 @ 20:30 by ANNITA RobertsP, ) Anemia Diabetes mellitus type 2 in obese GERD (gastroesophageal reflux disease) Neuropathy Obesity Surgical History Surgical History Surgical history unknown Family History Family History Mother Family history unknown Social History Social History Substance use: never Gender identity (if verbalized by the patient): Female Sexual Orientation (if Verbalized by the Patient): Straight or Heterosexual Spiritual care concerns: No Exam Narrative: GENERAL: Appears chronically unwell but is in no distress HEAD: Normocephalic, atraumatic. EYES: PERRLA and EOMI. ENT: Nares clear, no rhinorrhea or epistaxis. Mucous membranes moist. Oropharynx without tonsillar hypertrophy exudate or other lesions. Bilateral TMs pearly mariee nonbulging NECK: Supple. No adenopathy or masses. No carotid bruits or JVD CHEST: Clear to auscultation. No respiratory distress. No wheezes rales or rhonchi HEART: Regular rate and rhythm. No murmur heard. Normal peripheral pulses. ABDOMEN: Soft, nontender, nondistended, normal active bowel sounds. EXTREMITIES: Normal range of motion. No edema. SKIN: Erythema extending from lower abdomen into bilateral inguinal folds and gluteal folds. There is marke
[2021-03-22 19:32] LABS: Basophils Percent Auto 0.2 % (0.2-1.2); Eosinophils Absolute Auto 0.3 K/mm3 (0-0.3); Eosinophils Percent Auto 2.5 % (0-4.4); Hematocrit 31.5 % (37.0-47.0); Hemoglobin 9.2 g/dL (12.0-15.0); Immature Granulocyte Absolute 0.11 K/mm3 (0.00-0.031); Immature Granulocyte Percent A 0.8 % (0-0.5); Lymphocytes Absolute Auto 0.78 K/mm3 (0.9-3.2); Mean Corpuscular HGB Conc 29.2 g/dl (32-36); Mean Corpuscular Hemoglobin 24.6 pg (26-34); Mean Corpuscular Volume 84.2 fl (80-100); Mean Platelet Volume 8.3 fl (7.4-10.4); Monocytes Absolute Auto 0.7 K/mm3 (0.1-0.6); Monocytes Percent Auto 5.1 % (2.6-8.5); Neutrophils Absolute Auto 11.1 K/mm3 (1.3-6.7); Neutrophils Percent Auto 85.4 % (45.5-73.1); Platelet Count Result 463 k/mm3 (150-375); Red Blood Count 3.74 M/mm3 (4.2-5.4); Red Cell Distribution Width 17.9 % (11.5-14.5)
[2021-03-22 19:42] LABS: Add Urine Microscopic? YES; Appearance Urine Cloudy (Clear); Bacteria Urine Trace /hpf; Bilirubin Urine Negative (Negative); Blood Urine 2+ (Negative); Budding Yeast Urine Present /hpf; Color Urine Yellow (Yellow); Glucose Urine UA Negative (Negative); Ketones Urine Negative (Negative); Leukocyte Esterase Ur 2+ LEU/UL (Negative); Mucus Urine Rare /lpf; Nitrate Urine Negative (Negative); Protein Urine 1+ mg/dL (Negative); Squamous Epithelial Cell Urine Moderate /hpf (Few); Urobilinogen Urine Negative mg/dL (<2.0)
[2021-03-22 19:43] LABS: Lactic Acid Reflex 1.9 mmol/L (0.7-2.1)
[2021-03-22 19:43] LABS: Alanine Aminotransferase 15 U/L (4-35); Albumin Level 3.4 g/dL (3.5-5.1); Alkaline Phosphatase 92 U/L (38-126); Anion Gap 9 mmol/L (8-16); Aspartate Amino Transferase 29 U/L (14-36); Bilirubin,Total 0.3 mg/dL (0.2-1.3); Blood Urea Nitrogen 18 mg/dL (7-17); Carbon Dioxide 30 mmol/L (22-30); Chloride 94 mmol/L (98-107); Creatine Kinase 41 U/L (30-135); Estimated Glomerular Filt Rate > 60; Glucose 137 mg/dL (65-110); Potassium 4.3 mmol/L (3.4-5.0); Sodium 133 mmol/L (137-145)
--- NOTE | 2021-03-22 19:50 | PC.NURSE ---
Per report, pt d/c from hospital to home recently. lives with grown children. pt arrived in heavily urine-soaked depend and with saturated gauze dressings to BLE. Extensive cellulitis. Dressings removed and chux pads placed underneath. Pt has another chart under her nickname (Cristina). Appears anxious and per chart review, refused to get up to restroom with [employer] tech. Spoke with this pt about possible rehab placement prior to d/c, which pt agrees to 'talk to someone after my medical issues are dealt with'. On compliance monitor.
[2021-03-22 19:54] LABS: Troponin I < 0.012 ng/mL (0.000-0.034)
[2021-03-22] MEDS: HYDROcodone/acetaminophen (*CRX) 5-325 MG TABLET 2 TAB PO (20:03)
[2021-03-22] MEDS: GABAPENTIN 100 MG CAPSULE PO (20:03)
[2021-03-22 20:08] LABS: Platelet Estimate Increased (Adequate)
[2021-03-22 20:09] LABS: Anisocytosis 2+ (NORMAL); Hypochromasia 1+ (NORMAL)
[2021-03-22 20:18] LABS: SARS-CoV-2 RNA PCR Positive
--- NOTE | 2021-03-22 20:20 | PM.IMHP ---
H&P: HPI History of Present Illness Date/Time: 03/22/21 20:20 Chief Complaint: Weakness Narrative: This is a 75-year-old female with past medical history significant for morbid obesity, hypertension, type 2 diabetes mellitus, peripheral venous insufficiency. Patient was just recently discharged after admission for bilateral lower extremity cellulitis patient released home on antibiotics however patient comes back due to weakness unable to get up from her wheelchair being confined to the wheelchair for the last few days laying in her own urine and bilateral lower extremity worsening pain and swelling tenderness and redness with blisters formation and oozing serous fluid. At the time of my visit patient was extremely uncomfortable in a lot of pain with movement of her legs. She denies any fevers, any rigors, any chills, any cough, sputum production, shortness of breath. Preliminary workup has been essentially nonrevealing. Patient is been admitted for further evaluation management and treatment. Review of Systems Review of Systems: Weakness, confinement to wheelchair, worsening bilateral lower extremity redness swelling and pain. Constitutional: Constitutional: Denies chills, Denies fever(s), Denies night sweats and Reports weakness Eyes: Eyes: Denies change in vision ENT: Denies dysphagia, Denies vertigo, Denies dizziness, Denies nasal congestion, Denies nasal discharge, Denies nasal obstruction and Denies odynophagia Cardiovascular: Cardiovascular: Reports pedal edema, Reports leg edema, Denies lightheadedness, Denies radiating jaw, neck or arm pain, Denies palpitations, Denies dyspnea and Denies dyspnea on exertion Respiratory: Respiratory: Denies cough, Denies excessive phlegm production, Denies dyspnea and Denies wheezing Gastrointestinal: Gastrointestinal: Denies abdominal pain, Denies dyspepsia, Denies heartburn, Denies diarrhea, Denies nausea and Denies vomiting Genitourinary: Genitourinary: Denies dysuria Musculoskeletal: Musculoskeletal: Reports muscle weakness Integumentary/Breasts: Skin/Breast: Reports swelling, Reports erythema, Reports rash (Abdominal skin folds and groin area), Reports skin ulcer and Reports sores Comments: Bilateral lower extremity venous stasis dermatitis Neurologic: Denies focal weakness, Denies Sensory deficit (Neuro) and Reports paresthesias Psychiatric: Psychiatric: Reports no additional psychiatric complaints and Reports as per HPI Endocrine: Endocrine: Denies cold intolerance, Denies heat intolerance, Denies polydipsia and Denies palpitations Hematologic/Lymphatic: Hematologic/Lymphatic: Reports no additional hematologic/lymphatic complaints and Reports as per HPI Allergic/Immunologic: Allergic/Immunologic: Reports no additional allergic/immunologic complaints and Reports as per HPI [facility] Past Medical History Medical History (Updated 03/22/21 @ 20:30 by Frank Moon, KAILA, ) Anemia Diabetes mellitus type 2 in obese GERD (gastroesophageal reflux disease) Neuropathy Obesity Surgical History Surgical History Surgical history unknown Family History Family History Mother Family history unknown Social History Social History Substance use: never Gender identity (if verbalized by the patient): Female Sexual Orientation (if Verbalized by the Patient): Straight or Heterosexual Spiritual care concerns: No Meds Home Medications and Allergies Allergies Allergy/AdvReac Type Severity Reaction Status Date / Time No Known Allergies Allergy Verified 03/22/21 17:44 Vital Signs Vital Signs - 24 hr 03/22/21 17:39 03/22/21 17:45 03/22/21 18:02 Pulse Rate 95 94 93 Respiratory Rate 32 H 20 26 H Blood Pressure 126/83 Pulse Oximetry 100 03/22/21 18:04 03/22/21 18:21 03/22/21 18:31
--- NOTE | 2021-03-22 20:33 | PC.NURSE ---
Patient has 2 charts that need to be merged. Old charting is [id number] .
--- NOTE | 2021-03-22 23:07 | PC.NURSE ---
Pt intermittently sobbing and then quiet. she continues to c/o BLE pain. This RN has offered to reposition pt multiple times with pillows, towels, and blankets. Pt unable to get to position of comfort, except to state that she wants to lean her legs against the rails'. Pt given her cell phone to notify family, and gave permission for this RN to call her son, which this RN did. Offered to reposition pt again, provided distraction, education. Continues to moan/yell but is not open to suggestions given by this RN.
[2021-03-22 23:12] LABS: Troponin I 0.014 ng/mL (0.000-0.034)
[2021-03-23] VITALS (26 sets, daily range): BP systolic 91–116; BP diastolic 49–103; PULSE 87–106; RESP 17–24; TEMP 36.6–36.7; O2SAT 91–100; BMI 47.1
[2021-03-23] MEDS: HYDROmorphone HCL INJ (*CRX) 1 MG/ML SYR 0.5 MG IV PUSH (02:09)
--- NOTE | 2021-03-23 03:09 | PC.NURSE ---
Pt given pain meds as ordered at approx 0210. Quiet for approx. 10 minutes. Pt then began to moan continuously again and is currently tearful. Refuses any and all attempts by this RN to reposition her. Attempted to educate her regarding shifting her weight in bed. Adamantly refusing to do so. will continue to monitor.
[2021-03-23 06:16] LABS: Basophils Percent Auto 0.3 % (0.2-1.2); Eosinophils Absolute Auto 0.3 K/mm3 (0-0.3); Eosinophils Percent Auto 3.6 % (0-4.4); Hematocrit 26.2 % (37.0-47.0); Hemoglobin 7.8 g/dL (12.0-15.0); Immature Granulocyte Absolute 0.06 K/mm3 (0.00-0.031); Immature Granulocyte Percent A 0.6 % (0-0.5); Lymphocytes Absolute Auto 0.91 K/mm3 (0.9-3.2); Lymphocytes Percent Auto 9.5 % (18.3-44.2); Mean Corpuscular HGB Conc 29.8 g/dl (32-36); Mean Corpuscular Hemoglobin 24.9 pg (26-34); Mean Corpuscular Volume 83.7 fl (80-100); Mean Platelet Volume 8.4 fl (7.4-10.4); Monocytes Absolute Auto 0.8 K/mm3 (0.1-0.6); Monocytes Percent Auto 8.7 % (2.6-8.5); Neutrophils Absolute Auto 7.4 K/mm3 (1.3-6.7); Neutrophils Percent Auto 77.3 % (45.5-73.1); Platelet Count Result 394 k/mm3 (150-375); Red Blood Count 3.13 M/mm3 (4.2-5.4); Red Cell Distribution Width 18.1 % (11.5-14.5); White Blood Count 9.5 K/mm3 (4.5-10.0)
[2021-03-23 07:18] LABS: Anisocytosis 1+ (NORMAL); Hypochromasia 1+ (NORMAL); Platelet Estimate Increased (Adequate)
--- NOTE | 2021-03-23 08:15 | PC.NURSE ---
ordered pt. breakfast tray.
[2021-03-23 08:18] LABS: Alanine Aminotransferase 14 U/L (4-35); Albumin Level 2.8 g/dL (3.5-5.1); Alkaline Phosphatase 69 U/L (38-126); Anion Gap 7 mmol/L (8-16); Aspartate Amino Transferase 29 U/L (14-36); Bilirubin,Total 0.3 mg/dL (0.2-1.3); Blood Urea Nitrogen 19 mg/dL (7-17); Calcium 8.7 mg/dL (8.4-10.2); Carbon Dioxide 29 mmol/L (22-30); Chloride 95 mmol/L (98-107); Estimated Glomerular Filt Rate 44; Glucose 115 mg/dL (65-110); Potassium 4.2 mmol/L (3.4-5.0); Sodium 131 mmol/L (137-145)
[2021-03-23] MEDS: TOLNAFTATE 1% POWDER 45 GM BTL 1 APPLIC TOPICAL ×3 (09:46→21:06)
[2021-03-23] MEDS: SILVERGEL (ELTA) 45 ML 1 APPLIC TOPICAL (09:47)
--- NOTE | 2021-03-23 10:26 | PCOTNOTE ---
Order was received for Occupational Therapy, evaluation will be completed upon transfer to nursing unit. Will follow.
--- NOTE | 2021-03-23 14:08 | PM.IMPN ---
Progress Note: A&P Assessment and Plan (1) Cellulitis of both lower extremities: Code(s): L03.115 - Cellulitis of right lower limb; L03.116 - Cellulitis of left lower limb Status: Acute Assessment and Plan: Patient was hospitalized for about a week for wounds to the lower extremity, bilateral leg pain, acute kidney injury and cellulitis. Left leg wound culture grew Pseudomonas and methicillin sensitive Staph aureus. Retrieve IV Primaxin and Ancef. She was switched to Keflex and Levaquin. She was discharged home but since being at home had trouble getting out of her wheelchair. Home health was ordered but they did not able to see the patient before she returns to the emergency room for further evaluation. Here, patient was started on vancomycin and Zosyn. This may have contributed to her worsening renal function. Will check a venous Doppler. Will have Wound Care consult. It will use Eucerin cream bilaterally to the lower extremities to improve skin integrity. Adjust antibiotics. Most likely need to go to a facility after discharge. (2) COVID-19: Code(s): U07.1 - COVID-19 Status: Acute Assessment and Plan: Patient was not tested for COVID during her previous hospitalization. Patient was brought back to the emergency room for weakness and cellulitis. She has been having chills but no fever. She tested positive for COVID here. Chest x-ray was clear. She remains on room air. Will monitor closely. (3) Acute kidney injury: Code(s): N17.9 - Acute kidney failure, unspecified Status: Acute Assessment and Plan: Patient had acute kidney injury last admission but normal at baseline. Creatinine normal on admission here 0.8 but today it is 1.2. Could be related to the IV antibiotics. Consider urine retention versus ATN. Will check renal ultrasound. Consider IV fluids. Will follow for now. (4) Anemia: Qualifiers: Anemia type: unspecified type Qualified Code(s): D64.9 - Anemia, unspecified Code(s): D64.9 - Anemia, unspecified Status: Acute Assessment and Plan: Patient appears to have a chronic anemia with hemoglobin mostly in the 7 range. She was recently discharged from the hospital. Anemia workup at that time included in EGD which showed reflux esophagitis and gastritis. Iron studies probably consistent with iron deficiency despite the slightly low TIBC. B12 folate levels normal. Will continue PPI treatment. Continue iron replacement. Monitor H&H. Transfuse as necessary. (5) Diabetes mellitus: Qualifiers: Diabetes mellitus complication status: with hyperglycemia Diabetes mellitus exterminator insulin use: without chcf use Diabetes mellitus type: type 2 Qualified Code(s): E11.65 - Type 2 diabetes mellitus with hyperglycemia Code(s): E11.9 - Type 2 diabetes mellitus without complications Status: Acute Assessment and Plan: A1c 7.9 earlier this month. The patient's blood glucose was reviewed on 03/23 Glucose remains well controlled. Start AccuCheks covering with sliding scale. Hypoglycemia protocol will be available as needed. Continue to monitor. (6) Degenerative joint disease of right hip: Qualifiers: Osteoarthritis type: primary Qualified Code(s): M16.11 - Unilateral primary osteoarthritis, right hip Code(s): M16.11 - Unilateral primary osteoarthritis, right hip Status: Acute Assessment and Plan: Patient with severe hip pain. No trauma. Will check x-ray. (7) HTN (hypertension), benign: Code(s): I10 - Essential (primary) hypertension Status: Acute Assessment and Plan: Patient's blood pressure was reviewed on 03/23 Blood pressure remains well controlled. Will continue to monitor. Waiting to have home medications clarified. (8) PAD (peripheral artery disease): Code(s): I73.9 - Peripheral vascular disease, unspecified
[2021-03-23] MEDS: ONDANSETRON INJ 4 MG/2 ML VIAL IV PUSH (14:11)
--- NOTE | 2021-03-23 15:22 | PC.NURSE ---
called for nurse to nurse report. nurse will call back.
[2021-03-23] MEDS: ENOXAPARIN 40 MG/0.4 ML SYRINGE SUB-Q (16:28)
--- NOTE | 2021-03-23 18:00 | ADMGEN ---
This patient, Malinda Will, was admitted to [facility] Surg Room 315-01 at 1600. Patient/family oriented to hospital policies and general routines including ID bracelet, bed and alarms, visiting hours, pain management, procedures, bathroom and other care routines, personal items, smoking policy, room service/diet, and visiting hours. Information on how to activate the Rapid Response Team has been discussed. Patient/Family are encouraged to report perceived risks to care and to ask questions if they do not understand what they are told or what they should do.
[2021-03-23] MEDS: levoFLOXacin 500 MG/D5W 100 ML 500 MG/100 ML BAG 100 MG IVPB (18:15)
[2021-03-23] MEDS: SODIUM CHLORIDE 0.9% IV 1,000 ML 100 ML IV CONT (18:16)
[2021-03-23] MEDS: GABAPENTIN 100 MG CAPSULE PO (21:05)
[2021-03-23] MEDS: PANTOPRAZOLE 40 MG TABLET PO (21:05)
[2021-03-24] VITALS (8 sets, daily range): BP systolic 101–129; BP diastolic 49–74; PULSE 74–90; RESP 18; TEMP 36.3–37.8; O2SAT 90–100
--- NOTE | 2021-03-24 | ECHO_ITS ---
Patient Info Name: Malinda Will Age: 75 years : 1945 Gender: Female Ht: 63 in Wt: 266 lbs BSA: 2.39 m2 HR: 86 bpm BP: 101 / 53 mmHg Heart Rhythm: Sinus Rhythm Technical Quality: Fair Exam Date: 03/24/2021 4:15 PM Exam Location: [facility] Patient Status: Inpatient Admit Date: 03/24/2021 Staff Ordering Physician: Jas Jaimes MD Engineering Mathematician: Nuha Giraldo RDCS Attending Provider: Akshat Reyes MD Exam Type: CA echo doppler color flow Study Info Indications - bacteremia Complete two-dimensional, color flow and Doppler transthoracic echocardiogram is performed. Summary 1. Complete two-dimensional, color flow and Doppler transthoracic echocardiogram is performed. 2. Left ventricular chamber dimension is normal. 3. Left ventricular systolic function is hyperdynamic, estimated at >70%. 4. There is no increased left ventricular wall thickness. 5. The left ventricular diastolic function is grade II diastolic dysfunction. 6. There is no aortic valve stenosis. 7. There is trace tricuspid valve regurgitation. 8. Moderate pulmonary hypertension, estimated pulmonary arterial systolic pressure is 56 mmHg. Left Ventricle Left ventricular chamber dimension is normal. Left ventricular systolic function is hyperdynamic, estimated at >70%. There is no increased left ventricular wall thickness. The left ventricular diastolic function is grade II diastolic dysfunction. Right Ventricle Right ventricular chamber dimension is normal. Right ventricular systolic function is normal. Left Atria Left atrial chamber dimension is normal. Right Atria Right atrial chamber dimension is mildly enlarged. Aortic Valve The aortic valve is not well visualized. There is mild aortic valve sclerosis. There is no aortic valve stenosis. There is no aortic valve regurgitation. Pulmonic Valve The pulmonic valve is not well visualized. Mitral Valve The mitral valve has thickened leaflets. There is no mitral valve regurgitation. The mitral valve annulus is mildly calcified. Tricuspid Valve The tricuspid valve leaflets are normal. There is trace tricuspid valve regurgitation. Moderate pulmonary hypertension, estimated pulmonary arterial systolic pressure is 56 mmHg. Pericardium/Pleural The pericardium appears normal. There is small pericardial effusion. Inferior Vena Cava Normal inferior vena cava with >50% collapse upon inspiration consistent with normal right atrial pressure, 5 mmHg. Aorta The aortic root size at the sinus of Valsalva is normal. There is mild aortic atherosclerosis. Left Ventricular Outflow Tract Name Value Normal LVOT 2D LVOT Diameter 2.1 cm LVOT Doppler LVOT Peak Gradient 9 mmHg LVOT Mean Gradient 4 mmHg LVOT VTI 29 cm LVOT VTI/AV VTI Ratio 0.7 LVOT Stroke Volume 106 ml LVOT CO 8.5 l/min LVOT CI 3.6 l/min/m2 Pulmonic Valve
[2021-03-24 00:46] LABS: Glucose Point of Care 115 mg/dl (65-105)
[2021-03-24 07:49] LABS: Basophils Percent Auto 0.2 % (0.2-1.2); Eosinophils Absolute Auto 0.4 K/mm3 (0-0.3); Eosinophils Percent Auto 4.2 % (0-4.4); Hematocrit 24.3 % (37.0-47.0); Hemoglobin 7.1 g/dL (12.0-15.0); Immature Granulocyte Absolute 0.05 K/mm3 (0.00-0.031); Immature Granulocyte Percent A 0.6 % (0-0.5); Lymphocytes Absolute Auto 1.11 K/mm3 (0.9-3.2); Lymphocytes Percent Auto 13.5 % (18.3-44.2); Mean Corpuscular HGB Conc 29.2 g/dl (32-36); Mean Corpuscular Hemoglobin 24.9 pg (26-34); Mean Corpuscular Volume 85.3 fl (80-100); Mean Platelet Volume 8.1 fl (7.4-10.4); Monocytes Absolute Auto 0.7 K/mm3 (0.1-0.6); Monocytes Percent Auto 8.1 % (2.6-8.5); Neutrophils Percent Auto 73.4 % (45.5-73.1); Platelet Count Result 351 k/mm3 (150-375); Red Blood Count 2.85 M/mm3 (4.2-5.4); White Blood Count 8.2 K/mm3 (4.5-10.0)
[2021-03-24 08:03] LABS: Albumin Level 2.6 g/dL (3.5-5.1); Anion Gap 5 mmol/L (8-16); Blood Urea Nitrogen 16 mg/dL (7-17); Calcium 8.2 mg/dL (8.4-10.2); Carbon Dioxide 30 mmol/L (22-30); Chloride 94 mmol/L (98-107); Estimated CRCL calculation 49 ml/min; Estimated Glomerular Filt Rate 48; Glucose 118 mg/dL (65-110); Magnesium 1.7 mg/dL (1.6-2.3); Phosphorus 3.8 mg/dL (2.5-4.5); Potassium 4.2 mmol/L (3.4-5.0); Sodium 129 mmol/L (137-145)
[2021-03-24] MEDS: FERROUS SULFATE 324 MG TABLET PO ×2 (08:07→18:03)
[2021-03-24] MEDS: PANTOPRAZOLE 40 MG TABLET PO ×2 (08:08→21:07)
[2021-03-24] MEDS: GABAPENTIN 100 MG CAPSULE PO ×4 (08:08→21:07)
[2021-03-24] MEDS: EUCERIN CREAM 120 GM JAR 1 APPLIC TOPICAL ×2 (08:09→21:08)
[2021-03-24] MEDS: TOLNAFTATE 1% POWDER 45 GM BTL 1 APPLIC TOPICAL ×3 (08:09→21:00)
[2021-03-24] MEDS: SILVERGEL (ELTA) 45 ML 1 APPLIC TOPICAL (08:40)
[2021-03-24 08:49] LABS: Glucose Point of Care 110 mg/dl (65-105)
[2021-03-24 09:16] LABS: Platelet Estimate Adequate (Adequate)
[2021-03-24 09:17] LABS: Anisocytosis 2+ (NORMAL); Hypochromasia 2+ (NORMAL); Ovalocytes 1+ (NORMAL); Stomatocytes 1+ (NORMAL)
[2021-03-24] MEDS: ACETAMINOPHEN 325 MG TABLET 650 MG PO (10:57)
[2021-03-24 11:33] LABS: Glucose Point of Care 149 mg/dl (65-105)
[2021-03-24 12:21] LABS: Glucose Point of Care 138 mg/dl (65-105)
[2021-03-24] MEDS: levoFLOXacin 250 MG/D5W 50 ML 250 MG/50 ML BAG 50 MG IVPB (12:46)
[2021-03-24] MEDS: ENOXAPARIN 40 MG/0.4 ML SYRINGE SUB-Q (12:58)
--- NOTE | 2021-03-24 13:53 | PM.IMPN ---
Progress Note: A&P Assessment and Plan (1) Cellulitis of both lower extremities: Code(s): L03.115 - Cellulitis of right lower limb; L03.116 - Cellulitis of left lower limb Status: Acute Assessment and Plan: Patient was hospitalized for about a week for lower extremity wounds, acute kidney injury and cellulitis. Left leg wound culture grew Pseudomonas and methicillin sensitive Staph aureus. Treated with IV Primaxin and Vanco but changed to Ancef once cultures known. She was switched to Keflex and Levaquin for discharge. She was discharged home but since being at home had trouble getting out of her wheelchair. Here, she was felt to have persistent cellulitis. Bilat LE venous doppler negative for DVT. Patient was started on vancomycin and Zosyn (changed to Vanco and Levaquin due to MEAGHAN). Now with extensive rash. Was on Vanco at prior hospitalization. Was on levaquin at discharge as well. Now with positive BCx with Enterococcus. Not septic but felt sepsis was tempered by being on abx on admission. Source unclear but consider UTI. UCx pending. Given the rash, will change to Linezolid and Cefepime. Repeat BCx in 1-2 days. lasix to try to improve the edema. (2) Bacteremia: Code(s): R78.81 - Bacteremia Status: Acute Assessment and Plan: As above. (3) COVID-19: Code(s): U07.1 - COVID-19 Status: Acute Assessment and Plan: Patient was not tested for COVID during her previous hospitalization. Patient was brought back to the emergency room for weakness and cellulitis. She tested positive for COVID here. Chest x-ray was clear. She has remained on room air (needed 2L briefly last night). CXR today showing small to moderate amount of ill-defined edema or pneumonia. Will monitor closely. (4) Acute kidney injury: Code(s): N17.9 - Acute kidney failure, unspecified Status: Acute Assessment and Plan: Patient had acute kidney injury last admission but normal at baseline. Creatinine normal on admission at 0.8. Cr worsened could be related ATN from the bacteremia. Renal ultrasound normal. Cr stable at 1.1. Continue to follow. (5) Anemia: Qualifiers: Anemia type: unspecified type Qualified Code(s): D64.9 - Anemia, unspecified Code(s): D64.9 - Anemia, unspecified Status: Acute Assessment and Plan: Patient appears to have a chronic anemia with hemoglobin mostly in the 7 range. She was recently hospitalized with anemia workup at that time included in EGD which showed reflux esophagitis and gastritis. Iron studies probably consistent with iron deficiency despite the slightly low TIBC. B12/folate levels normal. Continue PPI treatment. Continue iron replacement. Monitor H&H. Transfuse as necessary. (6) Diabetes mellitus: Qualifiers: Diabetes mellitus complication status: with hyperglycemia Diabetes mellitus longwall headgate operator insulin use: without longwall headgate operator use Diabetes mellitus type: type 2 Qualified Code(s): E11.65 - Type 2 diabetes mellitus with hyperglycemia Code(s): E11.9 - Type 2 diabetes mellitus without complications Status: Acute Assessment and Plan: A1c 7.9 earlier this month. The patient's blood glucose was reviewed on 03/24 Glucose remains well controlled. Continue AccuCheks covering with sliding scale. Hypoglycemia protocol available as needed. Continue current treatment plan. 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 No trauma. CT of the pelvis which showed severe osteoarthritis but no fracture. Continue PT and OT. (8) HTN (hypertension), benign: Code(s): I10 - Essential (primary) hypertension Status:
[2021-03-24 16:57] LABS: Glucose Point of Care 136 mg/dl (65-105)
[2021-03-24] MEDS: FUROSEMIDE INJ 40 MG/4 ML VIAL IV PUSH (18:02)
[2021-03-24] MEDS: LINEZOLID 600 MG/300 ML 600 MG/300 ML SOLN 300 MG IVPB (21:05)
[2021-03-24 22:01] LABS: Glucose Point of Care 145 mg/dl (65-105)
[2021-03-24] MEDS: HYDROcodone/acetaminophen (*CRX) 5-325 MG TABLET 1 TAB PO (23:31)
[2021-03-25] VITALS (9 sets, daily range): BP systolic 88–110; BP diastolic 45–62; PULSE 68–89; RESP 14–18; TEMP 36.1–38.3; O2SAT 91–95
[2021-03-25] MEDS: ACETAMINOPHEN 325 MG TABLET 650 MG PO (00:44)
[2021-03-25] MEDS: diphenhydrAMINE HCl CAP 25 MG CAPSULE PO ×3 (03:30→22:18)
[2021-03-25 07:25] LABS: Basophils Percent Auto 0.2 % (0.2-1.2); Eosinophils Absolute Auto 0.4 K/mm3 (0-0.3); Eosinophils Percent Auto 4.2 % (0-4.4); Hematocrit 25.6 % (37.0-47.0); Hemoglobin 7.6 g/dL (12.0-15.0); Immature Granulocyte Absolute 0.06 K/mm3 (0.00-0.031); Immature Granulocyte Percent A 0.7 % (0-0.5); Lymphocytes Percent Auto 19.8 % (18.3-44.2); Mean Corpuscular HGB Conc 29.7 g/dl (32-36); Mean Corpuscular Hemoglobin 24.5 pg (26-34); Mean Corpuscular Volume 82.6 fl (80-100); Mean Platelet Volume 8.2 fl (7.4-10.4); Monocytes Absolute Auto 0.7 K/mm3 (0.1-0.6); Monocytes Percent Auto 8.2 % (2.6-8.5); Neutrophils Absolute Auto 5.7 K/mm3 (1.3-6.7); Neutrophils Percent Auto 66.9 % (45.5-73.1); Platelet Count Result 348 k/mm3 (150-375); White Blood Count 8.6 K/mm3 (4.5-10.0)
[2021-03-25] MEDS: FERROUS SULFATE 324 MG TABLET PO ×2 (08:29→17:43)
[2021-03-25] MEDS: FUROSEMIDE INJ 40 MG/4 ML VIAL IV PUSH (08:29)
[2021-03-25] MEDS: GABAPENTIN 100 MG CAPSULE PO ×4 (08:29→21:02)
[2021-03-25] MEDS: PANTOPRAZOLE 40 MG TABLET PO ×2 (08:30→21:01)
[2021-03-25 08:32] LABS: Glucose Point of Care 112 mg/dl (65-105)
[2021-03-25] MEDS: TOLNAFTATE 1% POWDER 45 GM BTL 1 APPLIC TOPICAL ×3 (08:38→21:01)
[2021-03-25] MEDS: SILVERGEL (ELTA) 45 ML 1 APPLIC TOPICAL (08:40)
[2021-03-25] MEDS: EUCERIN CREAM 120 GM JAR 1 APPLIC TOPICAL ×2 (08:40→17:47)
--- NOTE | 2021-03-25 09:49 | P.CDI_ITS ---
CDI Query Clarification Request -Bilateral cellulitis has been documented -Diabetes Mellitus type 2, Peripheral artery disease, and chronic venous stasis have been documented. Please clarify if there is a cause and effect relationship between the cellulitis and: * DM type 2 * Peripheral artery disease * Chronic venous stasis * Or Unable to determine <Simi Estrada RN - Last Filed: 03/25/21 09:54>
--- NOTE | 2021-03-25 09:49 | WPDCDIQUERY2 ---
CDI Query Clarification Request -Bilateral cellulitis has been documented -Diabetes Mellitus type 2, Peripheral artery disease, and chronic venous stasis have been documented. Please clarify if there is a cause and effect relationship between the cellulitis and: DM type 2 Peripheral artery disease Chronic venous stasis Or Unable to determine <Simi Estrada RN - Last Filed: 03/25/21 09:54>
[2021-03-25 10:01] LABS: Alanine Aminotransferase 14 U/L (4-35); Albumin Level 2.8 g/dL (3.5-5.1); Alkaline Phosphatase 58 U/L (38-126); Anion Gap 4 mmol/L (8-16); Aspartate Amino Transferase 27 U/L (14-36); Bilirubin,Total 0.2 mg/dL (0.2-1.3); Blood Urea Nitrogen 20 mg/dL (7-17); CRP 7.2 mg/dL (<1.0); Calcium 8.2 mg/dL (8.4-10.2); Carbon Dioxide 32 mmol/L (22-30); Chloride 95 mmol/L (98-107); Estimated CRCL calculation 45 ml/min; Estimated Glomerular Filt Rate 44; Glucose 123 mg/dL (65-110); Lactate Dehydrogenase 372 U/L (313-618); Magnesium 1.7 mg/dL (1.6-2.3); Phosphorus 4.1 mg/dL (2.5-4.5); Sodium 131 mmol/L (137-145)
[2021-03-25 11:39] LABS: Glucose Point of Care 362 mg/dl (65-105)
[2021-03-25] MEDS: HYDROcodone/acetaminophen (*CRX) 5-325 MG TABLET 1 TAB PO ×2 (12:11→22:10)
[2021-03-25] MEDS: LINEZOLID 600 MG/300 ML 600 MG/300 ML SOLN 300 MG IVPB ×2 (12:12→20:56)
[2021-03-25] MEDS: INSULIN ASPART (*BKC) 100 UNITS/ML SUB-Q (12:20)
[2021-03-25] MEDS: ENOXAPARIN 40 MG/0.4 ML SYRINGE SUB-Q (15:58)
[2021-03-25 17:22] LABS: Glucose Point of Care 111 mg/dl (65-105)
[2021-03-26 04:00] VITALS: BP 108/53; PULSE 54; RESP 20; TEMP 37.3; O2SAT 95
--- NOTE | 2021-03-26 05:11 | PCRCNOTE ---
Apnea link was applied to pt at 22:51, when pt was checked around 0150, device had been turned off. Therapist turned it back on, yet it was off again when removed at 0500. Study can be redone tonight (03/26/21) if need be.
[2021-03-26] MEDS: HYDROcodone/acetaminophen (*CRX) 5-325 MG TABLET 1 TAB PO ×3 (06:09→19:22)
[2021-03-26] MEDS: diphenhydrAMINE HCl CAP 25 MG CAPSULE PO ×3 (06:18→22:54)
[2021-03-26 08:00] VITALS: BP 104/44; PULSE 86; RESP 16; TEMP 37.4; O2SAT 93
[2021-03-26 08:19] LABS: Glucose Point of Care 131 mg/dl (65-105)
[2021-03-26] MEDS: LINEZOLID 600 MG/300 ML 600 MG/300 ML SOLN 300 MG IVPB ×2 (08:58→21:38)
[2021-03-26] MEDS: PANTOPRAZOLE 40 MG TABLET PO ×2 (08:59→22:51)
[2021-03-26] MEDS: FERROUS SULFATE 324 MG TABLET PO ×2 (08:59→16:53)
[2021-03-26] MEDS: GABAPENTIN 100 MG CAPSULE PO ×4 (08:59→22:51)
[2021-03-26] MEDS: SILVERGEL (ELTA) 45 ML 1 APPLIC TOPICAL (09:00)
[2021-03-26] MEDS: TOLNAFTATE 1% POWDER 45 GM BTL 1 APPLIC TOPICAL ×4 (09:00→22:52)
[2021-03-26] MEDS: EUCERIN CREAM 120 GM JAR 1 APPLIC TOPICAL ×2 (09:00→16:54)
[2021-03-26 11:16] LABS: Basophils Percent Auto 0.1 % (0.2-1.2); Eosinophils Absolute Auto 0.3 K/mm3 (0-0.3); Eosinophils Percent Auto 3.4 % (0-4.4); Hematocrit 26.2 % (37.0-47.0); Hemoglobin 7.6 g/dL (12.0-15.0); Immature Granulocyte Absolute 0.06 K/mm3 (0.00-0.031); Immature Granulocyte Percent A 0.7 % (0-0.5); Lymphocytes Absolute Auto 1.37 K/mm3 (0.9-3.2); Mean Corpuscular Volume 86.2 fl (80-100); Mean Platelet Volume 8.5 fl (7.4-10.4); Monocytes Absolute Auto 0.6 K/mm3 (0.1-0.6); Monocytes Percent Auto 7.1 % (2.6-8.5); Neutrophils Absolute Auto 5.8 K/mm3 (1.3-6.7); Neutrophils Percent Auto 71.7 % (45.5-73.1); Platelet Count Result 379 k/mm3 (150-375); Red Blood Count 3.04 M/mm3 (4.2-5.4); Red Cell Distribution Width 18.3 % (11.5-14.5); White Blood Count 8.1 K/mm3 (4.5-10.0)
[2021-03-26 11:36] LABS: Alanine Aminotransferase 13 U/L (4-35); Albumin Level 2.8 g/dL (3.5-5.1); Alkaline Phosphatase 58 U/L (38-126); Anion Gap 8 mmol/L (8-16); Aspartate Amino Transferase 28 U/L (14-36); Bilirubin,Total 0.2 mg/dL (0.2-1.3); Blood Urea Nitrogen 19 mg/dL (7-17); Carbon Dioxide 32 mmol/L (22-30); Chloride 89 mmol/L (98-107); Estimated CRCL calculation 45 ml/min; Estimated Glomerular Filt Rate 44; Glucose 134 mg/dL (65-110); Magnesium 1.7 mg/dL (1.6-2.3); Phosphorus 3.6 mg/dL (2.5-4.5); Potassium 3.8 mmol/L (3.4-5.0); Sodium 129 mmol/L (137-145)
[2021-03-26 12:00] VITALS: BP 108/48; PULSE 79; RESP 18; TEMP 37; O2SAT 97
[2021-03-26 12:48] LABS: Glucose Point of Care 121 mg/dl (65-105)
[2021-03-26] MEDS: ENOXAPARIN 40 MG/0.4 ML SYRINGE SUB-Q (13:01)
--- NOTE | 2021-03-26 14:33 | PM.IMPN ---
Progress Note: A&P Assessment and Plan (1) Cellulitis of both lower extremities: Code(s): L03.115 - Cellulitis of right lower limb; L03.116 - Cellulitis of left lower limb Status: Acute Assessment and Plan: Patient was hospitalized for about a week for lower extremity wounds, acute kidney injury and cellulitis. Left leg wound culture grew Pseudomonas and methicillin sensitive Staph aureus. Treated with IV Primaxin and Vanco but changed to Ancef once cultures known. She was switched to Keflex and Levaquin for discharge. She was discharged home but since being at home had trouble getting out of her wheelchair. Here, she was felt to have persistent cellulitis. Bilat LE venous doppler negative for DVT. Patient was started on vancomycin and Zosyn (changed to Vanco and Levaquin due to MEAGHAN). Now with extensive rash. Was on Vanco at prior hospitalization. Was on levaquin at discharge as well. Now with positive BCx with Enterococcus (2of2). Not septic but felt sepsis was tempered by being on abx on admission. Source unclear but consider UTI. UCx pending. Rash is fading. Will continue Linezolid and Cefepime. Repeat BCx. CODING QUESTION: CELLULITIS MOST LIKELY RELATED TO CHRONIC VENOUS STASIS. (2) Bacteremia: Code(s): R78.81 - Bacteremia Status: Acute Assessment and Plan: As above. Repeat BCx. Echo sowing EF 70% with Grade II diastolic dysfunction and moderate pulmonary HTN. Check apnea link. (3) COVID-19: Code(s): U07.1 - COVID-19 Status: Acute Assessment and Plan: Patient was not tested for COVID during her previous hospitalization. Patient was brought back to the emergency room for weakness and cellulitis. She tested positive for COVID here. Chest x-ray was clear. She has remained on room air (needed 2L briefly the other night). CXR today showing small to moderate amount of ill-defined edema or pneumonia. Will monitor closely. (4) Acute kidney injury: Code(s): N17.9 - Acute kidney failure, unspecified Status: Acute Assessment and Plan: Patient had acute kidney injury last admission but normal at baseline. Creatinine normal on admission at 0.8. Cr worsened could be related ATN from the bacteremia. Renal ultrasound normal. Cr stable at 1.2. Hold Lasix. Will follow for now. (5) Anemia: Qualifiers: Anemia type: unspecified type Qualified Code(s): D64.9 - Anemia, unspecified Code(s): D64.9 - Anemia, unspecified Status: Acute Assessment and Plan: Patient appears to have a chronic anemia with hemoglobin mostly in the 7 range. She was recently hospitalized with anemia workup at that time included in EGD which showed reflux esophagitis and gastritis. Iron studies probably consistent with iron deficiency despite the slightly low TIBC. B12/folate levels normal. Continue PPI treatment. Continue iron replacement. Monitor H&H. Transfuse as necessary. (6) Diabetes mellitus: Qualifiers: Diabetes mellitus complication status: with hyperglycemia Diabetes mellitus residential insulin use: without director business intelligence use Diabetes mellitus type: type 2 Qualified Code(s): E11.65 - Type 2 diabetes mellitus with hyperglycemia Code(s): E11.9 - Type 2 diabetes mellitus without complications Status: Acute Assessment and Plan: A1c 7.9 earlier this month. The patient's blood glucose was reviewed on 03/25 Glucose remains well controlled. Continue AccuCheks covering with sliding scale. Hypoglycemia protocol available as needed. Continue current treatment plan. 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 No trauma. CT of the pelvis which showed s
--- NOTE | 2021-03-26 15:05 | PM.IMPN ---
Progress Note: A&P Assessment and Plan (1) Cellulitis of both lower extremities: Code(s): L03.115 - Cellulitis of right lower limb; L03.116 - Cellulitis of left lower limb Status: Acute Assessment and Plan: Patient was hospitalized for about a week for lower extremity wounds, acute kidney injury and cellulitis. Left leg wound culture grew Pseudomonas and methicillin sensitive Staph aureus. Treated with IV Primaxin and Vanco but Vanco changed to Ancef once cultures known. She was switched to Keflex and Levaquin for discharge. She was discharged home but since being at home had trouble getting out of her wheelchair. Here, she was felt to have persistent cellulitis. Bilat LE venous doppler negative for DVT. Patient was started on vancomycin and Zosyn (changed to Vanco and Levaquin due to MEAGHAN). Now with positive BCx with Enterococcus faecalis (1of2) and Coag negative Staph (2of2). Source unclear but consider skin vs contaminant given that ECONOMIC DEVELOPER in the culture as well. Repeat BCx NGTD. WBC normal but CRP 7 (could be related to COVID). UCx growing Anita albicans felt contaminant. Rash is improved. Will continue Linezolid and Cefepime for now. (2) Bacteremia: Code(s): R78.81 - Bacteremia Status: Acute Assessment and Plan: As above. Repeat BCx. Echo sowing EF 70% with Grade II diastolic dysfunction and moderate pulmonary HTN but no obvious vegetations. Could not tolerate Apnea link. Repeat BCx NGTD. (3) COVID-19: Code(s): U07.1 - COVID-19 Status: Acute Assessment and Plan: Patient was not tested for COVID during her previous hospitalization. Patient was brought back to the emergency room for weakness and cellulitis. She tested positive for COVID here. Chest x-ray was clear. She has remained on room air (needed 2L briefly the other night). CXR yesterday showing small to moderate amount of ill-defined edema or pneumonia. Will monitor closely. (4) Acute kidney injury: Code(s): N17.9 - Acute kidney failure, unspecified Status: Acute Assessment and Plan: Patient had acute kidney injury last admission but normal at baseline. Creatinine normal on admission at 0.8. Cr worsened could be related ATN from the bacteremia. Renal ultrasound normal. Cr stable at 1.2 today. Will follow for now. (5) Anemia: Qualifiers: Anemia type: unspecified type Qualified Code(s): D64.9 - Anemia, unspecified Code(s): D64.9 - Anemia, unspecified Status: Acute Assessment and Plan: Patient appears to have a chronic anemia with hemoglobin mostly in the 7 range. She was recently hospitalized with anemia workup at that time included in EGD which showed reflux esophagitis and gastritis. Iron studies probably consistent with iron deficiency despite the slightly low TIBC. B12/folate levels normal. Continue PPI treatment. Continue iron replacement. Monitor H&H. Transfuse as necessary. (6) Hyponatremia: Code(s): E87.1 - Hypo-osmolality and hyponatremia Status: Acute Assessment and Plan: She appears to have a chronic hyponatremia ranging from 127-134. Elavil stopped. Na 129 today. Will check urine studies. (7) Diabetes mellitus: Qualifiers: Diabetes mellitus complication status: with hyperglycemia Diabetes mellitus long wall mining machine tender insulin use: without long wall mining machine tender use Diabetes mellitus type: type 2 Qualified Code(s): E11.65 - Type 2 diabetes mellitus with hyperglycemia Code(s): E11.9 - Type 2 diabetes mellitus without complications Status: Acute Assessment and Plan: A1c 7.9 earlier this month. The patient's blood glucose was reviewed on 03/26 Glucose remains well controlled except 360 yesterday. Continue AccuCheks covering with sliding scale. Hypoglycemia protocol available as needed. Continue to follow. (8) Degenerative joint disease of right hip: Qualifiers: Osteoarthritis type: primary Qualif
[2021-03-26 16:00] VITALS: BP 94/56; PULSE 91; RESP 16; TEMP 36.6; O2SAT 92
[2021-03-26 17:14] LABS: Glucose Point of Care 98 mg/dl (65-105)
[2021-03-26 20:00] VITALS: BP 93/47; PULSE 81; RESP 18; TEMP 36.8; O2SAT 94
[2021-03-26 23:00] LABS: Glucose Point of Care 136 mg/dl (65-105)
[2021-03-27] VITALS (8 sets, daily range): BP systolic 100–150; BP diastolic 48–79; PULSE 71–103; RESP 16–20; TEMP 36.2–37.2; O2SAT 90–100
[2021-03-27] MEDS: HYDROcodone/acetaminophen (*CRX) 5-325 MG TABLET 1 TAB PO ×2 (03:47→11:03)
[2021-03-27 04:38] LABS: Creatinine Urine 138.4 mg/dL
[2021-03-27 05:06] LABS: Sodium Urine Random < 5 meq/L
[2021-03-27 07:53] LABS: Hematocrit 25.7 % (37.0-47.0); Hemoglobin 7.6 g/dL (12.0-15.0); Mean Corpuscular HGB Conc 29.6 g/dl (32-36); Mean Corpuscular Hemoglobin 24.9 pg (26-34); Mean Corpuscular Volume 84.3 fl (80-100); Mean Platelet Volume 8.5 fl (7.4-10.4); Platelet Count Result 361 k/mm3 (150-375); Red Blood Count 3.05 M/mm3 (4.2-5.4); Red Cell Distribution Width 18.2 % (11.5-14.5); White Blood Count 7.9 K/mm3 (4.5-10.0)
[2021-03-27 08:16] LABS: Glucose Point of Care 106 mg/dl (65-105)
[2021-03-27 08:23] LABS: Anion Gap 5 mmol/L (8-16); Blood Urea Nitrogen 19 mg/dL (7-17); Carbon Dioxide 29 mmol/L (22-30); Chloride 93 mmol/L (98-107); Estimated CRCL calculation 45 ml/min; Estimated Glomerular Filt Rate 44; Glucose 110 mg/dL (65-110); Potassium 4.1 mmol/L (3.4-5.0); Sodium 127 mmol/L (137-145)
[2021-03-27] MEDS: LINEZOLID 600 MG/300 ML 600 MG/300 ML SOLN 300 MG IVPB ×2 (09:03→21:26)
[2021-03-27] MEDS: PANTOPRAZOLE 40 MG TABLET PO ×2 (09:03→21:52)
[2021-03-27] MEDS: FERROUS SULFATE 324 MG TABLET PO ×2 (09:03→16:20)
[2021-03-27] MEDS: GABAPENTIN 100 MG CAPSULE PO ×4 (09:03→21:52)
[2021-03-27] MEDS: SODIUM CHLORIDE 0.9% IV 1,000 ML 100 ML IV CONT (11:03)
--- NOTE | 2021-03-27 11:59 | PM.IMPN ---
Progress Note: A&P Assessment and Plan (1) Cellulitis of both lower extremities: Code(s): L03.115 - Cellulitis of right lower limb; L03.116 - Cellulitis of left lower limb Status: Acute Assessment and Plan: Patient was hospitalized for about a week for lower extremity wounds, acute kidney injury and cellulitis. Left leg wound culture grew Pseudomonas and methicillin sensitive Staph aureus. Treated with IV Primaxin and Vanco but Vanco changed to Ancef once cultures known. She was switched to Keflex and Levaquin for discharge. She was discharged home but since being at home had trouble getting out of her wheelchair. Here, she was felt to have persistent cellulitis. Bilat LE venous doppler negative for DVT. Patient was started on vancomycin and Zosyn (changed to Vanco and Levaquin due to MEAGHAN). Now with positive BCx with Enterococcus faecalis (1of2) and Coag negative Staph (2of2). She developed a rash so abx changed to Linezolid and Cefepime. Source unclear but consider skin vs contaminant. Repeat BCx NGTD. WBC normal but CRP 7 (could be related to COVID). UCx growing Anita albicans felt contaminant. Rash improved. .ill continue Linezolid and Cefepime for now. (2) Bacteremia: Code(s): R78.81 - Bacteremia Status: Acute Assessment and Plan: As above. Repeat BCx NGTD. Echo sowing EF 70% with Grade II diastolic dysfunction and moderate pulmonary HTN but no obvious vegetations. (3) COVID-19: Code(s): U07.1 - COVID-19 Status: Acute Assessment and Plan: Patient was not tested for COVID during her previous hospitalization. Patient was brought back to the emergency room for weakness and cellulitis. She tested positive for COVID here. Chest x-ray was clear. She has remained on room air (needed 2L briefly). CXR today showing progression of the small to moderate amount of pneumonia. She is on/off O2. She is 92% off O2 with progression of her CXR findings. Will proceed with Dexamethasone. Will monitor closely. (4) Acute kidney injury: Code(s): N17.9 - Acute kidney failure, unspecified Status: Acute Assessment and Plan: Patient had acute kidney injury last admission but normal at baseline. Creatinine normal on admission at 0.8. Cr worsened could be related ATN from the bacteremia. Renal ultrasound normal. Cr stable at 1.2 today. Will follow for now. (5) Anemia: Qualifiers: Anemia type: unspecified type Qualified Code(s): D64.9 - Anemia, unspecified Code(s): D64.9 - Anemia, unspecified Status: Acute Assessment and Plan: Patient appears to have a chronic anemia with hemoglobin mostly in the 7 range. She was recently hospitalized with anemia workup at that time included in EGD which showed reflux esophagitis and gastritis. Iron studies probably consistent with iron deficiency despite the slightly low TIBC. B12/folate levels normal. Continue PPI treatment. Continue iron replacement. Monitor H&H. Transfuse as necessary. (6) Hyponatremia: Code(s): E87.1 - Hypo-osmolality and hyponatremia Status: Acute Assessment and Plan: She appears to have a chronic hyponatremia ranging from 127-134. Elavil stopped. Na 127 today with Anthony<5 anf UCr 138 and FENa 0.03%. Start IV fluids x 500mL. Follow. (7) Diabetes mellitus: Qualifiers: Diabetes mellitus complication status: with hyperglycemia Diabetes mellitus roasterman insulin use: without roasterman use Diabetes mellitus type: type 2 Qualified Code(s): E11.65 - Type 2 diabetes mellitus with hyperglycemia Code(s): E11.9 - Type 2 diabetes mellitus without complications Status: Acute Assessment and Plan: A1c 7.9 earlier this month. The patient's blood glucose was reviewed on 03/27 Glucose remains well controlled except 360 yesterday. Continue AccuCheks covering with sliding scale. Hypoglycemia protocol available as needed. Continue to follow. (
[2021-03-27 12:17] LABS: Glucose Point of Care 128 mg/dl (65-105)
[2021-03-27] MEDS: SILVERGEL (ELTA) 45 ML 1 APPLIC TOPICAL (12:47)
[2021-03-27] MEDS: EUCERIN CREAM 120 GM JAR 1 APPLIC TOPICAL ×2 (12:49→16:21)
[2021-03-27] MEDS: TOLNAFTATE 1% POWDER 45 GM BTL 1 APPLIC TOPICAL ×2 (12:50→21:53)
[2021-03-27] MEDS: diphenhydrAMINE HCl CAP 25 MG CAPSULE PO (13:09)
[2021-03-27] MEDS: ENOXAPARIN 40 MG/0.4 ML SYRINGE SUB-Q (13:10)
--- NOTE | 2021-03-27 16:58 | PCPTNOTE ---
PT attempted 2 x this A.M., however patient with OT. PT will continue to follow per plan of care.
[2021-03-27] MEDS: INSULIN ASPART (*BKC) 100 UNITS/ML SUB-Q (18:31)
[2021-03-27 18:32] LABS: Glucose Point of Care 208 mg/dl (65-105)
[2021-03-27 23:50] LABS: Glucose Point of Care 170 mg/dl (65-105)
[2021-03-28] VITALS (7 sets, daily range): BP systolic 100–122; BP diastolic 57–84; PULSE 62–93; RESP 14–21; TEMP 36.2–36.6; O2SAT 90–97
[2021-03-28 06:47] LABS: Basophils Percent Auto 0.3 % (0.2-1.2); Hematocrit 25.4 % (37.0-47.0); Hemoglobin 7.6 g/dL (12.0-15.0); Immature Granulocyte Absolute 0.05 K/mm3 (0.00-0.031); Immature Granulocyte Percent A 1.4 % (0-0.5); Lymphocytes Absolute Auto 1.05 K/mm3 (0.9-3.2); Mean Corpuscular HGB Conc 29.9 g/dl (32-36); Mean Corpuscular Hemoglobin 24.9 pg (26-34); Mean Corpuscular Volume 83.3 fl (80-100); Mean Platelet Volume 8.2 fl (7.4-10.4); Monocytes Absolute Auto 0.4 K/mm3 (0.1-0.6); Monocytes Percent Auto 10.9 % (2.6-8.5); Neutrophils Percent Auto 57.4 % (45.5-73.1); Platelet Count Result 353 k/mm3 (150-375); Red Blood Count 3.05 M/mm3 (4.2-5.4); Red Cell Distribution Width 18.1 % (11.5-14.5); White Blood Count 3.5 K/mm3 (4.5-10.0)
[2021-03-28 07:06] LABS: Alanine Aminotransferase 21 U/L (4-35); Albumin Level 2.9 g/dL (3.5-5.1); Alkaline Phosphatase 60 U/L (38-126); Anion Gap 2 mmol/L (8-16); Aspartate Amino Transferase 46 U/L (14-36); Bilirubin,Total 0.3 mg/dL (0.2-1.3); Blood Urea Nitrogen 17 mg/dL (7-17); CRP 7.6 mg/dL (<1.0); Calcium 8.2 mg/dL (8.4-10.2); Carbon Dioxide 33 mmol/L (22-30); Chloride 93 mmol/L (98-107); Estimated CRCL calculation 53 ml/min; Estimated Glomerular Filt Rate 54; Glucose 141 mg/dL (65-110); Lactate Dehydrogenase 518 U/L (313-618); Magnesium 1.8 mg/dL (1.6-2.3); Phosphorus 3.3 mg/dL (2.5-4.5); Potassium 4.1 mmol/L (3.4-5.0); Sodium 128 mmol/L (137-145)
[2021-03-28 07:25] LABS: Platelet Estimate Adequate (Adequate)
[2021-03-28 07:26] LABS: Anisocytosis 2+ (NORMAL); Ovalocytes 1+ (NORMAL)
[2021-03-28 08:12] LABS: Glucose Point of Care 136 mg/dl (65-105)
[2021-03-28] MEDS: LINEZOLID 600 MG/300 ML 600 MG/300 ML SOLN 300 MG IVPB ×2 (08:17→20:09)
[2021-03-28] MEDS: PANTOPRAZOLE 40 MG TABLET PO ×2 (08:18→20:09)
[2021-03-28] MEDS: FERROUS SULFATE 324 MG TABLET PO ×2 (08:18→16:28)
[2021-03-28] MEDS: GABAPENTIN 100 MG CAPSULE PO ×4 (08:18→20:09)
--- NOTE | 2021-03-28 08:53 | PCSTNOTE ---
Addendum entered by Hema Victor MS/TAB CARD PRESS OPERATOR-CCC 03/28/21 12:58: entered in error/disregard Original Note: Therapist did not attempt bedside today as nursing reports she is not alert and is unable to swallow anything at this point. Will attempt when patient is more alert and able to swallow.
[2021-03-28 11:36] LABS: Glucose Point of Care 166 mg/dl (65-105)
[2021-03-28] MEDS: SILVERGEL (ELTA) 45 ML 1 APPLIC TOPICAL (12:50)
[2021-03-28] MEDS: EUCERIN CREAM 120 GM JAR 1 APPLIC TOPICAL ×2 (12:50→16:29)
[2021-03-28] MEDS: TOLNAFTATE 1% POWDER 45 GM BTL 1 APPLIC TOPICAL ×3 (12:50→20:09)
[2021-03-28] MEDS: HYDROcodone/acetaminophen (*CRX) 5-325 MG TABLET 1 TAB PO (12:51)
[2021-03-28] MEDS: ENOXAPARIN 40 MG/0.4 ML SYRINGE SUB-Q (12:51)
--- NOTE | 2021-03-28 14:25 | PM.IMPN ---
Progress Note: A&P Assessment and Plan (1) Cellulitis of both lower extremities: Code(s): L03.115 - Cellulitis of right lower limb; L03.116 - Cellulitis of left lower limb Status: Acute Assessment and Plan: Patient was hospitalized for about a week for lower extremity wounds, acute kidney injury and cellulitis. Left leg wound culture grew Pseudomonas and methicillin sensitive Staph aureus. Treated with IV Primaxin and Vanco but Vanco changed to Ancef once cultures known. She was switched to Keflex and Levaquin for discharge. She was discharged home but since being at home had trouble getting out of her wheelchair. Here, she was felt to have persistent cellulitis. Bilat LE venous doppler negative for DVT. Patient was started on vancomycin and Zosyn (changed to Vanco and Levaquin due to MEAGHAN). Now with positive BCx with Enterococcus faecalis (1of2) and Coag negative Staph (2of2). She developed a rash so abx changed to Linezolid and Cefepime. Source unclear but consider skin vs contaminant. Repeat BCx NGTD. WBC normal but CRP 7 (could be related to COVID). UCx growing Anita albicans felt contaminant. Rash improved. will continue Linezolid and Cefepime for now. (2) Bacteremia: Code(s): R78.81 - Bacteremia Status: Acute Assessment and Plan: As above. Repeat BCx NGTD. Echo sowing EF 70% with Grade II diastolic dysfunction and moderate pulmonary HTN but no obvious vegetations. (3) COVID-19: Code(s): U07.1 - COVID-19 Status: Acute Assessment and Plan: Patient was not tested for COVID during her previous hospitalization. Patient was brought back to the emergency room for weakness and cellulitis. She tested positive for COVID here. Chest x-ray was clear. She has remained on room air (needed 2L briefly). CXR today showing progression of the small to moderate amount of pneumonia. She is on/off O2. She is 92% off O2 with progression of her CXR findings. Will proceed with Dexamethasone. Will monitor closely. (4) Acute kidney injury: Code(s): N17.9 - Acute kidney failure, unspecified Status: Acute Assessment and Plan: Patient had acute kidney injury last admission but normal at baseline. Creatinine normal on admission at 0.8. Cr worsened could be related ATN from the bacteremia. Renal ultrasound normal. Cr stable (5) Anemia: Code(s): D64.9 - Anemia, unspecified Status: Acute Assessment and Plan: Patient appears to have a chronic anemia with hemoglobin mostly in the 7 range. She was recently hospitalized with anemia workup at that time included in EGD which showed reflux esophagitis and gastritis. Iron studies probably consistent with iron deficiency despite the slightly low TIBC. B12/folate levels normal. Continue PPI treatment. Continue iron replacement. Monitor H&H. Transfuse as necessary. agent is stable today (6) Hyponatremia: Code(s): E87.1 - Hypo-osmolality and hyponatremia Status: Acute Assessment and Plan: She appears to have a chronic hyponatremia ranging from 127-134. Elavil stopped. Na 128. with Anthony<5 anf UCr 138 and FENa 0.03%. Slightly improved with Na Cl infusion given yesterday. Recheck and monitor if lower will add sodium chloride tablets instead to lower amount of volume given. (7) Diabetes mellitus: Qualifiers: Diabetes mellitus complication status: with hyperglycemia Diabetes mellitus moth exterminator insulin use: without moth exterminator use Diabetes mellitus type: type 2 Qualified Code(s): E11.65 - Type 2 diabetes mellitus with hyperglycemia Code(s): E11.9 - Type 2 diabetes mellitus without complications Status: Acute Assessment and Plan: A1c 7.9 earlier this month. The patient's blood glucose was reviewed on 03/27 Accu-Cheks at goal continue to monitor Continue AccuCheks covering with sliding scale. Hypoglycemia protocol available as needed. Continue to follow. (8) Degenerative joint disease of r
--- NOTE | 2021-03-28 14:54 | PCSTNOTE ---
Please refer to the Bedside Swallow Evaluation in the EMR. Please note, silent aspiration cannot be ruled out at bedside. Recommend soft and bite size, level 6 and thin liquids due to poor dentition.
[2021-03-28 16:03] LABS: Glucose Point of Care 181 mg/dl (65-105)
[2021-03-28 21:32] LABS: Glucose Point of Care 223 mg/dl (65-105)
[2021-03-29] VITALS (10 sets, daily range): BP systolic 106–130; BP diastolic 52–69; PULSE 62–82; RESP 16–20; TEMP 36.2–36.6; O2SAT 91–98
[2021-03-29] MEDS: diphenhydrAMINE HCl CAP 25 MG CAPSULE PO (00:13)
[2021-03-29 07:55] LABS: Basophils Percent Auto 0.2 % (0.2-1.2); Eosinophils Percent Auto 0.3 % (0-4.4); Hematocrit 27.9 % (37.0-47.0); Immature Granulocyte Absolute 0.07 K/mm3 (0.00-0.031); Immature Granulocyte Percent A 1.2 % (0-0.5); Lymphocytes Absolute Auto 1.26 K/mm3 (0.9-3.2); Lymphocytes Percent Auto 21.7 % (18.3-44.2); Mean Corpuscular HGB Conc 28.7 g/dl (32-36); Mean Corpuscular Hemoglobin 24.6 pg (26-34); Mean Corpuscular Volume 85.8 fl (80-100); Mean Platelet Volume 8.2 fl (7.4-10.4); Monocytes Absolute Auto 0.5 K/mm3 (0.1-0.6); Monocytes Percent Auto 7.9 % (2.6-8.5); Neutrophils Percent Auto 68.7 % (45.5-73.1); Platelet Count Result 393 k/mm3 (150-375); Red Blood Count 3.25 M/mm3 (4.2-5.4); Red Cell Distribution Width 18.1 % (11.5-14.5); White Blood Count 5.8 K/mm3 (4.5-10.0)
[2021-03-29 08:19] LABS: Alanine Aminotransferase 23 U/L (4-35); Alkaline Phosphatase 57 U/L (38-126); Anion Gap 1 mmol/L (8-16); Aspartate Amino Transferase 40 U/L (14-36); Bilirubin,Total 0.3 mg/dL (0.2-1.3); Blood Urea Nitrogen 17 mg/dL (7-17); Calcium 8.5 mg/dL (8.4-10.2); Carbon Dioxide 34 mmol/L (22-30); Chloride 96 mmol/L (98-107); Estimated CRCL calculation 53 ml/min; Estimated Glomerular Filt Rate 54; Glucose 105 mg/dL (65-110); Magnesium 1.8 mg/dL (1.6-2.3); Potassium 4.4 mmol/L (3.4-5.0); Sodium 131 mmol/L (137-145)
[2021-03-29] MEDS: PANTOPRAZOLE 40 MG TABLET PO ×2 (08:39→22:51)
[2021-03-29] MEDS: GABAPENTIN 100 MG CAPSULE PO ×4 (08:39→22:50)
[2021-03-29] MEDS: FERROUS SULFATE 324 MG TABLET PO ×2 (08:39→16:46)
[2021-03-29] MEDS: LINEZOLID 600 MG/300 ML 600 MG/300 ML SOLN 300 MG IVPB (08:39)
[2021-03-29] MEDS: EUCERIN CREAM 120 GM JAR 1 APPLIC TOPICAL ×2 (08:40→16:46)
[2021-03-29] MEDS: SILVERGEL (ELTA) 45 ML 1 APPLIC TOPICAL (08:40)
[2021-03-29] MEDS: TOLNAFTATE 1% POWDER 45 GM BTL 1 APPLIC TOPICAL ×2 (08:40)
[2021-03-29 08:58] LABS: Glucose Point of Care 122 mg/dl (65-105)
[2021-03-29 09:31] LABS: Platelet Estimate Adequate (Adequate)
[2021-03-29 09:32] LABS: Anisocytosis 1+ (NORMAL); Hypochromasia 2+ (NORMAL); Ovalocytes 1+ (NORMAL); Tear Drop Cells 1+ (NORMAL)
[2021-03-29] MEDS: ALBUTEROL SULFATE (*SP) AEROSOL 1 PUFF 2 PUFF INHALATION ×3 (10:29→22:05)
[2021-03-29 10:40] LABS: Alanine Aminotransferase 21 U/L (4-35); Estimated CRCL calculation 59 ml/min; Estimated Glomerular Filt Rate > 60
[2021-03-29 10:48] LABS: INR 1.1; Prothrombin Time 13.9 Seconds (11.1-14.7)
--- NOTE | 2021-03-29 11:12 | PCOTNOTE ---
Attempted to see patient this am, however patient sleeping upon entering. Pt declined therapy at this time stating, I had a bad night last night. I coughed all night. I just want to take a snooze.
[2021-03-29] MEDS: REMDESIVIR 200 MG/NS 250 ML 200 MG/250 ML BAG 250 MG IVPB (11:52)
[2021-03-29 12:16] LABS: Glucose Point of Care 162 mg/dl (65-105)
[2021-03-29] MEDS: ENOXAPARIN 40 MG/0.4 ML SYRINGE SUB-Q (14:07)
[2021-03-29] MEDS: HYDROcodone/acetaminophen (*CRX) 5-325 MG TABLET 1 TAB PO (14:07)
[2021-03-29 16:33] LABS: Glucose Point of Care 198 mg/dl (65-105)
--- NOTE | 2021-03-29 16:48 | PM.IMPN ---
Progress Note: A&P Assessment and Plan (1) Cellulitis of both lower extremities: Code(s): L03.115 - Cellulitis of right lower limb; L03.116 - Cellulitis of left lower limb Status: Acute Assessment and Plan: Patient was hospitalized for about a week for lower extremity wounds, acute kidney injury and cellulitis. Left leg wound culture grew Pseudomonas and methicillin sensitive Staph aureus. Treated with IV Primaxin and Vanco but Vanco changed to Ancef once cultures known. She was switched to Keflex and Levaquin for discharge. She was discharged home but since being at home had trouble getting out of her wheelchair. Here, she was felt to have persistent cellulitis. Bilat LE venous doppler negative for DVT. Patient was started on vancomycin and Zosyn (changed to Vanco and Levaquin due to MEAGHAN). Now with positive BCx with Enterococcus faecalis (1of2) and Coag negative Staph (2of2). She developed a rash so abx changed to Linezolid and Cefepime. Source unclear but consider skin vs contaminant. Repeat BCx NGTD. WBC normal but CRP 7 (could be related to COVID). UCx growing Anita albicans felt contaminant. Rash improved. will continue Linezolid and Cefepime for now. (2) Bacteremia: Code(s): R78.81 - Bacteremia Status: Acute Assessment and Plan: As above. Repeat BCx NGTD. Echo sowing EF 70% with Grade II diastolic dysfunction and moderate pulmonary HTN but no obvious vegetations. (3) COVID-19: Code(s): U07.1 - COVID-19 Status: Acute Assessment and Plan: Patient was not tested for COVID during her previous hospitalization. Patient was brought back to the emergency room for weakness and cellulitis. She tested positive for COVID here. Chest x-ray was clear. She has remained on room air (needed 2L briefly). CXR today showing progression of the small to moderate amount of pneumonia. She is on/off O2. She is 92% off O2 with progression of her CXR findings. Will proceed with Dexamethasone. Will monitor closely. 03/29/2021 worsening shortness of breath associated with COVID-19. Chest x-ray reviewed and noted below with your specific past Cities in the perihilar region consistent with pulmonary edema versus pneumonia. Will also start her on remdesivir along with Decadron for COVID-19 pneumonia (4) Acute kidney injury: Code(s): N17.9 - Acute kidney failure, unspecified Status: Acute Assessment and Plan: Patient had acute kidney injury last admission but normal at baseline. Creatinine normal on admission at 0.8. Cr worsened could be related ATN from the bacteremia. Renal ultrasound normal. Cr stable (5) Anemia: Code(s): D64.9 - Anemia, unspecified Status: Acute Assessment and Plan: Patient appears to have a chronic anemia with hemoglobin mostly in the 7 range. She was recently hospitalized with anemia workup at that time included in EGD which showed reflux esophagitis and gastritis. Iron studies probably consistent with iron deficiency despite the slightly low TIBC. B12/folate levels normal. Continue PPI treatment. Continue iron replacement. Monitor H&H. Transfuse as necessary. agent is stable today (6) Hyponatremia: Code(s): E87.1 - Hypo-osmolality and hyponatremia Status: Acute Assessment and Plan: She appears to have a chronic hyponatremia ranging from 127-134. Elavil stopped. Na 128. with Anthony<5 anf UCr 138 and FENa 0.03%. Slightly improved with Na Cl infusion given yesterday. Recheck and monitor if lower will add sodium chloride tablets instead to lower amount of volume given. (7) Diabetes mellitus: Qualifiers: Diabetes mellitus complication status: with hyperglycemia Diabetes mellitus terminal makeup operator insulin use: without skilled nursing use Diabetes mellitus type: type 2 Qualified Code(s): E11.65 - Type 2 diabetes mellitus with hyperglycemia Code(s): E11.9 - Type 2 diabetes mellitus without complications Status: Acute
[2021-03-29] MEDS: FUROSEMIDE INJ 40 MG/4 ML VIAL IV PUSH (17:05)
[2021-03-29 17:47] LABS: NT Pro B Type Natriuretic Pept 2220 pg/mL (5-100)
[2021-03-29 23:35] LABS: Glucose Point of Care 141 mg/dl (65-105)
[2021-03-30] VITALS (8 sets, daily range): BP systolic 106–130; BP diastolic 60–79; PULSE 68–80; RESP 16–20; TEMP 36.6–37.9; O2SAT 90–99
[2021-03-30] MEDS: LINEZOLID 600 MG/300 ML 600 MG/300 ML SOLN 300 MG IVPB ×3 (06:44→23:07)
[2021-03-30] MEDS: TOLNAFTATE 1% POWDER 45 GM BTL 1 APPLIC TOPICAL ×4 (06:45→23:03)
[2021-03-30] MEDS: HYDROcodone/acetaminophen (*CRX) 5-325 MG TABLET 1 TAB PO (07:22)
[2021-03-30 07:49] LABS: Basophils Percent Auto 0.2 % (0.2-1.2); Eosinophils Percent Auto 0.2 % (0-4.4); Hematocrit 27.6 % (37.0-47.0); Hemoglobin 7.9 g/dL (12.0-15.0); Immature Granulocyte Absolute 0.05 K/mm3 (0.00-0.031); Immature Granulocyte Percent A 1.2 % (0-0.5); Lymphocytes Absolute Auto 1.14 K/mm3 (0.9-3.2); Lymphocytes Percent Auto 27.3 % (18.3-44.2); Mean Corpuscular HGB Conc 28.6 g/dl (32-36); Mean Corpuscular Hemoglobin 24.5 pg (26-34); Mean Corpuscular Volume 85.4 fl (80-100); Mean Platelet Volume 7.9 fl (7.4-10.4); Monocytes Absolute Auto 0.5 K/mm3 (0.1-0.6); Monocytes Percent Auto 10.8 % (2.6-8.5); Neutrophils Absolute Auto 2.5 K/mm3 (1.3-6.7); Neutrophils Percent Auto 60.3 % (45.5-73.1); Platelet Count Result 323 k/mm3 (150-375); Red Blood Count 3.23 M/mm3 (4.2-5.4); Red Cell Distribution Width 18.4 % (11.5-14.5); White Blood Count 4.2 K/mm3 (4.5-10.0)
[2021-03-30 07:57] LABS: Glucose Point of Care 83 mg/dl (65-105)
[2021-03-30 08:03] LABS: Alanine Aminotransferase 20 U/L (4-35); Alkaline Phosphatase 58 U/L (38-126); Anion Gap 1 mmol/L (8-16); Aspartate Amino Transferase 35 U/L (14-36); Bilirubin,Total 0.2 mg/dL (0.2-1.3); Blood Urea Nitrogen 16 mg/dL (7-17); CRP 4.2 mg/dL (<1.0); Calcium 8.4 mg/dL (8.4-10.2); Carbon Dioxide 36 mmol/L (22-30); Chloride 96 mmol/L (98-107); Estimated CRCL calculation 66 ml/min; Estimated Glomerular Filt Rate > 60; Glucose 98 mg/dL (65-110); Lactate Dehydrogenase 509 U/L (313-618); Magnesium 1.6 mg/dL (1.6-2.3); Potassium 4.3 mmol/L (3.4-5.0); Sodium 133 mmol/L (137-145)
[2021-03-30 08:04] LABS: INR 1.2; Prothrombin Time 14.6 Seconds (11.1-14.7)
[2021-03-30] MEDS: GABAPENTIN 100 MG CAPSULE PO ×4 (08:20→23:03)
[2021-03-30] MEDS: FERROUS SULFATE 324 MG TABLET PO ×2 (08:20→16:29)
[2021-03-30] MEDS: PANTOPRAZOLE 40 MG TABLET PO ×2 (08:20→23:04)
[2021-03-30] MEDS: SILVERGEL (ELTA) 45 ML 1 APPLIC TOPICAL (08:22)
[2021-03-30] MEDS: EUCERIN CREAM 120 GM JAR 1 APPLIC TOPICAL ×2 (08:23→16:30)
[2021-03-30] MEDS: ALBUTEROL SULFATE (*SP) AEROSOL 1 PUFF 2 PUFF INHALATION ×3 (08:48→20:20)
--- NOTE | 2021-03-30 10:15 | PCOTNOTE ---
Attempted to see Patient for A.M. treatment session. Patient had recently returned to bed, refusing to get out of bed or sit edge of the bed to perform ADL tasks. Patient stated, 'I'm done for now, I'll get back up with lunch and that is it. Patient refused any activity at this time.
[2021-03-30] MEDS: REMDESIVIR 100 MG/NS 250 ML 100 MG/250 ML BAG 250 MG IVPB (11:19)
[2021-03-30 12:16] LABS: Glucose Point of Care 159 mg/dl (65-105)
--- NOTE | 2021-03-30 14:19 | PM.IMPN ---
Progress Note: A&P Assessment and Plan (1) Cellulitis of both lower extremities: Code(s): L03.115 - Cellulitis of right lower limb; L03.116 - Cellulitis of left lower limb Status: Acute Assessment and Plan: Patient was hospitalized for about a week for lower extremity wounds, acute kidney injury and cellulitis. Left leg wound culture grew Pseudomonas and methicillin sensitive Staph aureus. Treated with IV Primaxin and Vanco but Vanco changed to Ancef once cultures known. She was switched to Keflex and Levaquin for discharge. She was discharged home but since being at home had trouble getting out of her wheelchair. Here, she was felt to have persistent cellulitis. Bilat LE venous doppler negative for DVT. Patient was started on vancomycin and Zosyn (changed to Vanco and Levaquin due to MEAGHAN). Now with positive BCx with Enterococcus faecalis (1of2) and Coag negative Staph (2of2). She developed a rash so abx changed to Linezolid and Cefepime. Rash has resolved. Source unclear but consider skin vs contaminant. Repeat BCx NGTD. WBC normal and CRP 4.2 (could be related to COVID). UCx growing Anita albicans felt contaminant. Continue Linezolid and Cefepime for now. (2) Bacteremia: Code(s): R78.81 - Bacteremia Status: Acute Assessment and Plan: Echo sowing EF 70% with Grade II diastolic dysfunction and moderate pulmonary HTN but no obvious vegetations. Repeat BCx NGTD. As above. (3) COVID-19: Code(s): U07.1 - COVID-19 Status: Acute Assessment and Plan: Patient was not tested for COVID during her previous hospitalization. Patient was brought back to the emergency room for weakness and cellulitis. She tested positive for COVID here. Chest x-ray was clear. She was on room air but now requiring 2L. CXR repeated and stable airspace opacities in the perihilar regions. Will continue with Dexamethasone and remdesivir (4) Acute kidney injury: Code(s): N17.9 - Acute kidney failure, unspecified Status: Acute Assessment and Plan: Patient had acute kidney injury last admission but normal at baseline. Creatinine normal on admission at 0.8. Cr worsened to 1.2 which could be related ATN from the bacteremia. Renal ultrasound normal. Cr back to normal. Will follow for now. (5) Anemia: Qualifiers: Anemia type: unspecified type Qualified Code(s): D64.9 - Anemia, unspecified Code(s): D64.9 - Anemia, unspecified Status: Acute Assessment and Plan: Patient appears to have a chronic anemia with hemoglobin mostly in the 7 range. She was recently hospitalized with anemia workup at that time included in EGD which showed reflux esophagitis and gastritis. Iron studies probably consistent with iron deficiency despite the slightly low TIBC. B12/folate levels normal. Continue PPI treatment. Continue iron replacement. Monitor H&H. Transfuse as necessary. (6) Hyponatremia: Code(s): E87.1 - Hypo-osmolality and hyponatremia Status: Acute Assessment and Plan: She appears to have a chronic hyponatremia ranging from 127-134. Anthony<5 anf UCr 138 and FENa 0.03%. IV fluids x 500mL. Elavil stopped and Na improving. Na 133 today. Follow. (7) Diabetes mellitus: Qualifiers: Diabetes mellitus complication status: with hyperglycemia Diabetes mellitus terminal computer operator insulin use: without terminal computer operator use Diabetes mellitus type: type 2 Qualified Code(s): E11.65 - Type 2 diabetes mellitus with hyperglycemia Code(s): E11.9 - Type 2 diabetes mellitus without complications Status: Acute Assessment and Plan: A1c 7.9 earlier this month. The patient's blood glucose was reviewed on 03/30 Glucose remains well controlled Continue AccuCheks covering with sliding scale. Hypoglycemia protocol available as needed. Continue to follow. (8) Degenerative joint disease of right hip: Qualifiers: Osteoarthritis type: primary Q
[2021-03-30] MEDS: ENOXAPARIN 40 MG/0.4 ML SYRINGE SUB-Q (14:24)
[2021-03-30 16:42] LABS: Glucose Point of Care 170 mg/dl (65-105)
[2021-03-30] MEDS: ACETAMINOPHEN 325 MG TABLET 650 MG PO (23:02)
[2021-03-31] VITALS (11 sets, daily range): BP systolic 97–143; BP diastolic 56–73; PULSE 68–79; RESP 16–20; TEMP 36.7–38.2; O2SAT 86–99
[2021-03-31] MEDS: HYDROcodone/acetaminophen (*CRX) 5-325 MG TABLET 1 TAB PO (02:22)
[2021-03-31] MEDS: ALBUTEROL SULFATE (*SP) AEROSOL 1 PUFF 2 PUFF INHALATION ×4 (02:50→21:22)
[2021-03-31 06:56] LABS: Basophils Percent Auto 0.3 % (0.2-1.2); Eosinophils Percent Auto 0.3 % (0-4.4); Hematocrit 27.9 % (37.0-47.0); Immature Granulocyte Absolute 0.04 K/mm3 (0.00-0.031); Immature Granulocyte Percent A 1.1 % (0-0.5); Lymphocytes Absolute Auto 1.15 K/mm3 (0.9-3.2); Lymphocytes Percent Auto 31.5 % (18.3-44.2); Mean Corpuscular HGB Conc 28.7 g/dl (32-36); Mean Corpuscular Hemoglobin 24.2 pg (26-34); Mean Corpuscular Volume 84.5 fl (80-100); Mean Platelet Volume 8.3 fl (7.4-10.4); Monocytes Absolute Auto 0.5 K/mm3 (0.1-0.6); Monocytes Percent Auto 13.7 % (2.6-8.5); Neutrophils Absolute Auto 1.9 K/mm3 (1.3-6.7); Neutrophils Percent Auto 53.1 % (45.5-73.1); Platelet Count Result 343 k/mm3 (150-375); Red Cell Distribution Width 18.8 % (11.5-14.5); White Blood Count 3.7 K/mm3 (4.5-10.0)
[2021-03-31 07:11] LABS: Alanine Aminotransferase 19 U/L (4-35); Albumin Level 2.9 g/dL (3.5-5.1); Alkaline Phosphatase 56 U/L (38-126); Anion Gap 5 mmol/L (8-16); Aspartate Amino Transferase 32 U/L (14-36); Bilirubin,Total 0.1 mg/dL (0.2-1.3); Blood Urea Nitrogen 15 mg/dL (7-17); Calcium 8.3 mg/dL (8.4-10.2); Carbon Dioxide 30 mmol/L (22-30); Chloride 97 mmol/L (98-107); Estimated CRCL calculation 74 ml/min; Estimated Glomerular Filt Rate > 60; Glucose 121 mg/dL (65-110); Magnesium 1.6 mg/dL (1.6-2.3); Phosphorus 2.6 mg/dL (2.5-4.5); Potassium 3.7 mmol/L (3.4-5.0); Sodium 132 mmol/L (137-145)
[2021-03-31 07:12] LABS: INR 1.2; Prothrombin Time 15.2 Seconds (11.1-14.7)
[2021-03-31 08:16] LABS: Glucose Point of Care 99 mg/dl (65-105)
[2021-03-31 08:26] LABS: Anisocytosis 1+ (NORMAL); Hypochromasia 1+ (NORMAL); Platelet Estimate Adequate (Adequate)
[2021-03-31] MEDS: FERROUS SULFATE 324 MG TABLET PO ×2 (08:35→17:01)
[2021-03-31] MEDS: GABAPENTIN 100 MG CAPSULE PO ×4 (08:35→22:09)
[2021-03-31] MEDS: PANTOPRAZOLE 40 MG TABLET PO ×2 (08:35→22:10)
[2021-03-31] MEDS: LINEZOLID 600 MG/300 ML 600 MG/300 ML SOLN 300 MG IVPB ×2 (08:36→22:08)
[2021-03-31] MEDS: TOLNAFTATE 1% POWDER 45 GM BTL 1 APPLIC TOPICAL ×3 (08:36→22:11)
[2021-03-31] MEDS: SILVERGEL (ELTA) 45 ML 1 APPLIC TOPICAL (08:37)
[2021-03-31] MEDS: EUCERIN CREAM 120 GM JAR 1 APPLIC TOPICAL ×2 (08:37→17:01)
--- NOTE | 2021-03-31 09:41 | PCNWS ---
Weekly nutritional screen. Patient is tolerating current diet with adequate intake of 80-100% of meals. No weight loss reported. No nutritional needs at this time.
[2021-03-31] MEDS: REMDESIVIR 100 MG/NS 250 ML 100 MG/250 ML BAG 250 MG IVPB (10:57)
--- NOTE | 2021-03-31 11:14 | PM.IMPN ---
Progress Note: A&P Assessment and Plan (1) Cellulitis of both lower extremities: Code(s): L03.115 - Cellulitis of right lower limb; L03.116 - Cellulitis of left lower limb Status: Acute Assessment and Plan: Patient was hospitalized for about a week for lower extremity wounds, acute kidney injury and cellulitis. Left leg wound culture grew Pseudomonas and methicillin sensitive Staph aureus. Treated with IV Primaxin and Vanco but Vanco changed to Ancef once cultures known. She was switched to Keflex and Levaquin for discharge. She was discharged home but since being at home had trouble getting out of her wheelchair. Here, she was felt to have persistent cellulitis. Bilat LE venous doppler negative for DVT. Patient was started on vancomycin and Zosyn (changed to Vanco and Levaquin due to MEAGHAN). Now with positive BCx with Enterococcus faecalis (1of2) and Coag negative Staph (2of2). She developed a rash so abx changed to Linezolid and Cefepime. Rash has resolved. Source unclear but consider skin vs contaminant. Repeat BCx NGTD. WBC low now (related to Remdesivir) and CRP 4.2 (could be related to COVID). Still having low grade fevers. UCx growing Anita albicans felt contaminant. Will stop Cefepime today. Continue Linezolid. Repeat CXR given the fever. (2) Bacteremia: Code(s): R78.81 - Bacteremia Status: Acute Assessment and Plan: Echo sowing EF 70% with Grade II diastolic dysfunction and moderate pulmonary HTN but no obvious vegetations. Repeat BCx NGTD. As above. (3) COVID-19: Code(s): U07.1 - COVID-19 Status: Acute Assessment and Plan: Patient was not tested for COVID during her previous hospitalization. Patient was brought back to the emergency room for weakness and cellulitis. She tested positive for COVID here (03/22). Chest x-ray was clear on admission but airspace opacities have developed. CXR repeated 03/29 showing airspace opacities in the perihilar regions. She was on room air but now requiring 2L O2 off and on. Still with fevers off/on as well. Will continue with Dexamethasone and remdesivir (4) Acute kidney injury: Code(s): N17.9 - Acute kidney failure, unspecified Status: Acute Assessment and Plan: Patient had acute kidney injury last admission but normal at baseline. Creatinine normal on admission at 0.8. Cr worsened to 1.2 which could be related ATN from the bacteremia. Renal ultrasound normal. Cr back to normal. Resolved. Will follow for now. (5) Anemia: Qualifiers: Anemia type: unspecified type Qualified Code(s): D64.9 - Anemia, unspecified Code(s): D64.9 - Anemia, unspecified Status: Acute Assessment and Plan: Patient appears to have a chronic anemia with hemoglobin mostly in the 7-8 range. She was recently hospitalized with anemia workup at that time included in EGD which showed reflux esophagitis and gastritis. Iron studies probably consistent with iron deficiency despite the slightly low TIBC. B12/folate levels normal. Continue PPI treatment. Continue iron replacement. Monitor H&H. Transfuse as necessary. (6) Hyponatremia: Code(s): E87.1 - Hypo-osmolality and hyponatremia Status: Acute Assessment and Plan: She appears to have a chronic hyponatremia ranging from 127-134. Anthony<5 anf UCr 138 and FENa 0.03%. IV fluids x 500mL. Elavil stopped and Na improving. Na 132 today. Follow. (7) Diabetes mellitus: Qualifiers: Diabetes mellitus complication status: with hyperglycemia Diabetes mellitus bag liner insulin use: without usp use Diabetes mellitus type: type 2 Qualified Code(s): E11.65 - Type 2 diabetes mellitus with hyperglycemia Code(s): E11.9 - Type 2 diabetes mellitus without complications Status: Acute Assessment and Plan: A1c 7.9 earlier this month. The patient's blood glucose was reviewed on 03/31 Glucose remains reasonably well controlled despi
[2021-03-31 12:07] LABS: Glucose Point of Care 170 mg/dl (65-105)
[2021-03-31] MEDS: ENOXAPARIN 40 MG/0.4 ML SYRINGE SUB-Q (14:10)
--- NOTE | 2021-03-31 14:36 | PCOTNOTE ---
Attempted to see patient this pm, however patient was with physical therapy.
--- NOTE | 2021-03-31 15:45 | PCPTNOTE ---
Called and spoke with daughter over the phone about patient's current level of functional, assistive device recommendation, and previously level of function. Discussed with nurse about recommendations on wheeled walker rather than rollator.
[2021-03-31 16:55] LABS: Glucose Point of Care 193 mg/dl (65-105)
[2021-04-01] VITALS (7 sets, daily range): BP systolic 120–146; BP diastolic 65–79; PULSE 71–85; RESP 16–20; TEMP 35.9–37.2; O2SAT 90–97; BMI 47.1
[2021-04-01] MEDS: ALBUTEROL SULFATE (*SP) AEROSOL 1 PUFF 2 PUFF INHALATION ×4 (02:40→19:55)
[2021-04-01] MEDS: HYDROcodone/acetaminophen (*CRX) 5-325 MG TABLET 1 TAB PO (03:04)
[2021-04-01 06:31] LABS: Hematocrit 29.4 % (37.0-47.0); Hemoglobin 8.5 g/dL (12.0-15.0); Mean Corpuscular HGB Conc 28.9 g/dl (32-36); Mean Corpuscular Hemoglobin 24.7 pg (26-34); Mean Corpuscular Volume 85.5 fl (80-100); Platelet Count Result 340 k/mm3 (150-375); Red Blood Count 3.44 M/mm3 (4.2-5.4); Red Cell Distribution Width 19.2 % (11.5-14.5); White Blood Count 4.3 K/mm3 (4.5-10.0)
[2021-04-01 06:42] LABS: INR 1.1; Prothrombin Time 13.7 Seconds (11.1-14.7)
[2021-04-01 06:46] LABS: Alanine Aminotransferase 20 U/L (4-35); Anion Gap 6 mmol/L (8-16); Blood Urea Nitrogen 12 mg/dL (7-17); CRP 2.4 mg/dL (<1.0); Calcium 8.4 mg/dL (8.4-10.2); Carbon Dioxide 33 mmol/L (22-30); Chloride 96 mmol/L (98-107); Estimated CRCL calculation 74 ml/min; Estimated Glomerular Filt Rate > 60; Glucose 114 mg/dL (65-110); Sodium 135 mmol/L (137-145)
[2021-04-01 08:06] LABS: Glucose Point of Care 103 mg/dl (65-105)
[2021-04-01] MEDS: LINEZOLID 600 MG/300 ML 600 MG/300 ML SOLN 300 MG IVPB ×2 (09:48→20:28)
[2021-04-01] MEDS: GABAPENTIN 100 MG CAPSULE PO ×4 (09:49→20:28)
[2021-04-01] MEDS: TOLNAFTATE 1% POWDER 45 GM BTL 1 APPLIC TOPICAL ×3 (09:50→20:32)
[2021-04-01] MEDS: PANTOPRAZOLE 40 MG TABLET PO ×2 (09:50→20:28)
[2021-04-01] MEDS: FERROUS SULFATE 324 MG TABLET PO ×2 (09:50→16:56)
[2021-04-01] MEDS: EUCERIN CREAM 120 GM JAR 1 APPLIC TOPICAL ×2 (09:51→16:57)
[2021-04-01] MEDS: REMDESIVIR 100 MG/NS 250 ML 100 MG/250 ML BAG 250 MG IVPB (10:54)
[2021-04-01 11:53] LABS: Glucose Point of Care 175 mg/dl (65-105)
[2021-04-01] MEDS: ENOXAPARIN 40 MG/0.4 ML SYRINGE SUB-Q (14:25)
--- NOTE | 2021-04-01 14:51 | PM.IMPN ---
Progress Note: A&P Assessment and Plan (1) Cellulitis of both lower extremities: Code(s): L03.115 - Cellulitis of right lower limb; L03.116 - Cellulitis of left lower limb Status: Acute Assessment and Plan: Patient was hospitalized for about a week for lower extremity wounds, acute kidney injury and cellulitis. Left leg wound culture grew Pseudomonas and methicillin sensitive Staph aureus. Treated with IV Primaxin and Vanco but Vanco changed to Ancef once cultures known. She was switched to Keflex and Levaquin for discharge. She was discharged home but since being at home had trouble getting out of her wheelchair. Here, she was felt to have persistent cellulitis. Bilat LE venous doppler negative for DVT. Patient was started on vancomycin and Zosyn (changed to Vanco and Levaquin due to MEAGHAN). Now with positive BCx with Enterococcus faecalis (1of2) and Coag negative Staph (2of2). She developed a rash so abx changed to Linezolid and Cefepime. Rash has resolved. Source unclear but consider skin vs contaminant. Repeat BCx NGTD. WBC low now (related to Remdesivir) and CRP 2.4 (could be related to COVID). No further fevers. UCx growing Anita albicans felt contaminant. We stopped Cefepime yesterday. Continue Linezolid to complete 14 days. Awaiting bed for discharge. She will be taking oral abx at discharge. (2) Bacteremia: Code(s): R78.81 - Bacteremia Status: Acute Assessment and Plan: Echo sowing EF 70% with Grade II diastolic dysfunction and moderate pulmonary HTN but no obvious vegetations. Repeat BCx NGTD. As above. (3) COVID-19: Code(s): U07.1 - COVID-19 Status: Acute Assessment and Plan: Patient was not tested for COVID during her previous hospitalization. Patient was brought back to the emergency room for weakness and cellulitis. She tested positive for COVID here (03/22). Chest x-ray was clear on admission but airspace opacities have developed. CXR repeated 03/31 showing airspace opacities in the bilateral LL but improved in the perihilar regions. IS ordered. She is requiring 2L O2 off and on. Still with fevers off/on as well. Will continue with Dexamethasone and remdesivir. (4) Acute kidney injury: Code(s): N17.9 - Acute kidney failure, unspecified Status: Acute Assessment and Plan: Patient had acute kidney injury last admission but normal at baseline. Creatinine normal on admission at 0.8. Cr worsened to 1.2 which could be related ATN from the bacteremia. Renal ultrasound normal. Cr back to normal. Resolved. Will follow for now. (5) Anemia: Qualifiers: Anemia type: unspecified type Qualified Code(s): D64.9 - Anemia, unspecified Code(s): D64.9 - Anemia, unspecified Status: Acute Assessment and Plan: Patient appears to have a chronic anemia with hemoglobin mostly in the 7-8 range. She was recently hospitalized with anemia workup at that time included in EGD which showed reflux esophagitis and gastritis. Iron studies probably consistent with iron deficiency despite the slightly low TIBC. B12/folate levels normal. Continue PPI treatment. Continue iron replacement. Monitor H&H. Transfuse as necessary. (6) Hyponatremia: Code(s): E87.1 - Hypo-osmolality and hyponatremia Status: Acute Assessment and Plan: She appears to have a chronic hyponatremia ranging from 127-134. Anthony<5 anf UCr 138 and FENa 0.03%. IV fluids x 500mL. Elavil stopped and Na improving. Na 135 today. Follow. (7) Diabetes mellitus: Qualifiers: Diabetes mellitus complication status: with hyperglycemia Diabetes mellitus group home insulin use: without group home use Diabetes mellitus type: type 2 Qualified Code(s): E11.65 - Type 2 diabetes mellitus with hyperglycemia Code(s): E11.9 - Type 2 diabetes mellitus without complications Status: Acute Assessment and Plan: A1c 7.9 earlier this month. The patient's
[2021-04-01 16:40] LABS: Glucose Point of Care 227 mg/dl (65-105)
[2021-04-01] MEDS: INSULIN ASPART (*BKC) 100 UNITS/ML SUB-Q (16:57)
[2021-04-01] MEDS: metFORMIN HCL 500 MG TABLET PO (16:57)
[2021-04-01 22:09] LABS: Glucose Point of Care 178 mg/dl (65-105)
[2021-04-02] VITALS (7 sets, daily range): BP systolic 119–145; BP diastolic 51–69; PULSE 75–83; RESP 18–20; TEMP 36.2–36.4; O2SAT 91–94
[2021-04-02] MEDS: ALBUTEROL SULFATE (*SP) AEROSOL 1 PUFF 2 PUFF INHALATION ×4 (01:12→21:30)
[2021-04-02] MEDS: HYDROcodone/acetaminophen (*CRX) 5-325 MG TABLET 1 TAB PO ×2 (02:02→22:16)
[2021-04-02 07:20] LABS: INR 1.2; Prothrombin Time 15.1 Seconds (11.1-14.7)
[2021-04-02 07:24] LABS: Alanine Aminotransferase 19 U/L (4-35); Estimated CRCL calculation 85 ml/min; Estimated Glomerular Filt Rate > 60
[2021-04-02] MEDS: LINEZOLID 600 MG/300 ML 600 MG/300 ML SOLN 300 MG IVPB ×2 (08:29→20:59)
[2021-04-02] MEDS: metFORMIN HCL 500 MG TABLET PO ×2 (08:30→17:19)
[2021-04-02] MEDS: PANTOPRAZOLE 40 MG TABLET PO ×2 (08:31→20:59)
[2021-04-02] MEDS: FERROUS SULFATE 324 MG TABLET PO ×2 (08:31→17:19)
[2021-04-02] MEDS: GABAPENTIN 100 MG CAPSULE PO ×4 (08:31→20:59)
[2021-04-02] MEDS: EUCERIN CREAM 120 GM JAR 1 APPLIC TOPICAL ×2 (08:33→17:20)
[2021-04-02] MEDS: TOLNAFTATE 1% POWDER 45 GM BTL 1 APPLIC TOPICAL ×3 (08:33→21:01)
[2021-04-02 09:11] LABS: Glucose Point of Care 120 mg/dl (65-105)
[2021-04-02] MEDS: REMDESIVIR 100 MG/NS 250 ML 100 MG/250 ML BAG 250 MG IVPB (10:21)
[2021-04-02] MEDS: guaiFENesin 12 HR 600 MG TABCR PO ×2 (10:22→20:59)
[2021-04-02 12:12] LABS: Glucose Point of Care 194 mg/dl (65-105)
[2021-04-02] MEDS: ENOXAPARIN 40 MG/0.4 ML SYRINGE SUB-Q (13:52)
--- NOTE | 2021-04-02 15:32 | PM.IMPN ---
Progress Note: A&P Assessment and Plan (1) Cellulitis of both lower extremities: Code(s): L03.115 - Cellulitis of right lower limb; L03.116 - Cellulitis of left lower limb Status: Acute Assessment and Plan: Patient was hospitalized for about a week for lower extremity wounds, acute kidney injury and cellulitis. Left leg wound culture grew Pseudomonas and methicillin sensitive Staph aureus. Treated with IV Primaxin and Vanco but Vanco changed to Ancef once cultures known. She was switched to Keflex and Levaquin for discharge. She was discharged home but since being at home had trouble getting out of her wheelchair. Here, she was felt to have persistent cellulitis. Bilat LE venous doppler negative for DVT. Patient was started on vancomycin and Zosyn (changed to Vanco and Levaquin due to MEAGHAN). Now with positive BCx with Enterococcus faecalis (1of2) and Coag negative Staph (2of2). She developed a rash so abx changed to Linezolid and Cefepime. Rash has resolved. Source of bacteremia unclear but consider skin vs contaminant. Repeat BCx NGTD. WBC low now (related to Remdesivir) and CRP 2.4 (could be related to COVID). No further fevers. UCx growing Anita albicans felt contaminant. We stopped Cefepime 03/31. Continue Linezolid to complete 14 days. Awaiting bed for discharge. She will be taking oral abx at discharge. Cellulitis has resolved. Powders to stop. Continue Eucerin cream to the bilateral LE BID. Tried Wilmer Hose but she could not tolerate. (2) Bacteremia: Code(s): R78.81 - Bacteremia Status: Acute Assessment and Plan: Echo sowing EF 70% with Grade II diastolic dysfunction and moderate pulmonary HTN but no obvious vegetations. Repeat BCx NGTD. As above. (3) COVID-19: Code(s): U07.1 - COVID-19 Status: Acute Assessment and Plan: Patient was not tested for COVID during her previous hospitalization. Patient was brought back to the emergency room for weakness and cellulitis. She tested positive for COVID here (03/22). Chest x-ray was clear on admission but airspace opacities have developed. CXR repeated 03/31 showing airspace opacities in the bilateral LL but improved in the perihilar regions. IS ordered. She is requiring oxygen off and on. Fevers have resolved. She has completed Remdesivir. Continue with Dexamethasone. (4) Acute kidney injury: Code(s): N17.9 - Acute kidney failure, unspecified Status: Acute Assessment and Plan: Patient had acute kidney injury last admission but normal at baseline. Creatinine normal on admission at 0.8. Cr worsened to 1.2 which could be related ATN from the bacteremia. Renal ultrasound normal. Cr back to normal. Resolved. Will follow for now. (5) Anemia: Qualifiers: Anemia type: unspecified type Qualified Code(s): D64.9 - Anemia, unspecified Code(s): D64.9 - Anemia, unspecified Status: Acute Assessment and Plan: Patient appears to have a chronic anemia with hemoglobin mostly in the 7-8 range. She was recently hospitalized with anemia workup at that time included in EGD which showed reflux esophagitis and gastritis. Iron studies probably consistent with iron deficiency despite the slightly low TIBC. B12/folate levels normal. Continue PPI treatment. Continue iron replacement. Monitor H&H. Transfuse as necessary. (6) Hyponatremia: Code(s): E87.1 - Hypo-osmolality and hyponatremia Status: Acute Assessment and Plan: She appears to have a chronic hyponatremia ranging from 127-134. Anthony<5 anf UCr 138 and FENa 0.03%. IV fluids x 500mL. Elavil stopped and Na improving. Na 135 now. Follow. (7) Diabetes mellitus: Qualifiers: Diabetes mellitus complication status: with hyperglycemia Diabetes mellitus re examiner insulin use: without nursing home use Diabetes mellitus type: type 2 Qualified Code(s): E11.65 - Type 2 diabetes mellitus with hyperglycemia Code(s): E11.9 - T
[2021-04-02 17:29] LABS: Glucose Point of Care 181 mg/dl (65-105)
[2021-04-02] MEDS: MELATONIN 5 MG TABLET PO (20:59)
[2021-04-02 22:15] LABS: Glucose Point of Care 141 mg/dl (65-105)
[2021-04-03] VITALS (7 sets, daily range): BP systolic 95–142; BP diastolic 59–75; PULSE 79–88; RESP 18–24; TEMP 36.1–36.6; O2SAT 92–95
[2021-04-03] MEDS: ALBUTEROL SULFATE (*SP) AEROSOL 1 PUFF 2 PUFF INHALATION ×2 (01:44→10:03)
[2021-04-03] MEDS: FERROUS SULFATE 324 MG TABLET PO (09:09)
[2021-04-03] MEDS: GABAPENTIN 100 MG CAPSULE PO ×2 (09:09→15:01)
[2021-04-03] MEDS: guaiFENesin 12 HR 600 MG TABCR PO (09:09)
[2021-04-03] MEDS: metFORMIN HCL 500 MG TABLET PO (09:09)
[2021-04-03] MEDS: PANTOPRAZOLE 40 MG TABLET PO (09:09)
[2021-04-03] MEDS: EUCERIN CREAM 120 GM JAR 1 APPLIC TOPICAL (09:11)
[2021-04-03] MEDS: TOLNAFTATE 1% POWDER 45 GM BTL 1 APPLIC TOPICAL ×2 (09:11→09:14)
[2021-04-03] MEDS: LINEZOLID 600 MG/300 ML 600 MG/300 ML SOLN 300 MG IVPB (09:18)
--- NOTE | 2021-04-03 11:08 | PM.DS ---
DS: Admitting Diagnosis Discharge Date 04/03/21 Admitting Diagnosis Weakness DS: Discharge Diagnosis Discharge Diagnosis (1) Cellulitis of both lower extremities: Code(s): L03.115 - Cellulitis of right lower limb; L03.116 - Cellulitis of left lower limb Status: Acute Assessment and Plan: Patient was hospitalized for about a week for lower extremity wounds, acute kidney injury and cellulitis. Left leg wound culture grew Pseudomonas and methicillin sensitive Staph aureus. Treated with IV Primaxin and Vanco but Vanco changed to Ancef once cultures known. She was switched to Keflex and Levaquin for discharge. She was discharged home but since being at home had trouble getting out of her wheelchair. Here, she was felt to have persistent cellulitis. Bilat LE venous doppler negative for DVT. Patient was started on vancomycin and Zosyn (changed to Vanco and Levaquin due to MEAGHAN). She developed positive BCx with Enterococcus faecalis (1of2) and Coag negative Staph (2of2). She developed a rash so abx changed to Linezolid and Cefepime. Rash has resolved. Source of bacteremia unclear but consider skin vs contaminant. Repeat BCx NGTD. WBC low now (related to Remdesivir) and CRP 2.4 (could be related to COVID). No further fevers. UCx growing Anita albicans felt contaminant. We stopped Cefepime 03/31. Continue Linezolid to complete 14 days (through the morning dose on 04/07/21). Cellulitis has resolved. Continue Eucerin cream to the bilateral LE BID. Tried Wilmer Hose but she could not tolerate. (2) Bacteremia: Code(s): R78.81 - Bacteremia Status: Acute Assessment and Plan: Echo sowing EF 70% with Grade II diastolic dysfunction and moderate pulmonary HTN but no obvious vegetations. Repeat BCx NGTD. As above. (3) COVID-19: Code(s): U07.1 - COVID-19 Status: Acute Assessment and Plan: Patient was not tested for COVID during her previous hospitalization. Patient was brought back to the emergency room for weakness and cellulitis. She tested positive for COVID here (03/22). Chest x-ray was clear on admission but airspace opacities have developed. CXR repeated 03/31 showing airspace opacities in the bilateral LL but improved in the perihilar regions. Encouraged incentive spirometry use. She was requiring oxygen off and on but remains on room air since 04/01/21. Fevers have resolved. She completed Remdesivir. She is still wheezing so will continue to complete a course of Dexamethasone. (4) Acute kidney injury: Code(s): N17.9 - Acute kidney failure, unspecified Status: Acute Assessment and Plan: Patient had acute kidney injury last admission but normal at baseline. Creatinine normal on admission at 0.8. Cr worsened to 1.2 which could be related ATN from the bacteremia. Renal ultrasound normal. Cr back to normal. Resolved. (5) Anemia: Qualifiers: Anemia type: unspecified type Qualified Code(s): D64.9 - Anemia, unspecified Code(s): D64.9 - Anemia, unspecified Status: Acute Assessment and Plan: Patient appears to have a chronic anemia with hemoglobin mostly in the 7-8 range. She was recently hospitalized with anemia workup at that time included in EGD which showed reflux esophagitis and gastritis. Iron studies probably consistent with iron deficiency despite the slightly low TIBC. B12/folate levels normal. We continued PPI treatment and iron replacement. (6) Hyponatremia: Code(s): E87.1 - Hypo-osmolality and hyponatremia Status: Acute Assessment and Plan: She appears to have a chronic hyponatremia ranging from 127-134. Anthony<5 and FENa 0.03%. IV fluids x 500mL. Elavil stopped and Na improving. Na was up to 135 now. (7) Diabetes mellitus: Qualifiers: Diabetes mellitus complication status: with hyperglycemia Diabetes mellitus penitentiary insulin use: without penitentiary use Diabetes mellitus type: type 2 Qualifie
[2021-04-03] MEDS: HYDROcodone/acetaminophen (*CRX) 5-325 MG TABLET 1 TAB PO (11:31)
[2021-04-03 11:57] LABS: Glucose Point of Care 172 mg/dl (65-105)
[2021-04-03] MEDS: ALBUTEROL SULFATE (*SP) INHALER 1 PUFF (14:02)
[2021-04-03] MEDS: ENOXAPARIN 40 MG/0.4 ML SYRINGE SUB-Q (15:01)
== END 2021-04-03 15:40 | DRG 602 ==
LOC: ANHED 20:30 → ANH3MEDSUR 21:32
PROVIDERS: Internal Medicine; Admitting Provider Internal Medicine; Emergency Provider Nurse Practitioner; PCP Family Medicine; Visit Provider Internal Medicine
DX: L03.115 Cellulitis of right lower limb (principal); U07.1 COVID-19; N17.0 Acute kidney failure with tubular necrosis; J12.82 Pneumonia due to coronavirus disease 2019; R78.81 Bacteremia; E87.1 Hypo-osmolality and hyponatremia; Z68.42 Body mass index [BMI] 45.0-49.9, adult; L03.116 Cellulitis of left lower limb; I87.2 Venous insufficiency (chronic) (peripheral); E66.01 Morbid (severe) obesity due to excess calories; D50.9 Iron deficiency anemia, unspecified; E11.65 Type 2 diabetes mellitus with hyperglycemia; B95.2 Enterococcus as the cause of diseases classified elsewhere; B95.7 Other staphylococcus as the cause of diseases classified elsewhere; M16.11 Unilateral primary osteoarthritis, right hip; I27.20 Pulmonary hypertension, unspecified; I10 Essential (primary) hypertension; I73.9 Peripheral vascular disease, unspecified; E11.42 Type 2 diabetes mellitus with diabetic polyneuropathy; K21.9 Gastro-esophageal reflux disease without esophagitis; E11.69 Type 2 diabetes mellitus with other specified complication; B35.4 Tinea corporis
CPT/HCPCS: 36415; 71045; 72192; 73502; 76775; 80048; 80053; 80069; 81001; 82550; 82565; 82570; 82728; 82948; 83605; 83615; 83735; 83880; 84100; 84300; 84460; 84484; 85025; 85027; 85610; 86140; 87040; 87077; 87086; 87088; 87106; 87186; 92610; 93005; 93306; 93970; 94640; 94762; 96361; 96365; 96366; 96367; 96372; 96375; 97110; 97116; 97161; 97165; 97530; 97535; 99285; A9270; C9803; G0378; J0131; J0690; J0692; J1100; J1170; J1650; J1815; J1940; J1956; J2020; J2405; J2543; J3370; J7030; U0003; U0005

== ENCOUNTER 2021-04-28 11:32 | Observation (INO) | payer MEDICARE, MEDICAID, SELFPAY ==
--- NOTE | ~2021-04-28 | CT_ITS ---
EXAMINATION: CT hip RT wo con DATE: 04/28/2021 13:58 INDICATION: Right hip pain after fall TECHNIQUE: Computed tomography (CT) of the right hip was performed without intravenous contrast. The dose-length product was 632.66 mGy-cm. Automated exposure control and iterative reconstruction techni que were employed. COMPARISON: CT dated 03/23/2021 FINDINGS: There is severe osteoarthritis of the right hip with remodeling of the acetabulum and femor al head. No acute fracture is identified. There is osteitis pubis. No significant soft tissue abnorma lity. No foreign bodies. Mild pelvic lymphadenopathy, likely reactive. IMPRESSION: 1. No acute fracture. 2: Severe osteoarthritis of the right hip. Reviewed, dictated and finalized at location A. EATION THERAPY TEACHER
--- NOTE | ~2021-04-28 | XR_ITS ---
EXAMINATION: XR hip RT 2V w AP pelvis DATE: 04/28/2021 12:55 INDICATION: Right hip pain. Fall. TECHNIQUE: An anteroposterior view of the pelvis and 2 views of right hip were obtained. COMPARISON: Pelvis and right hip radiographs 03/23/2021 FINDINGS: There is lumbar levoscoliosis and severe spondylosis. No fracture. There is advanced right hip osteoarthritis. There is moderate left hip osteoarthritis. IMPRESSION: 1. Advanced right hip osteoarthritis and moderate left hip osteoarthritis. Reviewed, dictated and finalized at location A. D PROPELLANT PROCESSOR
[2021-04-28 11:34] VITALS: BP 114/87; PULSE 83; RESP 18; TEMP 36.7; O2SAT 94
--- NOTE | 2021-04-28 13:27 | ED.FALL ---
HPI - Fall General Chief Complaint: Fall Stated Complaint: R hip pain, fall yesterday Time Seen by Provider: 04/28/21 12:30 Source: patient and RN notes reviewed History of Present Illness HPI Narrative: 75-year-old female with extensive past medical history and recent hospitalization for cellulitis presents to the emergency department for evaluation after having a ground-level fall yesterday. Patient had recently gotten out of rehab approximately 1 week ago. Patient states she was transitioning from the bed to the wheelchair yesterday when she slid and landed on her right hip. Patient states she does have chronic right hip pain but since having the ground-level fall yesterday due to hip pain that she is unable to bear weight. Home health visit her today and felt that she was not safe at home with her immobility, patient was referred to the emergency department for evaluation. Patient does have erythematous lower extremities. These had previously been weeping but no longer have any active drainage. Patient does feel that these are improved since her baseline. Related Data Home Medications Medication Instructions Recorded Confirmed pantoprazole 40 mg PO BID 03/23/21 04/28/21 amitriptyline 25 mg PO HS 04/28/21 04/28/21 chlorthalidone 25 mg PO DAILY 04/28/21 04/28/21 clotrimazole 1 applic TOPICAL BID 04/28/21 04/28/21 ergocalciferol (vitamin D2) 1,250 mcg PO WEEKLY 04/28/21 04/28/21 lisinopril 2.5 mg PO DAILY 04/28/21 04/28/21 lisinopril 10 mg PO DAILY 04/28/21 04/28/21 tolnaftate 1 applic TOPICAL DAILY 04/28/21 04/28/21 tramadol 50 mg PO Q6H PRN 04/28/21 04/28/21 Allergies Allergy/AdvReac Type Severity Reaction Status Date / Time levofloxacin [From Levaquin] Allergy Rash Verified 03/25/21 11:00 vancomycin Allergy Rash Verified 03/25/21 11:00 Review of Systems Review of Systems: CONSTITUTIONAL: Denies fever, chills, or sweats. EYES: Denies visual changes, redness, or discharge. ENT: Denies rhinorrhea, congestion, sore throat, or otalgia. CARDIOVASCULAR: Denies any chest pain. Chronic leg edema improved over baseline. RESPIRATORY: Denies cough or dyspnea. GASTROINTESTINAL: Denies abdominal pain, nausea, vomiting, or diarrhea. GENITOURINARY: Denies dysuria or hematuria. SKIN: Denies rash or itching. MUSCULOSKELETAL: Right hip pain and inability to walk due to pain NEUROLOGIC: Denies headache, numbness, or weakness. 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 Diabetes mellitus type 2 in obese Erosive esophagitis Frequency of urination GERD (gastroesophageal reflux disease) History of cellulitis History of UTI Neuropathy NSAID induced gastritis Obesity Occult blood positive stool Painful urination Poor dentition Sleep disorder SOB (shortness of breath) Urination pain Vision abnormalities Wears glasses Surgical History Surgical History History of bilateral carpal tunnel release History of laparoscopic cholecystectomy Surgical history unknown Family History Family History Sibling Hypertension Family history of malignant neoplasm of breast in first degree relative Father Hypertension Mother Family history unknown Other Arthritis Asthma Lung disease Skin cancer Social History Social History Social History: The patient is and has 2 children. She lives with her daughter. She is retired. Patient is a former smoker. She denies any drugs alcohol marijuana or illicit drugs. Her 2 children are her durable power of children's book author for healthcare. [place]
[2021-04-28 13:46] LABS: Basophils Percent Auto 0.5 % (0.2-1.2); Eosinophils Absolute Auto 0.1 K/mm3 (0-0.3); Hemoglobin 9.3 g/dL (12.0-15.0); Immature Granulocyte Absolute 0.01 K/mm3 (0.00-0.031); Immature Granulocyte Percent A 0.2 % (0-0.5); Lymphocytes Absolute Auto 1.68 K/mm3 (0.9-3.2); Lymphocytes Percent Auto 28.6 % (18.3-44.2); Mean Corpuscular HGB Conc 29.1 g/dl (32-36); Mean Corpuscular Hemoglobin 24.3 pg (26-34); Mean Corpuscular Volume 83.6 fl (80-100); Mean Platelet Volume 8.6 fl (7.4-10.4); Monocytes Absolute Auto 0.6 K/mm3 (0.1-0.6); Monocytes Percent Auto 10.4 % (2.6-8.5); Neutrophils Absolute Auto 3.4 K/mm3 (1.3-6.7); Neutrophils Percent Auto 58.3 % (45.5-73.1); Platelet Count Result 359 k/mm3 (150-375); Red Blood Count 3.83 M/mm3 (4.2-5.4); Red Cell Distribution Width 20.4 % (11.5-14.5); White Blood Count 5.9 K/mm3 (4.5-10.0)
[2021-04-28 13:57] LABS: Alanine Aminotransferase 16 U/L (4-35); Albumin Level 2.8 g/dL (3.5-5.1); Alkaline Phosphatase 91 U/L (38-126); Anion Gap 4 mmol/L (8-16); Aspartate Amino Transferase 23 U/L (14-36); Bilirubin,Total 0.1 mg/dL (0.2-1.3); Blood Urea Nitrogen 8 mg/dL (7-17); Carbon Dioxide 30 mmol/L (22-30); Chloride 104 mmol/L (98-107); Estimated CRCL calculation 88 ml/min; Estimated Glomerular Filt Rate > 60; Glucose 105 mg/dL (65-110); Lactic Acid Reflex 1.4 mmol/L (0.7-2.1); Potassium 3.8 mmol/L (3.4-5.0); Sodium 138 mmol/L (137-145)
--- NOTE | 2021-04-28 15:00 | PM.IMHP ---
H&P: HPI History of Present Illness Date/Time: 04/28/21 15:00 Chief Complaint: Fall Narrative: Patient is a 75-year-old female with a past medical history anxiety, arthritis, cellulitis, diabetes, obesity who presented to the ED with complaints of a fall. Patient was at home in her wheelchair when she had slid out of her wheelchair and fell on the floor. Patient does have hip pain however she said it is even worse and she is not able to stand on it. She does currently rates her pain an 8/10 and is complaining of weakness and fatigue. She is unable to move very well. Have a pelvis CT showed no acute fracture, severe osteoarthritis of the right hip, hip and pelvis x-ray showed advanced right hip osteoarthritis with moderate left hip osteoarthritis. Patient did get upset when I woke her up she said that she is tired and she just wants sleep however she stated that she sleeps a lot since she has been laying around. She is also hungry and is wanting a tray. She denied any chest pain, shortness of breath, nausea, vomiting, diarrhea, constipation, lightheadedness, headache, visual changes, hearing changes, dizziness, sweats, fevers, chills. Patient was recently discharged for bilateral lower extremity cellulitis. They are currently still red however there is no active weeping or discharge at this time. Patient did state that she feels like her legs look better than they did when she was here. She also admits today completing her antibiotic course. 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 Diabetes mellitus type 2 in obese Erosive esophagitis Frequency of urination GERD (gastroesophageal reflux disease) History of cellulitis History of UTI Neuropathy NSAID induced gastritis Obesity Occult blood positive stool Painful urination Poor dentition Sleep disorder SOB (shortness of breath) Urination pain Vision abnormalities Wears glasses Surgical History Surgical History History of bilateral carpal tunnel release History of laparoscopic cholecystectomy Surgical history unknown Family History Family History Sibling Hypertension Family history of malignant neoplasm of breast in first degree relative Father Hypertension Mother Family history unknown Other Arthritis Asthma Lung disease Skin cancer Social History Social History Social History: The patient is and has 2 children. She lives with her daughter. She is retired. Patient is a former smoker. She denies any drugs alcohol marijuana or illicit drugs. Her 2 children are her durable power of litigation attorney for healthcare. Code status full code Smoking packs per day: 1.5 Smoking cigarettes per day: 30.0 Years smoked: 50 Smoking pack-years: 75.00 Smoking status: Former smoker Tobacco type: cigarettes Second hand tobacco smoke exposure: Yes Smoking end date: 09/28/18 Additional smoking assessment comments: 1-2 packs per day, varied daily Alcohol intake: current Drinks per week: 1 Substance use: never Substance use type: marijuana Other substance usage details: uses 2x/week Last use: 04/20/21 Gender identity (if verbalized by the patient): Female Sexual Orientation (if Verbalized by the Patient): Straight or Heterosexual Spiritual care concerns: Yes (Anabaptist) Meds Home Medications and Allergies Home Medications Medication Instructions Recorded Co
[2021-04-28 15:28] VITALS: BP 137/88; PULSE 77; RESP 20; O2SAT 93
[2021-04-28 16:35] VITALS: BMI 46.4
[2021-04-28 16:56] VITALS: BP 112/64; PULSE 80; RESP 20; TEMP 36.2; O2SAT 90
--- NOTE | 2021-04-28 18:06 | PM.CNOR ---
Assessment and Plan Additional Plan Aggravation of underlying Right hip OA mobilize as tolerated. pt has limited rehab potential but should be able to return to standing and pivot turns to sitting in a WC. No surg is indicated acutely. History of Present Illness HPI Consult date: 04/28/21 Chief complaint: Right hip pain Narrative: 69 yo mainly wheelchair bound for OA of hips Right >> Left. Pt slipped out of WC earlier today and was c/o right hip pain. Xrays show severe arthritis and CT was neg for fx. Asked to see because of underlying OA and increased right hip pain. Recently discharged for bilat LE cellulitis but this is seemingly improving. 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 Diabetes mellitus type 2 in obese Erosive esophagitis Frequency of urination GERD (gastroesophageal reflux disease) History of cellulitis History of UTI Neuropathy NSAID induced gastritis Obesity Occult blood positive stool Painful urination Poor dentition Sleep disorder SOB (shortness of breath) Urination pain Vision abnormalities Wears glasses Surgical History Surgical History History of bilateral carpal tunnel release History of laparoscopic cholecystectomy Surgical history unknown Family History Family History Sibling Hypertension Family history of malignant neoplasm of breast in first degree relative Father Hypertension Mother Family history unknown Other Arthritis Asthma Lung disease Skin cancer Social History Social History Social History: The patient is and has 2 children. She lives with her daughter. She is retired. Patient is a former smoker. She denies any drugs alcohol marijuana or illicit drugs. Her 2 children are her durable power of administrative program specialist for healthcare. Code status full code Smoking packs per day: 1.5 Smoking cigarettes per day: 30.0 Years smoked: 50 Smoking pack-years: 75.00 Smoking status: Former smoker Tobacco type: cigarettes Second hand tobacco smoke exposure: Yes Smoking end date: 09/28/18 Additional smoking assessment comments: 1-2 packs per day, varied daily Alcohol intake: current Drinks per week: 1 Substance use: never Substance use type: marijuana Other substance usage details: uses 2x/week Last use: 04/20/21 Gender identity (if verbalized by the patient): Female Sexual Orientation (if Verbalized by the Patient): Straight or Heterosexual Spiritual care concerns: Yes (Synagogue) Meds Home Medications and Allergies Home Medications Medication Instructions Recorded Confirmed Type gabapentin 100 mg PO QID #90 cap 03/20/21 04/28/21 Rx metformin 500 mg PO BID #60 tablet 03/20/21 04/28/21 Rx OneTouch Verio test strips #1 pkg 03/21/21 04/28/21 Rx lancets [OneTouch Delica Plus #1 pkg 03/21/21 04/28/21 Rx Lancet] pantoprazole 40 mg PO BID 03/23/21 04/28/21 History acetaminophen [Mapap 650 mg PO Q4H PRN #30 tablet 04/03/21 04/28/21 Rx (acetaminophen)] albuterol sulfate [Proventil HFA] 2 puff INHALATION Q6HRT PRN #6.7 g 04/03/21 04/28/21 Rx hydrocodone-acetaminophen 1 tablet PO Q6H PRN #10 tablet 04/03/21 04/28/21 Rx amitriptyline 25 mg PO HS 04/28/21 04/28/21 History chlorthalidone 25 mg PO DAILY 04/28/21 04/28/21 History clotrimazole 1 applic TOPICAL BID 04/28/21 04/28/21 History ergocalciferol (vitamin D2) 1,250 mcg PO WEEKLY 04/28/21 04/28/21 History lisinopril 2.5 mg PO DAILY 04/28/21 04/28/21 History lisinopril 10 mg PO DAILY 04/28/21 04/28/21 History tolnaftate 1
[2021-04-28 19:29] LABS: Glucose Point of Care 156 mg/dl (65-105)
[2021-04-28] MEDS: MORPHINE SULFATE (*CRX) 2 MG/ML INJ IV PUSH (19:38)
[2021-04-28] MEDS: ENOXAPARIN 40 MG/0.4 ML SYRINGE SUB-Q (19:38)
[2021-04-28] MEDS: GABAPENTIN 100 MG CAPSULE PO (21:35)
[2021-04-28] MEDS: AMITRIPTYLINE HCL 25 MG TABLET PO (21:35)
[2021-04-28] MEDS: PANTOPRAZOLE 40 MG TABLET PO (21:35)
[2021-04-28] MEDS: MICONAZOLE NITRATE 2% CREAM 30 GM TUBE 1 APPLIC TOPICAL (21:36)
[2021-04-28 22:00] VITALS: BP 120/60; PULSE 90; RESP 16; TEMP 37.2; O2SAT 91
[2021-04-29] MEDS: HYDROcodone/acetaminophen (*CRX) 5-325 MG TABLET 1 TAB PO ×3 (03:03→18:38)
[2021-04-29 05:34] VITALS: BP 123/53; PULSE 79; RESP 16; TEMP 37.2; O2SAT 97
[2021-04-29 05:48] VITALS: TEMP 37.2
[2021-04-29 05:50] LABS: Basophils Percent Auto 0.7 % (0.2-1.2); Eosinophils Absolute Auto 0.2 K/mm3 (0-0.3); Eosinophils Percent Auto 3.6 % (0-4.4); Hematocrit 30.8 % (37.0-47.0); Hemoglobin 8.9 g/dL (12.0-15.0); Immature Granulocyte Absolute 0.02 K/mm3 (0.00-0.031); Immature Granulocyte Percent A 0.4 % (0-0.5); Lymphocytes Absolute Auto 1.44 K/mm3 (0.9-3.2); Mean Corpuscular HGB Conc 28.9 g/dl (32-36); Mean Corpuscular Hemoglobin 24.5 pg (26-34); Mean Corpuscular Volume 84.6 fl (80-100); Mean Platelet Volume 8.6 fl (7.4-10.4); Monocytes Absolute Auto 0.7 K/mm3 (0.1-0.6); Monocytes Percent Auto 12.5 % (2.6-8.5); Neutrophils Absolute Auto 3.1 K/mm3 (1.3-6.7); Neutrophils Percent Auto 56.8 % (45.5-73.1); Platelet Count Result 342 k/mm3 (150-375); Red Blood Count 3.64 M/mm3 (4.2-5.4); Red Cell Distribution Width 20.1 % (11.5-14.5); White Blood Count 5.5 K/mm3 (4.5-10.0)
[2021-04-29 06:00] LABS: Alanine Aminotransferase 14 U/L (4-35); Albumin Level 2.7 g/dL (3.5-5.1); Alkaline Phosphatase 87 U/L (38-126); Anion Gap 2 mmol/L (8-16); Aspartate Amino Transferase 23 U/L (14-36); Bilirubin,Total 0.3 mg/dL (0.2-1.3); Blood Urea Nitrogen 9 mg/dL (7-17); Calcium 7.9 mg/dL (8.4-10.2); Carbon Dioxide 31 mmol/L (22-30); Chloride 102 mmol/L (98-107); Estimated CRCL calculation 88 ml/min; Estimated Glomerular Filt Rate > 60; Glucose 102 mg/dL (65-110); Magnesium 1.7 mg/dL (1.6-2.3); Potassium 4.1 mmol/L (3.4-5.0); Sodium 135 mmol/L (137-145)
[2021-04-29 07:57] LABS: Glucose Point of Care 97 mg/dl (65-105)
[2021-04-29] MEDS: MAGNESIUM SULF 2 GM/WATER 50ML 2 GM/50 ML BAG IVPB (09:38)
[2021-04-29] MEDS: TOLNAFTATE 1% POWDER 45 GM BTL 1 APPLIC TOPICAL (09:40)
[2021-04-29] MEDS: hydroCHLOROthiazide 12.5 MG CAPSULE PO (09:40)
[2021-04-29] MEDS: GABAPENTIN 100 MG CAPSULE PO ×3 (09:40→20:51)
[2021-04-29] MEDS: MICONAZOLE NITRATE 2% CREAM 30 GM TUBE 1 APPLIC TOPICAL ×2 (09:40→20:52)
[2021-04-29] MEDS: PANTOPRAZOLE 40 MG TABLET PO ×2 (09:40→20:51)
--- NOTE | 2021-04-29 10:45 | PCPTNOTE ---
Attempted PT eval, however, when attempted sit to stand transfer patient refused to stand stating the pain was too intense to transfer.
--- NOTE | 2021-04-29 11:15 | PM.IMPN ---
Progress Note: A&P Assessment and Plan (1) Osteoarthritis: Qualifiers: Laterality: right Osteoarthritis location: hip Osteoarthritis type: unspecified Qualified Code(s): M16.11 - Unilateral primary osteoarthritis, right hip Code(s): M19.90 - Unspecified osteoarthritis, unspecified site Status: Acute Assessment and Plan: Patient fell out of wheelchair X-rays indicate osteoarthritis of bilateral hips Dr. Hurtado consult thank you for your help Pain medications PT/OT (2) PAD (peripheral artery disease): Code(s): I73.9 - Peripheral vascular disease, unspecified Status: Acute Assessment and Plan: Bilateral lower extremity edema Recently completed a course of linezolid Cipro and Flagyl Reports looking better She does have a red swollen bilateral lower legs with skin peeling dry Elevate lower extremities Wound consult to ensure that she has the proper care. (3) HTN (hypertension), benign: Code(s): I10 - Essential (primary) hypertension Status: Acute Assessment and Plan: Blood pressure is 123/53 Continue lisinopril and hydrochlorothiazide Trend blood pressure Adjust therapy as indicated (4) Obesity: Code(s): E66.9 - Obesity, unspecified Status: Acute Assessment and Plan: BMI is 46.5 Dietitian consult Lifestyle modifications and education Might benefit from a GLP1 (5) Anemia: Code(s): D64.9 - Anemia, unspecified Status: Acute Assessment and Plan: H&H 8.9/30.8 Probably anemia of chronic disease Anemia labs in the morning Trend H&H Transfuse as indicated Time Spent With Patient Time with patient: Greater than 35 minutes Subjective Date/time seen: 04/29/21 11:15 Interval history: Date/Time: 04/28/21 15:00 Narrative: Patient is a 75-year-old female with a past medical history anxiety, arthritis, cellulitis, diabetes, obesity who presented to the ED with complaints of a fall. Patient was at home in her wheelchair when she had slid out of her wheelchair and fell on the floor. Patient does have hip pain however she said it is even worse and she is not able to stand on it. She does currently rates her pain an 8/10 and is complaining of weakness and fatigue. She is unable to move very well. Have a pelvis CT showed no acute fracture, severe osteoarthritis of the right hip, hip and pelvis x-ray showed advanced right hip osteoarthritis with moderate left hip osteoarthritis. Patient did get upset when I woke her up she said that she is tired and she just wants sleep however she stated that she sleeps a lot since she has been laying around. She is also hungry and is wanting a tray. She denied any chest pain, shortness of breath, nausea, vomiting, diarrhea, constipation, lightheadedness, headache, visual changes, hearing changes, dizziness, sweats, fevers, chills. Patient was recently discharged for bilateral lower extremity cellulitis. They are currently still red however there is no active weeping or discharge at this time. Patient did state that she feels like her legs look better than they did when she was here. She also admits today completing her antibiotic course. Date/Time 04/29/21 1115 Patient was sitting in the chair. She stated that it was not easy for her to transfer to the chair. She asked about knee braces. PT was in the room after working with her to get up. They are recommending a rehab at this time. She also talked to me about diabetes supplies as she was unable to get the right ones the coincided with her insurance. She denies chest pain, shortness of breath, nausea, vomiting, diarrhea, constipation, weakness, and fatigue. Review of Systems Review of Systems: All systems reviewed & are unremarkable except as noted in HPI and below Exam Const: General: cooperative, healthy appearing, no acute distress, well developed, alert and awake Nutritio
[2021-04-29 12:21] LABS: Glucose Point of Care 120 mg/dl (65-105)
--- NOTE | 2021-04-29 12:43 | PC.NURSE ---
Outpatient referral started for Initial DSMT and MNT. [facility].
[2021-04-29 14:00] VITALS: BP 122/70; PULSE 88; RESP 20; TEMP 36.7; O2SAT 96
[2021-04-29 16:44] LABS: Glucose Point of Care 104 mg/dl (65-105)
[2021-04-29 20:31] LABS: Glucose Point of Care 114 mg/dl (65-105)
[2021-04-29] MEDS: AMITRIPTYLINE HCL 25 MG TABLET PO (20:51)
[2021-04-29] MEDS: ENOXAPARIN 40 MG/0.4 ML SYRINGE SUB-Q (20:52)
[2021-04-29 21:17] VITALS: BP 100/55; PULSE 76; RESP 18; TEMP 35.9; O2SAT 85
[2021-04-30] MEDS: HYDROcodone/acetaminophen (*CRX) 5-325 MG TABLET 1 TAB PO ×3 (01:22→17:16)
--- NOTE | 2021-04-30 02:22 | PC.NURSE ---
SPO2 87% on room air, no acute respiratory difficulty, oxygen 2L/min/NC applied will continue to monitor.
[2021-04-30 06:06] VITALS: BP 115/99; PULSE 83; RESP 20; TEMP 36; O2SAT 90
[2021-04-30 06:55] LABS: Basophils Percent Auto 0.6 % (0.2-1.2); Eosinophils Absolute Auto 0.2 K/mm3 (0-0.3); Eosinophils Percent Auto 4.4 % (0-4.4); Hematocrit 30.7 % (37.0-47.0); Hemoglobin 8.8 g/dL (12.0-15.0); Immature Granulocyte Absolute 0.03 K/mm3 (0.00-0.031); Immature Granulocyte Percent A 0.6 % (0-0.5); Lymphocytes Absolute Auto 1.45 K/mm3 (0.9-3.2); Lymphocytes Percent Auto 27.5 % (18.3-44.2); Mean Corpuscular HGB Conc 28.7 g/dl (32-36); Mean Corpuscular Hemoglobin 23.8 pg (26-34); Mean Corpuscular Volume 83.2 fl (80-100); Mean Platelet Volume 8.4 fl (7.4-10.4); Monocytes Absolute Auto 0.6 K/mm3 (0.1-0.6); Monocytes Percent Auto 10.6 % (2.6-8.5); Neutrophils Percent Auto 56.3 % (45.5-73.1); Platelet Count Result 340 k/mm3 (150-375); Red Blood Count 3.69 M/mm3 (4.2-5.4); Red Cell Distribution Width 20.1 % (11.5-14.5); White Blood Count 5.3 K/mm3 (4.5-10.0)
[2021-04-30 07:01] LABS: Alanine Aminotransferase 13 U/L (4-35); Albumin Level 2.6 g/dL (3.5-5.1); Alkaline Phosphatase 72 U/L (38-126); Anion Gap 3 mmol/L (8-16); Aspartate Amino Transferase 26 U/L (14-36); Bilirubin,Total 0.3 mg/dL (0.2-1.3); Blood Urea Nitrogen 11 mg/dL (7-17); Calcium 7.8 mg/dL (8.4-10.2); Carbon Dioxide 31 mmol/L (22-30); Chloride 101 mmol/L (98-107); Estimated CRCL calculation 76 ml/min; Estimated Glomerular Filt Rate > 60; Glucose 107 mg/dL (65-110); Sodium 135 mmol/L (137-145)
[2021-04-30 07:40] LABS: Glucose Point of Care 108 mg/dl (65-105)
--- NOTE | 2021-04-30 08:30 | PM.DS ---
DS: Admitting Diagnosis Discharge Date 04/30/21829 Admitting Diagnosis Fall DS: Discharge Diagnosis Discharge Diagnosis (1) Osteoarthritis: Qualifiers: Laterality: right Osteoarthritis location: hip Osteoarthritis type: unspecified Qualified Code(s): M16.11 - Unilateral primary osteoarthritis, right hip Code(s): M19.90 - Unspecified osteoarthritis, unspecified site Status: Acute Assessment and Plan: Patient fell out of wheelchair X-rays indicate osteoarthritis of bilateral hips Dr. Hurtado consult thank you for your help Pain medications PT/OT (2) PAD (peripheral artery disease): Code(s): I73.9 - Peripheral vascular disease, unspecified Status: Acute Assessment and Plan: Bilateral lower extremity edema Recently completed a course of linezolid Cipro and Flagyl Reports looking better She does have a red swollen bilateral lower legs with skin peeling dry Elevate lower extremities Wound consult to ensure that she has the proper care. (3) HTN (hypertension), benign: Code(s): I10 - Essential (primary) hypertension Status: Acute Assessment and Plan: Blood pressure is 107/50 Continue lisinopril and hydrochlorothiazide Trend blood pressure Adjust therapy as indicated (4) Obesity: Code(s): E66.9 - Obesity, unspecified Status: Acute Assessment and Plan: BMI is 46.5 Dietitian consult Lifestyle modifications and education Might benefit from a GLP1 (5) Anemia: Code(s): D64.9 - Anemia, unspecified Status: Acute Assessment and Plan: H&H 8.8/30.7 Probably anemia of chronic disease Anemia labs in the morning Trend H&H Transfuse as indicated DS: Summary Hospital Course Hospital Course: Patient is a 75-year-old female with a past medical history of hypertension, anemia, anxiety, GERD who presented the ED after a fall. Patient was in a wheelchair and had slid down to the floor. She had hit her right hip. And her knees. Hip x-rays and CTs did not show any acute abnormality other than osteo arthritis with moderate left hip. Upon admission patient had no complaints including chest pain, shortness of breath, nausea, vomiting, diarrhea, constipation, fatigue. Orthopedics was consulted and recommended rehab and mobilization. Patient was noted to have hypothyroidism with TSH of 43.2. Levothyroxine was increased from 50 mcg to 75 mcg. echo from March 24, 2021 showed an EF of greater than 75% grade 2 diastolic dysfunction. Labs have been stable and remained stable throughout the visit including vital signs. Patient is stable for discharge at this time. In clinic did go and see the patient and recommended some lotion on her legs to keep on her legs moist. She denies chest pains, shortness of breath, nausea, vomiting, diarrhea, constipation, weakness, or fatigue. Status at Discharge Functional status at discharge: wheelchair bound Overall status at discharge: patient is progressing back to baseline Time Spent with Patient Time attestation: Total time spent providing and/or coordinating discharge services: 43 minute Time spent: Greater than 30 minutes Specific discharge activities: Diagnostic testing, chart review, developing a treatment plan, education, care coordination documentation, physical exam, result review Exam Const: General: cooperative, healthy appearing, no acute distress, well developed, alert and awake Nutritional Appearance: well nourished Orientation/consciousness: patient oriented x3 Limitations: no limitations HENMT: Head: normal to inspection Ears: hearing grossly normal bilaterally General nose exam: Normal external nose present Mouth: Yes Normal oral and palatal mucosa present, Yes lip normal and Yes tongue normal Teeth and gingiva: abnormal tooth and associated gingiva and poor dentition Eyes: General: appearance normal, both eyes an
--- NOTE | 2021-04-30 08:30 | PM.IMPN ---
Progress Note: A&P Assessment and Plan (1) Osteoarthritis: Qualifiers: Laterality: right Osteoarthritis location: hip Osteoarthritis type: unspecified Qualified Code(s): M16.11 - Unilateral primary osteoarthritis, right hip Code(s): M19.90 - Unspecified osteoarthritis, unspecified site Status: Acute Assessment and Plan: Patient fell out of wheelchair X-rays indicate osteoarthritis of bilateral hips Dr. Hurtado consult thank you for your help Pain medications PT/OT (2) PAD (peripheral artery disease): Code(s): I73.9 - Peripheral vascular disease, unspecified Status: Acute Assessment and Plan: Bilateral lower extremity edema Recently completed a course of linezolid Cipro and Flagyl Reports looking better She does have a red swollen bilateral lower legs with skin peeling dry Elevate lower extremities Wound consult to ensure that she has the proper care. (3) HTN (hypertension), benign: Code(s): I10 - Essential (primary) hypertension Status: Acute Assessment and Plan: Blood pressure is 107/50 Continue lisinopril and hydrochlorothiazide Trend blood pressure Adjust therapy as indicated (4) Obesity: Code(s): E66.9 - Obesity, unspecified Status: Acute Assessment and Plan: BMI is 46.5 Dietitian consult Lifestyle modifications and education Might benefit from a GLP1 (5) Anemia: Code(s): D64.9 - Anemia, unspecified Status: Acute Assessment and Plan: H&H 8.8/30.7 Probably anemia of chronic disease Anemia labs in the morning Trend H&H Transfuse as indicated Subjective Date/time seen: 04/30/21 0830 Interval history: Date/Time: 04/28/21 15:00 Narrative: Patient is a 75-year-old female with a past medical history anxiety, arthritis, cellulitis, diabetes, obesity who presented to the ED with complaints of a fall. Patient was at home in her wheelchair when she had slid out of her wheelchair and fell on the floor. Patient does have hip pain however she said it is even worse and she is not able to stand on it. She does currently rates her pain an 8/10 and is complaining of weakness and fatigue. She is unable to move very well. Have a pelvis CT showed no acute fracture, severe osteoarthritis of the right hip, hip and pelvis x-ray showed advanced right hip osteoarthritis with moderate left hip osteoarthritis. Patient did get upset when I woke her up she said that she is tired and she just wants sleep however she stated that she sleeps a lot since she has been laying around. She is also hungry and is wanting a tray. She denied any chest pain, shortness of breath, nausea, vomiting, diarrhea, constipation, lightheadedness, headache, visual changes, hearing changes, dizziness, sweats, fevers, chills. Patient was recently discharged for bilateral lower extremity cellulitis. They are currently still red however there is no active weeping or discharge at this time. Patient did state that she feels like her legs look better than they did when she was here. She also admits today completing her antibiotic course. Date/Time 04/29/21 1115 Patient was sitting in the chair. She stated that it was not easy for her to transfer to the chair. She asked about knee braces. PT was in the room after working with her to get up. They are recommending a rehab at this time. She also talked to me about diabetes supplies as she was unable to get the right ones the coincided with her insurance. She denies chest pain, shortness of breath, nausea, vomiting, diarrhea, constipation, weakness, and fatigue. Date/Time 04/30/21 0830 Patient was sitting in the chair when I went into the room. She was asking about a knee brace. She was also concerned about her blood pressure she stated she does not want to be started on any blood pressure medicines due to her blood pressure being so low. She denied a
[2021-04-30] MEDS: MICONAZOLE NITRATE 2% CREAM 30 GM TUBE 1 APPLIC TOPICAL (08:44)
[2021-04-30] MEDS: PANTOPRAZOLE 40 MG TABLET PO (08:44)
[2021-04-30] MEDS: hydroCHLOROthiazide 12.5 MG CAPSULE PO (08:44)
[2021-04-30] MEDS: GABAPENTIN 100 MG CAPSULE PO ×3 (08:44→17:15)
[2021-04-30] MEDS: TOLNAFTATE 1% POWDER 45 GM BTL 1 APPLIC TOPICAL (08:45)
[2021-04-30 11:58] LABS: Glucose Point of Care 131 mg/dl (65-105)
[2021-04-30 14:00] VITALS: BP 107/50; PULSE 87; RESP 18; TEMP 36.4; O2SAT 91
[2021-04-30 16:19] LABS: EDCOVIDSCREEN Negative (Negative)
[2021-04-30 16:22] LABS: Glucose Point of Care 131 mg/dl (65-105)
== END 2021-04-30 17:34 ==
LOC: ANHED 12:30 → ANH3MEDSUR 21:21
PROVIDERS: Admitting Provider Internal Medicine; Emergency Provider Emergency Medicine; PCP Family Medicine; Visit Provider Nurse Practitioner
DX: M16.0 Bilateral primary osteoarthritis of hip (principal); M25.551 Pain in right hip; W05.0XXA Fall from non-moving wheelchair, initial encounter; E11.40 Type 2 diabetes mellitus with diabetic neuropathy, unspecified; K21.9 Gastro-esophageal reflux disease without esophagitis; F41.9 Anxiety disorder, unspecified; F12.90 Cannabis use, unspecified, uncomplicated; E11.51 Type 2 diabetes mellitus with diabetic peripheral angiopathy without gangrene; I10 Essential (primary) hypertension; D64.9 Anemia, unspecified; E66.01 Morbid (severe) obesity due to excess calories; Z68.42 Body mass index [BMI] 45.0-49.9, adult; Z79.84 Long term (current) use of oral hypoglycemic drugs; Z79.51 Long term (current) use of inhaled steroids; Z79.891 Long term (current) use of opiate analgesic; Z87.891 Personal history of nicotine dependence; Z20.822 Contact with and (suspected) exposure to COVID-19
CPT/HCPCS: 36415; 73502; 73700; 80053; 82948; 83605; 83735; 85025; 87426; 96372; 96374; 96375; 97110; 97162; 97166; 97535; 99285; A9270; C9803; G0378; J1650; J2270; J3475; L1830